=== PATIENT | male | born 1950 | race Caucasian/White ===

== ENCOUNTER → 2020-08-22 09:32 | Outpatient (REF) | payer MEDICARE, OTHER, SELFPAY ==
--- NOTE | 2020-08-22 09:30 | CA_ITS ---
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 The visually estimated ejection fraction is between 55-60%. - No obvious valvular pathology seen on this study. - There is mild dilatation of the ascending aorta measuring 4.40 cm and mild dilatation of the aortic arch measuring 3.60 cm. Findings Left Ventricle Normal left ventricular cavity size. There is mildly increased left ventricular wall thickness. The left ventricular systolic function is normal. The visually estimated ejection fraction is between 55-60%. There is no evidence of regional wall motion abnormalities. E/E prime ratio is <8, consistent with normal filling pressures. Evidence suggests grade I (mild) diastolic dysfunction. Right Ventricle Normal right ventricular cavity size and systolic function. Atria The left atrium is mildly dilated. The right atrium is normal in size. Aortic Valve There is a normal trileaflet aortic valve. There is no aortic valve stenosis. There is trace (trivial) aortic valve regurgitation. Mitral Valve The mitral valve appears normal. There is trace mitral valve regurgitation. There is no mitral valve stenosis. Pulmonic Valve The pulmonic valve was not well visualized. Tricuspid Valve Normal tricuspid valve structure. There is mild tricuspid valve regurgitation. The pulmonary artery systolic pressure is normal. Great Vessels There is mild dilatation of the ascending aorta measuring 4.40 cm and mild dilatation of the aortic arch measuring 3.60 cm. Venous The inferior vena cava is normal in size and collapses greater than 50% with inspiration. Pericardium/Pleural There is no evidence of pericardial effusion. Prior Study Comparison No significant change compared to prior study dated: 02/26/2020. Recommendations, Care & Conclusions No obvious valvular pathology seen on this study. Measurements 2D Linear Measurements IVSd: 1.12 0.6-0.9/0.6-1.0 cm LVIDd: 4.69 3.9-5.3/4.2-5.9 cm LVIDd Index: 2.02 2.4-3.2/2.2-3.1 cm/m2 LVIDs: 3.11 2.0-3.6 cm LVPWd: 1.11 0.7-1.1 cm Ao Root: 3.90 2.1-3.5 cm LA Diam: 4.10 2.7-3.8/3.0-4.0 cm LAIDs Index: 1.77 1.5-2.3 cm/m2 LV Mass: 237.34 67-162/88-224 g LV Mass Index: 102.30 43-95/49-115 g/m2 LVOT Diam: 2.40 3.0+(-)1.3 cm 2D Systolic Function EF 4C: 59.90 >55% EF 2C: 64.80 >55% EF BiP: 62.40 >55% Mitral Valve MV Pk E: 0.48 MV PK A: 0.62 MV Decel Time: 257.00 E/A: 0.80 E'Lateral: 7.35 E'Medial: 4.54 E/E' Med: 10.60 E/E' Lat: 6.50 PHT: 75.00 MVA PHT: 2.93 Decel [place]: 1.87 Aortic Valve AoV Pk Walter: 1.15 AoV Mn Walter: 0.78 AoV VTI: 0.24 AoV Pk Grad: 5.00 Aov Mn Grad: 3.00 BESSIE Cont.VTI: 3.75 LVOT LVOT Pk Walter: 0.91 LVOT Mn Walter: 0.58 LVOT VTI: 0.20 LVOT Pk Grad: 3.00 LVOT Mn Grad: 2.00 LVOT Diam: 2.40 LVOT Area: 4.52 Diastolic Function MV Pk E: 0.48 MV Pk A: 0.62 E/A: 0.80 E'Medial: 4.54 E/E' Med: 10.60 E' Laterial: 7.35 E/E' Lat: 6.50 Tricuspid Valve TR Pk Walter: 2.08 TR Pk Grad: 17.00 RA Press: 3.00 RVSP: 20.00 Great Vessels Aorta Ao Root-2D: 3.90 2.0-3.7 cm Ao Asc: 4.40 2.1-3.4 cm Ao Arch: 3.60 Updated in Other Vendor System with Status of Final Guy Louie MD electronically signed on 08/23/2020 2:07:40 PM with status of Final
== END ==
LOC: HO.CARD 09:32
PROVIDERS: PCP Internal Medicine; Visit Provider Internal Medicine Cardiovascular Disease
DX: I25.10 Atherosclerotic heart disease of native coronary artery without angina pectoris (principal); I71.2 Thoracic aortic aneurysm, without rupture; Z86.79 Personal history of other diseases of the circulatory system
CPT/HCPCS: 93306

== ENCOUNTER → 2020-08-28 08:51 | Outpatient (BNVA) | payer MEDICARE, OTHER, SELFPAY | PROVIDERS: PCP Internal Medicine; Visit Provider Internal Medicine Cardiovascular Disease | DX: I71.2 Thoracic aortic aneurysm, without rupture (principal); I25.10 Atherosclerotic heart disease of native coronary artery without angina pectoris; Z86.79 Personal history of other diseases of the circulatory system; Z79.899 Other long term (current) drug therapy | CPT/HCPCS: 93005; 99212 ==

== ENCOUNTER 2020-12-16 07:57 | Outpatient (REF) | payer MEDICARE, OTHER, SELFPAY ==
[2020-12-16 11:53] LABS: Alanine Aminotransferase 21 U/L (0-40); Anion Gap 12 (12-20); Aspartate Amino Transferase 20 U/L (5-37); Blood Urea Nitrogen 14 mg/dL (9-16); Calcium 8.6 mg/dL (8.4-10.2); Carbon Dioxide 26 mmol/L (22-29); Chloride 107 mmol/L (96-108); Cholesterol 128 mg/dL; Estimated Glomerular Filt Rate > 60; Glucose Fasting 179 mg/dL (60-99); HDL Cholesterol 47 mg/dL; LDL Cholesterol Calculated 68 mg/dl; Potassium 4.5 mmol/L (3.3-5.1); Sodium 140 mmol/L (135-145); Triglycerides 69 mg/dL
[2020-12-16 12:17] LABS: Estimated Average Glucose 163 mg/dL; Hemoglobin A1c % 7.3 %
== END 2020-12-16 07:58 | disposition home or self-care (01) ==
LOC: HO.HMGCLDS 07:57
PROVIDERS: PCP Internal Medicine; Visit Provider Internal Medicine
DX: E11.9 Type 2 diabetes mellitus without complications (principal); E78.5 Hyperlipidemia, unspecified; I10 Essential (primary) hypertension
CPT/HCPCS: 36415; 80048; 80061; 83036; 84450; 84460

== ENCOUNTER 2021-03-14 07:42 | Outpatient (REF) | payer MEDICARE, OTHER, SELFPAY ==
[2021-03-14 11:28] LABS: Estimated Average Glucose 154 mg/dL
[2021-03-14 11:41] LABS: Alanine Aminotransferase 21 U/L (0-40); Anion Gap 11 (12-20); Aspartate Amino Transferase 17 U/L (5-37); Blood Urea Nitrogen 16 mg/dL (9-16); Calcium 9.1 mg/dL (8.4-10.2); Carbon Dioxide 27 mmol/L (22-29); Chloride 102 mmol/L (96-108); Cholesterol 132 mg/dL; Estimated Glomerular Filt Rate > 60; Glucose Fasting 172 mg/dL (60-99); HDL Cholesterol 42 mg/dL; LDL Cholesterol Calculated 69 mg/dl; Potassium 4.5 mmol/L (3.3-5.1); Sodium 135 mmol/L (135-145); Triglycerides 105 mg/dL
== END 2021-03-14 07:43 | disposition home or self-care (01) ==
LOC: HO.HMGCLDS 07:42
PROVIDERS: PCP Internal Medicine; Visit Provider Internal Medicine
DX: E11.65 Type 2 diabetes mellitus with hyperglycemia (principal); E66.09 Other obesity due to excess calories; I10 Essential (primary) hypertension; I25.10 Atherosclerotic heart disease of native coronary artery without angina pectoris
CPT/HCPCS: 36415; 80048; 80061; 83036; 84450; 84460

== ENCOUNTER 2021-06-12 09:01 | Outpatient (REF) | payer MEDICARE, OTHER, SELFPAY ==
[2021-06-12 12:44] LABS: Estimated Average Glucose 166 mg/dL; Hemoglobin A1c % 7.4 %
[2021-06-12 13:06] LABS: Alanine Aminotransferase 27 U/L (0-40); Anion Gap 13 (12-20); Aspartate Amino Transferase 25 U/L (5-37); Blood Urea Nitrogen 18 mg/dL (9-16); Calcium 9.6 mg/dL (8.4-10.2); Carbon Dioxide 27 mmol/L (22-29); Chloride 106 mmol/L (96-108); Cholesterol 124 mg/dL; Estimated Glomerular Filt Rate > 60; Glucose Fasting 204 mg/dL (60-99); HDL Cholesterol 46 mg/dL; LDL Cholesterol Calculated 65 mg/dl; Sodium 141 mmol/L (135-145); Triglycerides 66 mg/dL
== END 2021-06-12 09:02 | disposition home or self-care (01) ==
LOC: HO.HMGCLDS 09:01
PROVIDERS: PCP Internal Medicine; Visit Provider Internal Medicine
DX: E66.09 Other obesity due to excess calories (principal); I10 Essential (primary) hypertension; I25.10 Atherosclerotic heart disease of native coronary artery without angina pectoris; E11.9 Type 2 diabetes mellitus without complications
CPT/HCPCS: 36415; 80048; 80061; 83036; 84450; 84460

== ENCOUNTER → 2021-08-20 14:39 | Outpatient (REF) | payer MEDICARE, OTHER, SELFPAY ==
--- NOTE | 2021-08-20 14:42 | CA_ITS ---
Transthoracic Echocardiogram Patient (Last, First, Middle): Harley Canseco, Gender: Male Date of : 1950 Age: 70 Procedure Date: 08/20/2021 Procedure Type: Transthoracic Echocardiogram Location: OP Height: 182.88 cm Weight: 106.6 kg BSA: 2.28 m2 Heart Rate: bpm BP: 122 / 80 mmHg Crime Data Specialist: ROGER Hernandez MD: Kb Ariza MD Circuit Rider: Kb Ariza MD Symptoms: I71.2 - Thoracic aortic aneurysm, without rupture Study Quality: Fair ECG Rhythm: Sinus Conclusions: - 1. Normal LV systolic function with grade 1 diastolic dysfunction 2. Mildly dilated ascending aorta at 4.4 cm 3. Normal cardiac valvular Doppler 4. Normal RV systolic pressure 5. No gross pericardial effusion Findings Left Ventricle Normal left ventricular size, thickness, and systolic function. The visually estimated ejection fraction is between 55-60%. Spectral Doppler is indicative of an impaired relaxation filling pattern. E/E prime ratio is <8, consistent with normal filling pressures. Evidence suggests grade I (mild) diastolic dysfunction.Measured global endocardial longitudinal strain is 16.4%, slightly reduced Right Ventricle Normal right ventricular cavity size and systolic function. Atria The left atrium is likely dilated. There is no evidence of interatrial shunt. The right atrium is normal in size. Aortic Valve Normal aortic valve structure and function. There is no aortic valve stenosis. There is no aortic valve regurgitation. Mitral Valve There is mild anterior and posterior mitral leaflet thickening. There is trace mitral valve regurgitation. There is no mitral valve stenosis. Pulmonic Valve The pulmonic valve was not well visualized. Tricuspid Valve Likely normal tricuspid valve structure and function. There is trace tricuspid valve regurgitation. The right ventricular systolic pressure is normal. The right ventricular systolic pressure is 24 mmHg. Normal right atrial pressure. There is no evidence of pulmonary hypertension. Great Vessels The pulmonary artery was not well visualized. There is mild dilatation of the ascending aorta measuring 4.40 cm. Venous The inferior vena cava is normal in size and collapses greater than 50% with inspiration. Pericardium/Pleural There is no evidence of pericardial effusion. Prior Study Comparison No significant change compared to prior study dated: 08/22/2020. Measurements 2D Linear Measurements IVSd: 1.15 0.6-0.9/0.6-1.0 cm LVIDd: 4.80 3.9-5.3/4.2-5.9 cm LVIDd Index: 2.11 2.4-3.2/2.2-3.1 cm/m2 LVIDs: 2.98 2.0-3.6 cm LVPWd: 1.19 0.7-1.1 cm LA Diam: 4.70 2.7-3.8/3.0-4.0 cm LAIDs Index: 2.06 1.5-2.3 cm/m2 LV Mass: 263.54 67-162/88-224 g LV Mass Index: 115.59 43-95/49-115 g/m2 LVOT Diam: 2.50 3.0+(-)1.3 cm 2D Systolic Function EF 4C: 57.10 >55% EF 2C: 55.60 >55% EF BiP: 55.50 >55% Mitral Valve MV Pk E: 0.45 MV PK A: 0.71 MV Decel Time: 437.00 E/A: 0.60 E'Lateral: 5.77 E'Medial: 4.90 E/E' Med: 9.30 E/E' Lat: 7.90 PHT: 128.00 MVA PHT: 1.72 Decel Bee: 1.04 Aortic Valve AoV Pk Walter: 1.00 AoV Mn Walter: 0.68 AoV VTI: 0.21 AoV Pk Grad: 4.00 Aov Mn Grad: 2.00 BESSIE Cont.VTI: 3.99 LVOT LVOT Pk Walter: 0.80 LVOT Mn Walter: 0.52 LVOT VTI: 0.17 LVOT Pk Grad: 3.00 LVOT Mn Grad: 1.00 LVOT Diam: 2.50 LVOT Area: 4.91 Diastolic Function MV Pk E: 0.45 MV Pk A: 0.71 E/A: 0.60 E'Medial: 4.90 E/E' Med: 9.30 E' Laterial: 5.77 E/E' Lat: 7.90 Right Ventricle TAPSE (mm): 16.00 TVS' Walter: 8.70 Tricuspid Valve TR Pk Walter: 2.27 TR Pk Grad: 21.00 RA Press: 3.00 RVSP: 24.00 Great Vessels Aorta Sinus of Valsalva: 3.90 2.0-3.5 cm Ao Asc: 4.40 2.1-3.4 cm Ao Arch: 3.60 Updated in Other Vendor System with Status of Final Kb Ariza MD electronically signed on 08/21/2021 2:59:11 PM with status of Final
== END ==
LOC: HO.CARD 14:39
PROVIDERS: PCP Internal Medicine; Visit Provider Internal Medicine Cardiovascular Disease
DX: I71.2 Thoracic aortic aneurysm, without rupture (principal)
CPT/HCPCS: 93306; 93356

== ENCOUNTER 2021-10-13 08:00 | Outpatient (REF) | payer MEDICARE, OTHER, SELFPAY ==
[2021-10-13 12:10] LABS: Estimated Average Glucose 157 mg/dL; Hemoglobin A1c % 7.1 %
[2021-10-13 12:11] LABS: Alanine Aminotransferase 20 U/L (0-40); Anion Gap 11 (12-20); Aspartate Amino Transferase 19 U/L (5-37); Blood Urea Nitrogen 11 mg/dL (9-16); Calcium 9.4 mg/dL (8.4-10.2); Carbon Dioxide 27 mmol/L (22-29); Chloride 106 mmol/L (96-108); Cholesterol 118 mg/dL; Estimated Glomerular Filt Rate > 60; Glucose Fasting 177 mg/dL (60-99); HDL Cholesterol 45 mg/dL; LDL Cholesterol Calculated 55 mg/dl; Potassium 4.6 mmol/L (3.3-5.1); Sodium 139 mmol/L (135-145); Triglycerides 92 mg/dL
[2021-10-13 12:25] LABS: Creatinine Urine 136.19 mg/dL
== END 2021-10-13 08:01 | disposition home or self-care (01) ==
LOC: HO.HMGCLDS 08:00
PROVIDERS: Visit Provider Internal Medicine
DX: E66.09 Other obesity due to excess calories (principal); I10 Essential (primary) hypertension; I25.10 Atherosclerotic heart disease of native coronary artery without angina pectoris; E11.9 Type 2 diabetes mellitus without complications
CPT/HCPCS: 36415; 80048; 80061; 82043; 83036; 84450; 84460

== ENCOUNTER 2022-04-15 07:30 | Outpatient (REF) | payer MEDICARE, OTHER, SELFPAY ==
[2022-04-15 11:32] LABS: Estimated Average Glucose 143 mg/dL; Hemoglobin A1c % 6.6 %
[2022-04-15 11:52] LABS: Alanine Aminotransferase 19 U/L (0-40); Anion Gap 13 (12-20); Aspartate Amino Transferase 18 U/L (5-37); Blood Urea Nitrogen 18 mg/dL (9-16); Calcium 9.2 mg/dL (8.4-10.2); Carbon Dioxide 26 mmol/L (22-29); Chloride 105 mmol/L (96-108); Cholesterol 126 mg/dL; Estimated Glomerular Filt Rate > 60; Glucose Fasting 170 mg/dL (60-99); HDL Cholesterol 49 mg/dL; LDL Cholesterol Calculated 55 mg/dl; Potassium 4.7 mmol/L (3.3-5.1); Sodium 139 mmol/L (135-145); Triglycerides 112 mg/dL
[2022-04-15 11:55] LABS: PSA,Total (Free>4and<10) 0.41 ng/mL (0.00-4.00)
== END 2022-04-15 07:31 | disposition home or self-care (01) ==
LOC: HO.HMGCLDS 07:30
PROVIDERS: PCP Internal Medicine; Visit Provider Internal Medicine
DX: Z12.5 Encounter for screening for malignant neoplasm of prostate (principal); E66.09 Other obesity due to excess calories; I10 Essential (primary) hypertension; I25.10 Atherosclerotic heart disease of native coronary artery without angina pectoris; E11.9 Type 2 diabetes mellitus without complications
CPT/HCPCS: 36415; 80048; 80061; 82306; 83036; 84153; 84450; 84460

== ENCOUNTER 2022-06-15 11:24 | Outpatient (REF) | payer MEDICARE, OTHER, SELFPAY ==
[2022-06-15 12:14] LABS: Influenza A PCR NEGATIVE (Negative); Influenza B PCR NEGATIVE (Negative); Resp Syncy Virus RNA Qual PCR NEGATIVE (Negative); SARS COV2 PCR INHOUSE NEGATIVE (Negative)
== END 2022-06-15 11:25 | disposition home or self-care (01) ==
LOC: HO.LNP 11:24
PROVIDERS: Visit Provider Physician Assistant
DX: Z20.822 Contact with and (suspected) exposure to COVID-19 (principal); B34.9 Viral infection, unspecified
CPT/HCPCS: 0241U

== ENCOUNTER → 2022-09-01 09:47 | Outpatient (REF) | payer MEDICARE, SELFPAY ==
--- NOTE | 2022-09-01 09:52 | CA_ITS ---
Transthoracic Echocardiogram Patient (Last, First, Middle): Harley Canseco, Gender: Male Date of : 1950 Age: 71 Procedure Date: 09/01/2022 Procedure Type: Transthoracic Echocardiogram Location: OP Height: 180.34 cm Weight: 104.33 kg BSA: 2.24 m2 Heart Rate: 57 bpm BP: 130 / 68 mmHg Beverage Specialist: DINORA Referring MD: Kb Ariza MD Symptoms: I71.2 - Thoracic aortic aneurysm, without rupture Study Quality: Adequate ECG Rhythm: Bradycardia Conclusions: - The left ventricular systolic function is normal. The calculated ejection fraction is 55% by biplane method. - No obvious valvular pathology seen on this study. - There is moderate dilatation of the ascending aorta measuring 4.60 cm. Findings Left Ventricle Normal left ventricular cavity size. There is normal left ventricular wall thickness. The left ventricular systolic function is normal. The calculated ejection fraction is 55% by biplane method. There is no evidence of regional wall motion abnormalities. Diastolic function is normal for age. LV peak GLS -15.8%. Right Ventricle Normal right ventricular cavity size and systolic function. Atria Both atria are normal in size. Aortic Valve There is a normal trileaflet aortic valve. There is no aortic valve stenosis. There is no aortic valve regurgitation. Mitral Valve The mitral valve appears normal. There is no mitral valve regurgitation. There is no mitral valve stenosis. Pulmonic Valve The pulmonic valve is likely normal. Tricuspid Valve Normal tricuspid valve structure. There is mild tricuspid valve regurgitation. There is no evidence of pulmonary hypertension. Great Vessels The sinuses of valsalva and aortic arch are normal in size. There is moderate dilatation of the ascending aorta measuring 4.60 cm. Venous The inferior vena cava was not well visualized. Pericardium/Pleural There is no evidence of pericardial effusion. Prior Study Comparison No significant change compared to prior study dated: 08/20/2021. slight increase in ascending aortic size. Recommendations, Care & Conclusions No obvious valvular pathology seen on this study. Measurements 2D Linear Measurements IVSd: 1.05 0.6-0.9/0.6-1.0 cm LVIDd: 5.99 3.9-5.3/4.2-5.9 cm LVIDd Index: 2.67 2.4-3.2/2.2-3.1 cm/m2 LVIDs: 3.86 2.0-3.6 cm LVPWd: 0.69 0.7-1.1 cm LA Diam: 4.10 2.7-3.8/3.0-4.0 cm LAIDs Index: 1.83 1.5-2.3 cm/m2 LV Mass: 256.66 67-162/88-224 g LV Mass Index: 114.58 43-95/49-115 g/m2 LVOT Diam: 2.50 3.0+(-)1.3 cm 2D Systolic Function EF 4C: 55.30 >55% EF 2C: 52.40 >55% EF BiP: 54.90 >55% Mitral Valve MV Pk E: 0.48 MV PK A: 0.45 MV Decel Time: 310.00 E/A: 1.10 E'Lateral: 9.25 E'Medial: 5.00 E/E' Med: 9.60 E/E' Lat: 5.20 PHT: 91.00 MVA PHT: 2.42 Decel [place]: 1.55 Aortic Valve AoV Pk Walter: 1.02 AoV Pk Grad: 4.00 BESSIE: 4.37 LVOT LVOT Pk Walter: 0.91 LVOT Mn Walter: 0.67 LVOT VTI: 0.22 LVOT Pk Grad: 3.00 LVOT Mn Grad: 2.00 LVOT Diam: 2.50 LVOT Area: 4.91 Diastolic Function MV Pk E: 0.48 MV Pk A: 0.45 E/A: 1.10 E'Medial: 5.00 E/E' Med: 9.60 E' Laterial: 9.25 E/E' Lat: 5.20 Right Ventricle TAPSE (mm): 22.60 TVS' Walter: 11.60 Tricuspid Valve TR Pk Walter: 2.16 TR Pk Grad: 19.00 RA Press: 3.00 RVSP: 22.00 Great Vessels Aorta Sinus of Valsalva: 3.90 2.0-3.[address] [place]: 3.50 1.7-3.4 cm Ao Asc: 4.60 2.1-3.4 cm Ao Arch: 3.50 Ao Desc: 2.50 Pulmonary Veins Pulm Vein S/D 1.50 Pulmonary Valve PV Pk Walter: 1.09 Peak PV Grad: 5.00 Updated in Other Vendor System with Status of Final Guy Louie MD electronically signed on 09/01/2022 11:40:40 AM with status of Final
== END ==
LOC: HO.CARD 09:47
PROVIDERS: PCP Internal Medicine; Visit Provider Internal Medicine Cardiovascular Disease
DX: I71.20 Thoracic aortic aneurysm, without rupture, unspecified (principal)
CPT/HCPCS: 93306; 93356

== ENCOUNTER 2022-09-15 07:19 | Outpatient (REF) | payer MEDICARE, SELFPAY ==
[2022-09-15 12:00] LABS: Estimated Average Glucose 151 mg/dL; Hemoglobin A1c % 6.9 %
[2022-09-15 12:16] LABS: Alanine Aminotransferase 27 U/L (0-40); Anion Gap 12 (12-20); Aspartate Amino Transferase 23 U/L (5-37); Blood Urea Nitrogen 10 mg/dL (9-16); Calcium 9.2 mg/dL (8.4-10.2); Carbon Dioxide 29 mmol/L (22-29); Chloride 105 mmol/L (96-108); Cholesterol 123 mg/dL; Estimated Glomerular Filt Rate > 60; Glucose Fasting 164 mg/dL (60-99); HDL Cholesterol 49 mg/dL; LDL Cholesterol Calculated 59 mg/dl; Potassium 4.8 mmol/L (3.3-5.1); Sodium 141 mmol/L (135-145); Triglycerides 77 mg/dL
[2022-09-15 12:24] LABS: Creatinine Urine 103.15 mg/dL; Microalbum/Creatinine Ratio Ur 4.8 ug/mg cr
== END 2022-09-15 07:20 | disposition home or self-care (01) ==
LOC: HO.HMGCLDS 07:19
PROVIDERS: PCP Internal Medicine; Visit Provider Internal Medicine
DX: E66.09 Other obesity due to excess calories (principal); I10 Essential (primary) hypertension; I25.10 Atherosclerotic heart disease of native coronary artery without angina pectoris; E11.9 Type 2 diabetes mellitus without complications
CPT/HCPCS: 36415; 80048; 80061; 82043; 83036; 84450; 84460

== ENCOUNTER → 2022-09-21 10:23 | Outpatient (BNVA) | payer MEDICARE, SELFPAY | PROVIDERS: PCP Internal Medicine; Referring Provider Internal Medicine; Visit Provider Internal Medicine Cardiovascular Disease | DX: I71.20 Thoracic aortic aneurysm, without rupture, unspecified (principal); I25.10 Atherosclerotic heart disease of native coronary artery without angina pectoris; I10 Essential (primary) hypertension; Z98.890 Other specified postprocedural states | CPT/HCPCS: 93005; 99212 ==

== ENCOUNTER 2023-03-21 12:13 | Outpatient (AMB) | payer MEDICARE, SELFPAY ==
--- NOTE | 2023-03-21 11:52 | A.OFFPC_ITS ---
Vital Signs 03/21/23 12:30 Height 6 ft Weight 227 lb BMI 30.8 BP 134/86 Blood Pressure Location Rt brachial Position Sitting Pulse 63 Pulse Source Pulse Oximeter Pulse Oximetry (%) 96 Oxygen Delivery Method Room Air Intake Visit Reasons: Annual PE Intake Note: Patient is here today or his Annual PE. Allergies No Known Allergies Allergy (Verified 03/21/23 13:01) Medication List - Last Reconciled 03/21/23 by Mary Walker MD aspirin (Adult Low Dose Aspirin) 81 mg PO DAILY lisinopril 10 mg PO DAILY metformin 500 mg PO BID 90 days metoprolol succinate ER 100 mg PO DAILY rosuvastatin 20 mg PO BEDTIME Tobacco use date assessed: 03/21/23 Fall risk assessment: No Falls in past year Last assessed Fall Risk: 03/21/23 Dental Screening Dental Screen Date: 03/21/23 Did you have a dental visit in the last 12 months?: Yes Did you have a dental problem in the last 6 months where you did not have access to dental care?: No Was dental information given to patient?: Patient has dentist HPI Annual PE HPI Details 72-year-old male here today for his phys ical exam. He had his last colonoscopy done by Dr. Ozuna in 2011, showed normal findings, overdue for his repeat screening. Patient states that he will just contact Dr. Ozuna's office and will schedule appointment. Is also here for follow-up on his diabetes mellitus, hypertension and hyperlipidemia. He has been taking his medications as directed, but admits to being sedentary not getting much exercise, but has been following recommended diet. His latest hemoglobin A1c is at 6.8%. He has been feeling well, but would like to get rash on his left temporal area checked. Has been present now for the last several weeks, feels scaly/ he also has been experiencing occasional nocturnal leg cramps. Takes magnesium supplements as needed which has been helping. [facility] Medical History (Updated 03/21/23 @ 13:17 by Mary Walker MD) Nocturnal leg cramps Type 2 diabetes mellitus without complication, with no history of insulin use Obesity due to excess calories Diabetes mellitus with hyperglycemia, without long-term current use of insulin HTN (hypertension) History of cardiomyopathy CAD (coronary artery disease) Thoracic aortic aneurysm Surgical History H/O cardiac catheterization Family History Father Diabetes mellitus Mother CVD (cardiovascular disease) Myocardial infarction Sister HTN (hypertension) Breast cancer Sister Breast cancer HTN (hypertension) Brother Cancer of pancreas Lung cancer HTN (hypertension) Sister No problems noted. Sister No problems noted. Sister No problems noted. Sister No problems noted. Daughter No problems noted. Daughter No problems noted. Social History Housing: House Patient Tobacco Use Status: Former Tobacco user Tobacco use type: Cigarette Years Smoked: 42 e-Cigarette/Vaping Use: Never Used Second Hand Smoke Exposure: No service: No Current occupational status: retired Cognitive needs: No Hearing needs: No Vision needs: Yes Questionnaire PHQ-9 Over the last 2 weeks, how often have you been bothered by any of the following problems? 1. Little interest or pleasure in doing things: not at all 2. Feeling down, depressed, or hopeless: not at all 3. Trouble falling or staying asleep, or sleeping too much: not at all 4. Feeling tired or having little energy: not at all 5. Poor appetite or overeating: not at all 6. Feeling bad about yourself - or that you are a failure or have let yourself or your family down: not at all 7. Trouble concentrating on things, such as reading the newspaper or watching television: not at all 8. Moving or speaking so slowly that other people could have noticed. Or the opposite - being so fidgety or restless that you have been moving around a lot more than usual: not at all 9. Thoughts that you would be better off or of hurting yourself in some way: not at all Total score: 0 Depression Screening Interpretation: Negative 70141 - PHQ-9 Billing: Yes Source: Developed by Drs. Barrington Morocho, Pat Eli, Moi Morin and colleagues, with an educational natanael from [employer]. Thrive Questionnaire Date Thrive assessed: 03/21/23 I am a: Patient What is your living situation today?: I have a steady place to live Within the past 12 months, did the food you bought not last and you didn't have the money to get more?: Never true Within the past 12 months, did you worry whether your food would run out before you got money to buy more?: Never true Do you have trouble paying for medicines?: No Do you have trouble getting transportation to medical appointments?: No Do you have trouble paying your heating and electricity bill?: No Do you have trouble taking care of your child, family member or friend?: No Do you have trouble with day-to-day activities such as bathing, preparing meals, shopping, managing finances, etc.?: No Are you currently unemployed and looking for a job?: No Are you interested in more education?: No AUDIT C Alcohol Use Questionnaire (AUDIT-C) 1. How often do you have a drink containing alcohol?: Monthly or less 2. How many drinks containing alcohol do you have on a typical day when you are drinking?: 1 or 2 3. How often do you have six or more drinks on one occasion?: Never Total Score: 1 Score Reviewed/Action Taken: Yes OLIVIER-7 AMB Questionnaire OLIVIER-7 Date OLIVIER - 7 assessed: 03/21/23 Feeling nervous, anxious, or on edge: 0 = Not at all Not being able to stop or control worryin = Not at all Worrying too much about different things: 0 = Not at all Trouble relaxin = Not at all Being so restless that it is hard to sit still: 0 = Not at all Becoming easily annoyed or irritable: 0 = Not at all Feeling afraid as if something awful might happen: 0 = Not at all Total OLIVIER-7 score (0-4 normal; 5-9 mild; 10-14 moderate; 15-21 severe): 0 Source: Developed by Drs. Barrington Morocho, Pat Eli, Moi Morin and colleagues, with an educational natanael from [employer]. OLIVIER-7 Assessment Billing OLIVIER-7 Assessment Tool: OLIVIER-7 Assessment 68638 Review of Systems Const Denies fatigue, Denies fever(s) and Denies weakness Eyes Details: sees Brook Johnson O.Jose yearly Denies change in vision ENT Reports Normal hearing present Card Denies chest pain, Denies leg edema, Denies lightheadedness, Denies palpitations and Denies dyspnea Resp Denies cough and Denies dyspnea GI Denies abdominal pain, Denies melena, Denies hematochezia, Denies change in stool character and Denies heartburn Denies dysuria, Denies testicular mass, Denies testicular pain, Denies urinary frequency and Denies urinary incontinence Musc Denies abnormal gait, Denies back pain, Denies muscle weakness, Denies numbness, Denies radiating pain into limb and Denies tingling Skin/Breast Reports as per HPI Neuro Reports Normal hearing present, Denies abnormal gait, Denies numbness, Denies Sensory deficit (Neuro), Denies tingling and Denies weakness Psych Reports no additional complaints Endo Denies fatigue and Denies palpitations Germain/Lymph Reports no additional complaints Aller/Immun Reports no additional complaints Physical exam (Primary Care) Vital Signs: Last Vital Signs Pulse 63 03/21/23 12:30 BP 134/86 03/21/23 12:30 Pulse Ox 96 03/21/23 12:30 Oxygen Delivery Method Room Air 03/21/23 12:30 BMI result Body Mass Index 30.8 Tobacco/Smoking Status: Tobacco use Status Tobacco use date assessed 03/21/23 03/21/23 12:35 Patient Tobacco Use Status Former Tobacco user 03/21/23 11:52 Tobacco use type Cigarette 03/21/23 11:52 e-Cigarette/Vaping Use Never Used 03/21/23 11:52 PHQ-9: PHQ-9 Score PHQ-9: Total score 0 03/21/23 13:18 Depression Screening Interpretation: Negative Thrive Assessment: Date of Thrive Assessment Date Thrive assessed 03/21/23 03/21/23 12:38 Const General: comfortable, no acute distress and alert Nutritional Appearance: obese Orientation/consciousness: patient oriented x3 Limitations: no limitations HENMT Ears: external ears normal, TM's normal bilaterally and EAC's normal General nose exam: Normal external nose present and No nasal discharge present Mouth: oropharynx normal and moist mucous membranes Eyes General: appearance normal, both eyes and all related structures Conjunctivae: conjunctivae normal Sclerae: sclerae normal Pupils: Equal, round and reactive pupils present EOM: EOMs intact bilaterally Neck Neck: Yes full ROM, Yes no lymphadenopathy and Yes supple Resp Effort & Inspection: normal respiratory effort and able to speak in complete sentences Auscultation: clear to auscultation bilaterally Cardio Rate: regular rate Rhythm: regular rhythm Heart sounds: S1 normal heart sound present and S2 normal heart sound present GI Palpation (GI): Soft to palpation, nontender and no masses Auscultation: normal bowel sounds Back/Spine/Pelvis Back: No back tenderness Skin Other: Scaly erythematous patch on left temporal area, nontender to palpation Neuro General: patient oriented x3, gait normal, tone normal, moves all extremities, Normal light touch and pain sensation and no focal motor deficits Cranial nerves: Yes Equal, round and reactive pupils present and Yes Normal hearing present Cognition (Neuro): normal cognition Sensory Exam: No Sensory deficit (Neuro) Extrem General: Yes full ROM, Yes no joint enlargement, Yes no clubbing, cyanosis or edema and Yes no calf tenderness Psych Appearance: grossly normal and well kempt Mental Status: mental status grossly normal Speech and movement: Normal speech and movement present Affect: normal affect Attitude: cooperative Thought content: Normal thought content present and no homicidality Results AMB Hemoglobin A1c AMB Hemoglobin A1c 6.8 % Last Edit by Radha Campos CMA on 03/21/23 12:43 Results Reviewed Results Reviewed: Laboratory Last Values Hgb A1c (Clinic) 6.8 % (4.0-6.0) H 03/21/23 12:38 Assessment and Plan Assessment & Plan (1) Annual visit for general adult medical examination with abnormal findings: Code(s): Z00.01 - Encounter for general adult medical examination with abnormal findings Plan: Continued regular dental visit every 6 months and regular eye exams, yearly, currently up-to-date.. Take adequate calcium in diet and vitamin-D 3 at 2000 IU per cap once a day, in addition to weight-bearing exercises to help maintain good muscle tone and weight control. Instructed to do self testicular exam to check for any mass. Overdue for his screening colonoscopy done by Dr. Ozuna in 2021. States that he will contact his office and schedule own appointment. Reminded to get his COVID booster, flu shot, and Shingrix vaccination. Up-to-date with his pneumonia vaccine and Tdap (2) Facial skin lesion: Code(s): L98.9 - Disorder of the skin and subcutaneous tissue, unspecified Plan: Has a erythematous scaly lesion on left temporal area, referred to [facility] dermatology for further evaluation and management (3) Type 2 diabetes mellitus without complication, with no history of insulin use: Code(s): E11.9 - Type 2 diabetes mellitus without complications Plan: Recent hemoglobin A1c is 6.8%. Continue with metformin 500 mg per tablet taken 1 tablet twice a day. continue to check fasting blood sugar at home, maintain log and bring to next appointment for review. Reinforced diabetic diet and regular exercise with patient. Counseled regarding importance of yearly diabe nena retinopathy screening, sees Brook Johnson OD. Patient advised to inspect feet daily, for any signs of injury, callus or infection. Compliance with diet and regular exercise again stressed. Blood pressure goal is less than 130/80, goal LDL is less than 100 and goal hemoglobin A1c is less than 7% follow-up appointment made in--August 2023, after fasting labs done. (4) Obesity due to excess calories: Code(s): E66.09 - Other obesity due to excess calories Plan: Continue with adhering to healthy eating habits and getting regular exercise. (5) HTN (hypertension): Code(s): I10 - Essential (primary) hypertension Qualifiers: Hypertension type: primary hypertension Qualified Code(s): I10 - Essential (primary) hypertension Plan: Blood pressure at goal of less than 130/80. Continue with current medication. Reinforced importance of following a low sodium diet, getting regular exercise, and lowering stress levels. Orders: Orders AMB Hemoglobin A1c 03/21/23 E11.9 - Type 2 diabetes mellitus without complications Alanine Aminotransferase 08/19/23 E11.9 - Type 2 diabetes mellitus without complications, E66.09 - Other obesity due to excess calories, G47.62 - Sleep related leg cramps, I10 - Essential (primary) hypertension, I25.10 - Atherosclerotic heart disease of [place] coronary artery without angina pectoris, Z00.01 - Encounter for general adult medical examination with abnormal findings Aspartate Amino Transferase 08/19/23 E11.9 - Type 2 diabetes mellitus without complications, E66.09 - Other obesity due to excess calories, G47.62 - Sleep related leg cramps, I10 - Essential (primary) hypertension, I25.10 - Atherosclerotic heart disease of [place] coronary artery without angina pectoris, Z00.01 - Encounter for general adult medical examination with abnormal findings Hemoglobin A1c 08/19/23 E11.9 - Type 2 diabetes mellitus without complications, E66.09 - Other obesity due to excess calories, G47.62 - Sleep related leg cramps, I10 - Essential (primary) hypertension, I25.10 - Atherosclerotic heart disease of [place] coronary artery without angina pectoris, Z00.01 - Encounter for general adult medical examination with abnormal findings Lipid Panel 08/19/23 E11.9 - Type 2 diabetes mellitus without complications, E66.09 - Other obesity due to excess calories, G47.62 - Sleep related leg cramps, I10 - Essential (primary) hypertension, I25.10 - Atherosclerotic heart disease of [place] coronary artery without angina pectoris, Z00.01 - Encounter for general adult medical examination with abnormal findings Basic Metabolic Panel Fasting 08/19/23 E11.9 - Type 2 diabetes mellitus without complications, E66.09 - Other obesity due to excess calories, G47.62 - Sleep related leg cramps, I10 - Essential (primary) hypertension, I25.10 - Atherosclerotic heart disease of [place] coronary artery without angina pectoris, Z00.01 - Encounter for general adult medical examination with abnormal findings Microalbumin, Random (w Creat) 08/19/23 E11.9 - Type 2 diabetes mellitus without complications, E66.09 - Other obesity due to excess calories, G47.62 - Sleep related leg cramps, I10 - Essential (primary) hypertension, I25.10 - Atherosclerotic heart disease of [place] coronary artery without angina pectoris, Z00.01 - Encounter for general adult medical examination with abnormal findings Vitamin D 25-OH Total 08/19/23 E11.9 - Type 2 diabetes mellitus without complications, E66.09 - Other obesity due to excess calories, G47.62 - Sleep related leg cramps, I10 - Essential (primary) hypertension, I25.10 - Atherosclerotic heart disease of [place] coronary artery without angina pectoris, Z00.01 - Encounter for general adult medical examination with abnormal findings Magnesium 08/19/23 E11.9 - Type 2 diabetes mellitus without complications, E66.09 - Other obesity due to excess calories, G47.62 - Sleep related leg cramps, I10 - Essential (primary) hypertension, I25.10 - Atherosclerotic heart disease of [place] coronary artery without angina pectoris, Z00.01 - Encounter for general adult medical examination with abnormal findings Referrals Dermatology Referral L98.9 - Disorder of the skin and subcutaneous tissue, unspecified Coding Level of Care Code Est Pt Prev Care >65y(86503) Diagnoses Annual visit for general adult medical examination with abnormal findings Z00.01 Facial skin lesion L98.9 Type 2 diabetes mellitus without complication, with no history of insulin use E11.9 Obesity due to excess calories E66.09 Primary hypertension I10 Hypertension type: primary hypertension Additional Codes OLIVIER-7 Assessment Billing - OLIVIER-7 Assessment Tool: OLIVIER-7 Assessment [id number] ([id number])
[2023-03-21 12:30] VITALS: BP 134/86; PULSE 63; O2SAT 96; BMI 30.8
== END 2023-03-21 13:16 | disposition home or self-care (01) ==
PROVIDERS: PCP Internal Medicine; Visit Provider Internal Medicine
DX: E11.9 Type 2 diabetes mellitus without complications (principal)
CPT/HCPCS: 83036; 99397

== ENCOUNTER 2023-07-25 09:10 | Outpatient (AMB) | payer MEDICARE, SELFPAY ==
--- NOTE | 2023-07-25 10:45 | AM.OFFWIN_ITS ---
Intake Vital Signs 07/25/23 10:49 Height 6 ft Weight 228 lb BMI 30.9 BP 122/80 Blood Pressure Location Lt brachial Position Sitting Pulse 76 Pulse Source Pulse Oximeter Temp 98.9 F Temp Source Oral Pulse Oximetry (%) 99 Intake Visit Reasons: EST/ cough/ congestion ([phone]) Intake Note: pt is here today for cough congestion started tuesday Patient Tobacco Use Status: Former Tobacco user Allergies No Known Allergies Allergy (Verified 07/25/23 10:53) Do you need a note to return to daycare/school/sports/work: No HPI HPI Comments History of Present Illness Details Patient presents to the walk in for 3 days cough, congestion, fatigue, bodyaches, fever Reports most bothersome symptom is the dry cough. was sick with same but she is feeling better now Denies chest pain, shortness of breath, palpitations, syncope, weakness Denies headache, ear pain, sore throat. [facility] Medical History (Updated 07/25/23 @ 11:18 by Verenice Hairston APRN, PERSONAL DEVELOPMENT EDUCATOR) Nocturnal leg cramps Type 2 diabetes mellitus without complication, with no history of insulin use Obesity due to excess calories Diabetes mellitus with hyperglycemia, without long-term current use of insulin HTN (hypertension) History of cardiomyopathy CAD (coronary artery disease) Thoracic aortic aneurysm Surgical History H/O cardiac catheterization Family History Father Diabetes mellitus Mother CVD (cardiovascular disease) Myocardial infarction Sister HTN (hypertension) Breast cancer Sister Breast cancer HTN (hypertension) Brother Cancer of pancreas Lung cancer HTN (hypertension) Sister No problems noted. Sister No problems noted. Sister No problems noted. Sister No problems noted. Daughter No problems noted. Daughter No problems noted. Social History Housing: House Patient Tobacco Use Status: Former Tobacco user Tobacco use type: Cigarette Years Smoked: 42 e-Cigarette/Vaping Use: Never Used Second Hand Smoke Exposure: No service: No Current occupational status: retired Cognitive needs: No Hearing needs: No Vision needs: Yes Review of Systems Const All systems reviewed & are unremarkable except as noted in HPI and below Physical Exam Vital Signs: Last Vital Signs Temp 98.9 F 07/25/23 10:49 Pulse 76 07/25/23 10:49 BP 122/80 07/25/23 10:49 Pulse Ox 99 07/25/23 10:49 BMI result Body Mass Index 30.9 General: awake, alert, oriented. Answers questions appropriately. Fully engaged in examination. Skin: warm, dry, intact HEENT: TMs intact bilaterally, no redness. Posterior pharynx without erythema or exudate. Sclera without icterus or injection. no lymphadenopathy. Cardiac: External chest normal in appearance. Respiratory: + dry cough. LSCTAB. Abdomen: without gross distension. Neurological: Oriented to person, place, time and situation. Thought process intact. Psychiatric: Appropriate mood and affect. Good judgment and insight. Assessment & Plan Assessment & Plan (1) Bronchitis: Code(s): J40 - Bronchitis, not specified as acute or chronic Plan Bronchitis: Benzonatate 100mg po bid as needed Prednisone 20 mg daily for 5 days Albuterol MDI 2 puffs every 6 hours as needed Z-Linden as prescribed Rest, drink plenty of fluids, tylenol or motrin as needed. Follow up with pcp or in clinic for any new or worsening symptoms. Go to ER for shortness of breath, chest pain, palpitations, weakness, dizziness. Medications: Refilled benzonatate 100 mg PO BID PRN 14 caps 0RF cough albuterol sulfate 90 mcg/actuation 2 puffs inhalation Q6H PRN 6.7 grams 0RF shortness of breath or wheezing azithromycin For 250 mg dose pack: take 500 mg today (day 1), then 250 mg for 4 days (days 2-5) PO 6 tabs 0RF prednisone 20 mg PO DAILY 5 tabs 0RF 5 days Coding Level of Care Code Est Pt Level 4 (18311) Diagnoses Bronchitis J40
[2023-07-25 10:49] VITALS: BP 122/80; PULSE 76; TEMP 37.2; O2SAT 99; BMI 30.9
== END 2023-07-25 11:31 | disposition home or self-care (01) ==
PROVIDERS: PCP Internal Medicine; Visit Provider Registered Nurse Emergency
DX: J40 Bronchitis, not specified as acute or chronic (principal)
CPT/HCPCS: 99213

== ENCOUNTER 2023-08-22 11:31 | Outpatient (AMB) | payer MEDICARE, SELFPAY ==
[2023-08-22 12:01] VITALS: BP 126/76; PULSE 63; O2SAT 95; BMI 31.2
--- NOTE | 2023-08-22 12:01 | MHC.PC.OV ---
Vital Signs 08/22/23 12:01 Height 6 ft Weight 230 lb BMI 31.2 BP 126/76 Blood Pressure Location Lt brachial Position Sitting Pulse 63 Pulse Source Pulse Oximeter Pulse Oximetry (%) 95 Oxygen Delivery Method Room Air Intake Visit Reasons: 5 month follow up Intake Note: Pt is here today for 5 months follow up visit. Allergies No Known Allergies Allergy (Verified 08/22/23 12:29) Medication List - Last Reconciled 08/22/23 by aMry Walker MD albuterol sulfate 90 mcg/actuation 2 puffs inhalation Q6H PRN aspirin (Adult Low Dose Aspirin) 81 mg PO DAILY lisinopril 10 mg PO DAILY magnesium 250 mg PO DAILY metformin 500 mg PO BID 90 days metoprolol succinate ER 100 mg PO DAILY rosuvastatin 20 mg PO BEDTIME Tobacco use date assessed: 08/22/23 Fall risk assessment: No Falls in past year Last assessed Fall Risk: 08/22/23 Dental Screening Dental Screen Date: 08/22/23 Did you have a dental visit in the last 12 months?: Yes Did you have a dental problem in the last 6 months where you did not have access to dental care?: No Was dental information given to patient?: Patient has dentist HPI 5 month follow up HPI Details 72-year-old male with hypertension, type 2 diabetes mellitus, obesity, coronary artery disease with history of cardiomyopathy and thoracic aortic aneurysm, currently being followed by cardiology, here today for his follow-up. He has been compliant with taking his medications, has been trying to follow recommended diet but admits to not getting much exercise this past few months, has gained some weight. He has been feeling well with no complaints at present time. [facility] Medical History (Updated 08/23/23 @ 01:04 by Mary Walker MD) Nocturnal leg cramps Type 2 diabetes mellitus without complication, with no history of insulin use Obesity due to excess calories Diabetes mellitus with hyperglycemia, without long-term current use of insulin HTN (hypertension) History of cardiomyopathy CAD (coronary artery disease) Thoracic aortic aneurysm Surgical History H/O cardiac catheterization Family History Father Diabetes mellitus Mother CVD (cardiovascular disease) Myocardial infarction Sister HTN (hypertension) Breast cancer Sister Breast cancer HTN (hypertension) Brother Cancer of pancreas Lung cancer HTN (hypertension) Sister No problems noted. Sister No problems noted. Sister No problems noted. Sister No problems noted. Daughter No problems noted. Daughter No problems noted. Social History Housing: House Patient Tobacco Use Status: Former Tobacco user Tobacco use type: Cigarette Years Smoked: 42 e-Cigarette/Vaping Use: Never Used Second Hand Smoke Exposure: No service: No Current occupational status: retired Cognitive needs: No Hearing needs: No Vision needs: Yes Questionnaire PHQ-9 Over the last 2 weeks, how often have you been bothered by any of the following problems? 1. Little interest or pleasure in doing things: not at all 2. Feeling down, depressed, or hopeless: not at all 3. Trouble falling or staying asleep, or sleeping too much: not at all 4. Feeling tired or having little energy: not at all 5. Poor appetite or overeating: not at all 6. Feeling bad about yourself - or that you are a failure or have let yourself or your family down: not at all 7. Trouble concentrating on things, such as reading the newspaper or watching television: not at all 8. Moving or speaking so slowly that other people could have noticed. Or the opposite - being so fidgety or restless that you have been moving around a lot more than usual: not at all 9. Thoughts that you would be better off or of hurting yourself in some way: not at all Total score: 0 Depression Screening Interpretation: Negative Depression Screening Done: Yes 90061 - PHQ-9 Billing: Yes Source: Developed by Drs. Barrington Morocho, Pat Eli, Moi Morin and colleagues, with an educational natanael from [employer]. Thrive Questionnaire Date Thrive assessed: 08/22/23 I am a: Patient What is your living situation today?: I have a steady place to live Within the past 12 months, did the food you bought not last and you didn't have the money to get more?: Never true Within the past 12 months, did you worry whether your food would run out before you got money to buy more?: Never true Do you have trouble paying for medicines?: No Do you have trouble getting transportation to medical appointments?: No Do you have trouble paying your heating and electricity bill?: No Do you have trouble taking care of your child, family member or friend?: No Do you have trouble with day-to-day activities such as bathing, preparing meals, shopping, managing finances, etc.?: No Are you currently unemployed and looking for a job?: No Are you interested in more education?: No Please select the resources that you would like help with: None THRIVE Score: 0 AUDIT C Alcohol Use Questionnaire (AUDIT-C) 1. How often do you have a drink containing alcohol?: Never 3. How often do you have six or more drinks on one occasion?: Never Total Score: 0 OLIVIER-7 AMB Questionnaire OLIVIER-7 Date OLIVIER - 7 assessed: 08/22/23 Feeling nervous, anxious, or on edge: 0 = Not at all Not being able to stop or control worryin = Not at all Worrying too much about different things: 0 = Not at all Trouble relaxin = Not at all Being so restless that it is hard to sit still: 0 = Not at all Becoming easily annoyed or irritable: 0 = Not at all Feeling afraid as if something awful might happen: 0 = Not at all Total OLIVIER-7 score (0-4 normal; 5-9 mild; 10-14 moderate; 15-21 severe): 0 Source: Developed by Drs. Barrington Morocho, Pat Eli, Moi Morin and colleagues, with an educational natanael from [employer]. OLIVIER-7 Assessment Billing OLIVIER-7 Assessment Tool: OLIVIER-7 Assessment 40524 Review of Systems Const Denies fatigue, Denies fever(s) and Denies weakness Eyes Details: sees Brook Johnson O.Jose yearly Denies change in vision ENT Reports Normal hearing present Card Denies chest pain, Denies leg edema, Denies lightheadedness, Denies palpitations and Denies dyspnea Resp Denies cough and Denies dyspnea GI Denies abdominal pain, Denies melena, Denies hematochezia, Denies change in stool character and Denies heartburn Denies dysuria, Denies testicular mass, Denies testicular pain, Denies urinary frequency and Denies urinary incontinence Musc Denies abnormal gait, Denies back pain, Denies muscle weakness, Denies numbness, Denies radiating pain into limb and Denies tingling Skin/Breast Denies lesions and Denies rash Neuro Reports Normal hearing present, Denies abnormal gait, Denies numbness, Denies Sensory deficit (Neuro), Denies tingling and Denies weakness Psych Reports no additional complaints Endo Denies fatigue and Denies palpitations Germain/Lymph Reports no additional complaints Aller/Immun Reports no additional complaints Physical exam (Primary Care) Vital Signs: Last Vital Signs Pulse 63 08/22/23 12:01 BP 126/76 08/22/23 12:01 Pulse Ox 95 08/22/23 12:01 Oxygen Delivery Method Room Air 08/22/23 12:01 BMI result Body Mass Index 31.2 Tobacco/Smoking Status: Tobacco use Status Tobacco use date assessed 08/22/23 08/22/23 12:05 Patient Tobacco Use Status Former Tobacco user 08/22/23 12:02 Tobacco use type Cigarette 08/22/23 12:02 e-Cigarette/Vaping Use Never Used 08/22/23 12:02 PHQ-9: PHQ-9 Score PHQ-9: Total score 0 08/23/23 01:09 Depression Screening Interpretation: Negative Thrive Assessment: Date of Thrive Assessment Date Thrive assessed 08/22/23 08/22/23 12:06 Const General: comfortable, no acute distress and alert Nutritional Appearance: obese Orientation/consciousness: patient oriented x3 HENMT Ears: external ears normal, TM's normal bilaterally and EAC's normal General nose exam: Normal external nose present and No nasal discharge present Mouth: oropharynx normal and moist mucous membranes Eyes General: appearance normal, both eyes and all related structures Conjunctivae: conjunctivae normal Sclerae: sclerae normal Pupils: Equal, round and reactive pupils present EOM: EOMs intact bilaterally Neck Neck: Yes full ROM, Yes no lymphadenopathy and Yes supple Resp Effort & Inspection: normal respiratory effort and able to speak in complete sentences Auscultation: clear to auscultation bilaterally Cardio Rate: regular rate Rhythm: regular rhythm Heart sounds: S1 normal heart sound present and S2 normal heart sound present GI Palpation (GI): Soft to palpation, nontender and no masses Auscultation: normal bowel sounds Back/Spine/Pelvis Back: No back tenderness Neuro General: patient oriented x3, gait normal, tone normal, moves all extremities, Normal light touch and pain sensation and no focal motor deficits Cranial nerves: Yes Equal, round and reactive pupils present and Yes Normal hearing present Cognition (Neuro): normal cognition Sensory Exam: No Sensory deficit (Neuro) Extrem General: Yes full ROM, Yes no joint enlargement and Yes no clubbing, cyanosis or edema Psych Appearance: grossly normal and well kempt Mental Status: mental status grossly normal Speech and movement: Normal speech and movement present Affect: normal affect Attitude: cooperative Thought content: Normal thought content present Assessment and Plan Assessment & Plan (1) Nocturnal leg cramps: Comment: Improved with taking magnesium supplements Code(s): G47.62 - Sleep related leg cramps Plan: Resolved with taking [id number] magnesium supplement (2) Type 2 diabetes mellitus without complication, with no history of insulin use: Code(s): E11.9 - Type 2 diabetes mellitus without complications Plan: Advised to get fasting labs done, in the meantime continue with metformin 500 mg per tablet taken 1 tablet twice a day with meals, up-to-date with his diabetes retinopathy screening, up-to-date with his vaccines. Reinforced importance of following recommended diet and getting regular exercise (3) Obesity due to excess calories: Code(s): E66.09 - Other obesity due to excess calories Plan: Y Discussed need to increase activity and weight reduction. Recommended focusing on improving health instead of dieting. Mediterranean diet is a healthy diet that helps, limit food high in fat, sugar, and calories. Eat slowly, pay attention to portion sizes, plan your meals ahead of time, start regular physical activity, at least 150 minutes of moderate intensity exercise, or 90 minutes per week of vigorous exercise. (4) HTN (hypertension): Code(s): I10 - Essential (primary) hypertension Qualifiers: Hypertension type: primary hypertension Qualified Code(s): I10 - Essential (primary) hypertension Plan: Blood pressure at goal of less than 130/80. Continue with current medication. Reinforced importance of following a low sodium diet, getting regular exercise, and lowering stress levels. Coding Level of Care Code Est Pt Level 3 (70891) Diagnoses Nocturnal leg cramps G47.62 Type 2 diabetes mellitus without complication, with no history of insulin use E11.9 Obesity due to excess calories E66.09 Primary hypertension I10 Hypertension type: primary hypertension Additional Codes OLIVIER-7 Assessment Billing - OLIVIER-7 Assessment Tool: OLIVIER-7 Assessment 85123 ([id number])
== END 2023-08-22 12:54 | disposition home or self-care (01) ==
PROVIDERS: PCP Internal Medicine; Visit Provider Internal Medicine
DX: E11.9 Type 2 diabetes mellitus without complications (principal); G47.62 Sleep related leg cramps; Z68.31 Body mass index [BMI] 31.0-31.9, adult; E66.09 Other obesity due to excess calories; I10 Essential (primary) hypertension
CPT/HCPCS: 99213

== ENCOUNTER 2023-08-26 06:35 | Outpatient (REF) | payer MEDICARE, SELFPAY ==
[2023-08-26 11:47] LABS: Estimated Average Glucose 166 mg/dL; Hemoglobin A1c % 7.4 % (<6.0)
[2023-08-26 12:07] LABS: Alanine Aminotransferase 23 U/L (0-40); Anion Gap 7 (12-20); Aspartate Amino Transferase 22 U/L (5-37); Blood Urea Nitrogen 11 mg/dL (9-16); Calcium 8.9 mg/dL (8.4-10.2); Carbon Dioxide 28 mmol/L (22-29); Chloride 109 mmol/L (96-108); Cholesterol 124 mg/dL (<200); Estimated Glomerular Filt Rate > 60; Glucose Fasting 147 mg/dL (60-99); HDL Cholesterol 43 mg/dL (>40); LDL Cholesterol Calculated 62 mg/dL (<100); Magnesium 2.1 mg/dL (1.6-2.6); Microalbum/Creatinine Ratio Ur 6.2 ug/mg cr (<30); Potassium 4.1 mmol/L (3.3-5.1); Sodium 140 mmol/L (135-145); Triglycerides 96 mg/dL (<150); Vitamin D 25-OH Total 39.8 ng/mL (>30)
== END 2023-08-26 06:36 | disposition home or self-care (01) ==
LOC: HO.HMGCLDS 06:35
PROVIDERS: PCP Internal Medicine; Visit Provider Internal Medicine
DX: Z00.01 Encounter for general adult medical examination with abnormal findings (principal); E11.9 Type 2 diabetes mellitus without complications; E66.09 Other obesity due to excess calories; I10 Essential (primary) hypertension; I25.10 Atherosclerotic heart disease of native coronary artery without angina pectoris; G47.62 Sleep related leg cramps
CPT/HCPCS: 36415; 80048; 80061; 82043; 82306; 82570; 83036; 83735; 84450; 84460

== ENCOUNTER 2023-09-26 10:28 | Outpatient (AMB) | payer MEDICARE, SELFPAY ==
--- NOTE | 2023-09-26 10:51 | A.OFFVIS_ITS ---
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 He has been doing very well. For some reason his echocardiogram was canceled unclear. His blood pressure occasionally runs into systolic 140. He has no cardiac symptoms. Denies any exertional chest pain. Denies any worsening shortness of breath, orthopnea, PND. No lightheadedness, syncope. No prolonged palpitations irregular heartbeat. [facility] Medical History (Updated 09/26/23 @ 11:17 by Kb Ariza MD) History of cardiomyopathy Nocturnal leg cramps Type 2 diabetes mellitus without complication, with no history of insulin use Obesity due to excess calories Diabetes mellitus with hyperglycemia, without long-term current use of insulin HTN (hypertension) CAD (coronary artery disease) Thoracic aortic aneurysm Surgical History H/O cardiac catheterization Family History Father Diabetes mellitus Mother CVD (cardiovascular disease) Myocardial infarction Sister HTN (hypertension) Breast cancer Sister Breast cancer HTN (hypertension) Brother Cancer of pancreas Lung cancer HTN (hypertension) Sister No problems noted. Sister No problems noted. Sister No problems noted. Sister No problems noted. Daughter No problems noted. Daughter No problems noted. Social History Housing: House Patient Tobacco Use Status: Former Tobacco user Tobacco use type: Cigarette Years Smoked: 42 e-Cigarette/Vaping Use: Never Used Second Hand Smoke Exposure: No service: No Current occupational status: retired Cognitive needs: No Hearing needs: No Vision needs: Yes Review of Systems Const Denies chills, Denies fatigue, Denies fever(s), Denies frequent falls, Denies weakness, Denies weight gain and Denies weight loss ENT Denies dizziness Card Denies chest pain, Denies leg edema, Denies lightheadedness, Denies palpitations, Denies dyspnea, Denies dyspnea on exertion, Denies orthopnea and Denies other (loss of consciousness) Resp Denies cough, Denies dyspnea and Denies dyspnea on exertion GI Denies hematochezia and Denies change in stool character Musc Denies abnormal gait, Denies muscle weakness, Denies numbness, Denies radiating pain into limb and Denies tingling Neuro Denies abnormal gait, Denies dizziness, Denies frequent falls, Denies numbness, Denies tingling and Denies weakness Endo Denies fatigue and Denies palpitations Physical Exam Vital Signs: Last Vital Signs Pulse 58 09/26/23 10:52 BP 134/80 09/26/23 10:52 BMI result Body Mass Index 32.3 Const General: cooperative, comfortable, alert and awake Nutritional Appearance: obese Orientation/consciousness: patient oriented x3 Limitations: no limitations Neck Neck: Yes trachea midline, Yes supple and Yes no JVD Chest Chest palpation & inspection: normal inspection of the chest Resp Effort & Inspection: normal respiratory effort Auscultation: clear to auscultation bilaterally Cardio Jugular venous distension: no JVD Palpation: normal PMI Rate: regular rate Rhythm: regular rhythm Heart sounds: S1 normal heart sound present and S2 normal heart sound present Skin General skin exam: no rashes or lesions noted Neuro General: patient oriented x3 and no focal motor deficits Extrem General: Yes no clubbing, cyanosis or edema Psych Appearance: grossly normal Office Procedures EKG Details: EKG shows sinus bradycardia at 58 beats per minute otherwise normal EKG [id number], Complete Assessment & Plan Assessment & Plan (1) Thoracic aortic aneurysm: Code(s): I71.2 - Thoracic aortic aneurysm, without rupture Plan: Thoracic aortic aneurysm which is moderately enlarged. No interventions required for the same at this point time. Follow-up echocardiogram needed. Advised to avoid sudden strenuous isometric exercise. Continue aggressive control blood pressure. Will increase lisinopril to 20 mg daily to target goal blood pressure less than systolic 130 at all times. Continue metoprolol therapy. Continue maintain activity level as tolerated. (2) CAD (coronary artery disease): Code(s): I25.10 - Atherosclerotic heart disease of [place] coronary artery without angina pectoris Plan: CAD without any new symptoms. Continue aggressive medical therapy. Continue low-dose aspirin therapy for life. Continue aggressive blood pressure control, see above. Continue low-dose aspirin therapy for life. Continue high-intensity statin therapy with target goal LDL less than 70 mg/dL. Aggressive control of diabetes goal hemoglobin A1c less than 7%. Encouraged to continue participate in physical activity as tolerated along with weight loss program. (3) History of cardiomyopathy: Code(s): Z86.79 - Personal history of other diseases of the circulatory system Plan: Prior history of cardiomyopathy with normalized LV ejection fraction on current neurohormonal modulation with metoprolol and lisinopril. Continue the same. Will uptitrate lisinopril as above. Follow-up echocardiogram near future. Avoidance of cardiotoxic agent such as alcohol was discussed. Will follow up in the clinic in 1 year's time, sooner p.r.n.. Thank you for allowing me to partake in his care Orders: Orders CA echo transthoracic complete Today I71.2 - Thoracic aortic aneurysm, without rupture Medications: New lisinopril 20 mg PO DAILY 90 tabs 3RF I71.2 - Thoracic aortic aneurysm, without rupture Discontinued lisinopril Discontinued Reason: Doctor's Order 10 mg PO DAILY 90 tabs 1RF Coding Level of Care Code Est Pt Level 4 (11049) Diagnoses Thoracic aortic aneurysm I71.2 CAD (coronary artery disease) I25.10 History of cardiomyopathy Z86.79 CPT Codes EKG - CPT: 31996-[id number], Complete ([id number])
[2023-09-26 10:52] VITALS: BP 134/80; PULSE 58; BMI 32.3
== END 2023-09-26 11:18 | disposition home or self-care (01) ==
PROVIDERS: Visit Provider Internal Medicine Cardiovascular Disease
DX: I71.20 Thoracic aortic aneurysm, without rupture, unspecified (principal); I25.10 Atherosclerotic heart disease of native coronary artery without angina pectoris; Z86.79 Personal history of other diseases of the circulatory system
CPT/HCPCS: 93010; 99214

== ENCOUNTER → 2023-09-26 10:28 | Outpatient (BNVA) | payer MEDICARE, SELFPAY | PROVIDERS: Visit Provider Internal Medicine Cardiovascular Disease | DX: I25.10 Atherosclerotic heart disease of native coronary artery without angina pectoris (principal); I71.20 Thoracic aortic aneurysm, without rupture, unspecified; Z86.79 Personal history of other diseases of the circulatory system | CPT/HCPCS: 93005; 99212 ==

== ENCOUNTER → 2023-10-24 09:39 | Outpatient (REF) | payer MEDICARE, SELFPAY ==
--- NOTE | 2023-10-24 09:41 | CA_ITS ---
Transthoracic Echocardiogram Patient (Last, First, Middle): Harley Canseco, Gender: Male Date of : 1950 Age: 72 Procedure Date: 10/24/2023 Procedure Type: Transthoracic Echocardiogram Location: OP Height: 182.88 cm Weight: 107.96 kg BSA: 2.29 m2 Heart Rate: 57 bpm BP: 145 / 80 mmHg Packaging Engineer: AGATA Referring MD: Kb Ariza MD Symptoms: I71.2 - Thoracic aortic aneurysm, without rupture Study Quality: Fair ECG Rhythm: Sinus w/occasional PVCs Conclusions: - The left ventricular systolic function is normal. The calculated ejection fraction is 55% by biplane method. - No obvious valvular pathology seen on this study. - There is mild dilatation of the sinuses of Valsalva measuring 4.20 cm and moderate dilatation of the ascending aorta measuring 4.70 cm. Findings Left Ventricle Normal left ventricular cavity size. There is mildly increased left ventricular wall thickness. The left ventricular systolic function is normal. The calculated ejection fraction is 55% by biplane method. There is no evidence of regional wall motion abnormalities. Diastolic function is normal for age. Right Ventricle Moderately increased right ventricular cavity size. There is normal right ventricular systolic function. Atria Mild biatrial enlargement. Aortic Valve There is a normal trileaflet aortic valve. There is no aortic valve stenosis. There is no aortic valve regurgitation. Mitral Valve The mitral valve appears normal. There is no mitral valve regurgitation. There is no mitral valve stenosis. Pulmonic Valve The pulmonic valve is likely normal. Tricuspid Valve Normal tricuspid valve structure. There is mild tricuspid valve regurgitation. There is no evidence of pulmonary hypertension. Great Vessels There is mild dilatation of the sinuses of Valsalva measuring 4.20 cm and moderate dilatation of the ascending aorta measuring 4.70 cm. Venous The inferior vena cava is normal in size and collapses greater than 50% with inspiration. Pericardium/Pleural There is no evidence of pericardial effusion. Prior Study Comparison Changes noted compared to prior study dated: 09/01/2022. slight increase in ascending aortic size (vs) technical. Recommendations, Care & Conclusions No obvious valvular pathology seen on this study. Measurements 2D Linear Measurements IVSd: 1.19 0.6-0.9/0.6-1.0 cm LVIDd: 4.74 3.9-5.3/4.2-5.9 cm LVIDd Index: 2.07 2.4-3.2/2.2-3.1 cm/m2 LVIDs: 2.67 2.0-3.6 cm LVPWd: 1.26 0.7-1.1 cm LA Diam: 4.20 2.7-3.8/3.0-4.0 cm LAIDs Index: 1.83 1.5-2.3 cm/m2 LV Mass: 275.81 67-162/88-224 g LV Mass Index: 120.44 43-95/49-115 g/m2 LVOT Diam: 2.30 3.0+(-)1.3 cm 2D Systolic Function EF 4C: 59.30 >55% EF 2C: 50.10 >55% EF BiP: 55.20 >55% Mitral Valve MV Pk E: 0.31 MV PK A: 0.62 MV Decel Time: 384.00 E/A: 0.50 E'Lateral: 8.59 E'Medial: 4.68 E/E' Med: 6.60 E/E' Lat: 3.60 PHT: 112.00 MVA PHT: 1.96 Decel [place]: 1.26 Aortic Valve AoV Pk Walter: 1.33 AoV Mn Walter: 0.92 AoV VTI: 0.33 AoV Pk Grad: 7.00 Aov Mn Grad: 4.00 BESSIE Cont.VTI: 3.07 LVOT LVOT Pk Walter: 0.95 LVOT Mn Walter: 0.67 LVOT VTI: 0.24 LVOT Pk Grad: 4.00 LVOT Mn Grad: 2.00 LVOT Diam: 2.30 LVOT Area: 4.15 Diastolic Function MV Pk E: 0.31 MV Pk A: 0.62 E/A: 0.50 E'Medial: 4.68 E/E' Med: 6.60 E' Laterial: 8.59 E/E' Lat: 3.60 Right Ventricle TAPSE (mm): 24.30 TVS' Walter: 12.90 Tricuspid Valve TR Pk Walter: 1.92 TR Pk Grad: 15.00 RA Press: 3.00 RVSP: 18.00 Great Vessels Aorta Sinus of Valsalva: 4.20 2.0-3.5 cm Ao Asc: 4.70 2.1-3.4 cm Ao Arch: 3.80 Pulmonary Valve PV Pk Walter: 1.07 Peak PV Grad: 5.00 Updated in Other Vendor System with Status of Final Guy Louie MD electronically signed on 10/24/2023 12:25:04 PM with status of Final
== END ==
LOC: HO.CARD 09:39
PROVIDERS: PCP Internal Medicine; Visit Provider Internal Medicine Cardiovascular Disease
DX: I71.20 Thoracic aortic aneurysm, without rupture, unspecified (principal)
CPT/HCPCS: 93306

== ENCOUNTER → 2023-10-24 09:41 | Outpatient (BNV) | payer MEDICARE, SELFPAY | PROVIDERS: PCP Internal Medicine; Visit Provider Internal Medicine | DX: I71.21 Aneurysm of the ascending aorta, without rupture (principal); I36.1 Nonrheumatic tricuspid (valve) insufficiency | CPT/HCPCS: 93306 ==

== ENCOUNTER 2023-12-26 11:13 | Outpatient (AMB) | payer MEDICARE, SELFPAY ==
--- NOTE | 2023-12-26 12:04 | AM.OFFWIN_ITS ---
Intake Vital Signs 12/26/23 12:13 Height 6 ft BP 126/80 Blood Pressure Location Rt brachial Position Sitting Pulse 64 Pulse Source Pulse Oximeter Temp 97.9 F Temp Source Oral Pulse Oximetry (%) 96 Oxygen Delivery Method Room Air Intake Visit Reasons: EP cough light headed shortness breath Intake Note: pt is here for cough and light headed with sob ongoing for 3-4 days Patient Tobacco Use Status: Former Tobacco user Allergies No Known Allergies Allergy (Verified 12/26/23 12:14) Do you need a note to return to daycare/school/sports/work: No HPI HPI Comments History of Present Illness Details Patient is a 73-year-old male complaining of 4 days of lightheadedness, a cough, head congestion and shortness of breath. He states he has coughing fits which is only relieved by an inhaler that he was given the last time he was here at this clinic. He denies any headaches or fevers or head congestion or sinus pain or ear pain or wheezing. He states gets lightheaded sometimes, previous to the illness, it feels like the room is spinning and it is worse when he moves his head quickly to look up at something or when he lays down at night and moves from the left side to the right side. He denies any history of allergies and does not take an allergy pill daily. [facility] Medical History (Updated 12/26/23 @ 12:46 by Johanna Alegria PA-C) History of cardiomyopathy Nocturnal leg cramps Type 2 diabetes mellitus without complication, with no history of insulin use Obesity due to excess calories Diabetes mellitus with hyperglycemia, without long-term current use of insulin HTN (hypertension) CAD (coronary artery disease) Thoracic aortic aneurysm Surgical History H/O cardiac catheterization Family History Father Diabetes mellitus Mother CVD (cardiovascular disease) Myocardial infarction Sister HTN (hypertension) Breast cancer Sister Breast cancer HTN (hypertension) Brother Cancer of pancreas Lung cancer HTN (hypertension) Sister No problems noted. Sister No problems noted. Sister No problems noted. Sister No problems noted. Daughter No problems noted. Daughter No problems noted. Social History Housing: House Patient Tobacco Use Status: Former Tobacco user Tobacco use type: Cigarette Years Smoked: 42 e-Cigarette/Vaping Use: Never Used Second Hand Smoke Exposure: No service: No Current occupational status: retired Cognitive needs: No Hearing needs: No Vision needs: Yes Review of Systems Const All systems reviewed & are unremarkable except as noted in HPI and below Physical Exam Vital Signs: Last Vital Signs Temp 97.9 F 12/26/23 12:13 Pulse 64 12/26/23 12:13 BP 126/80 12/26/23 12:13 Pulse Ox 96 12/26/23 12:13 Oxygen Delivery Method Room Air 12/26/23 12:13 Const General: cooperative, healthy appearing, comfortable and no acute distress Orientation/consciousness: patient oriented x3 Limitations: no limitations HEENT Head: Yes normal to inspection Ears: hearing grossly normal bilaterally, external ears normal and TM's normal bilaterally (Small amount of fluid behind the tympanic membrane - bilaterally) General nose exam: Normal external nose present, Normal nares present and No nasal discharge present Face and sinus: Yes normal facial exam and Yes sinuses nontender Mouth: Normal oral and palatal mucosa present and moist mucous membranes Throat: Yes tonsils normal, Yes uvula midline and Yes posterior oropharynx abnormal (Erythema) Eyes General: appearance normal, both eyes and all related structures Neck Neck: Yes normal visual inspection Resp Effort & Inspection: normal respiratory effort, able to speak in complete sentences, Actively coughing, no respiratory distress, not tachypneic, no tripod positioning and no use of accessory muscles Auscultation: clear to auscultation bilaterally Cardio Rate: regular rate Rhythm: regular rhythm Heart sounds: normal S1 and S2 Skin General skin exam: no rashes or lesions noted Neuro General: patient oriented x3 Extrem General: Yes normal to inspection and Yes no clubbing, cyanosis or edema Assessment & Plan Assessment & Plan (1) URI (upper respiratory infection): Code(s): J06.9 - Acute upper respiratory infection, unspecified Qualifiers: URI type: unspecified viral URI Qualified Code(s): J06.9 - Acute upper respiratory infection, unspecified Plan: We will get chest x-ray, I recommended continuing to use inhaler as needed for cough, advised will prescribe further meds upon reading of chest x-ray Plan See above Orders: Orders XR chest 2V Today R05.9 - Cough, unspecified Coding Level of Care Code Est Pt Level 4 (70821) Diagnoses Viral upper respiratory tract infection J06.9 URI type: unspecified viral URI
[2023-12-26 12:13] VITALS: BP 126/80; PULSE 64; TEMP 36.6; O2SAT 96
== END 2023-12-26 12:43 | disposition home or self-care (01) ==
PROVIDERS: PCP Internal Medicine; Visit Provider Physician Assistant
DX: J06.9 Acute upper respiratory infection, unspecified (principal)
CPT/HCPCS: 99214

== ENCOUNTER 2023-12-26 12:53 | Outpatient (REF) | payer MEDICARE, SELFPAY ==
--- NOTE | ~2023-12-26 | XR_ITS ---
EXAMINATION: XR CHEST CLINICAL INFORMATION: Cough COMPARISON: Chest x-ray on 06/30/2019 TECHNIQUE: 2 views of the chest were obtained. FINDINGS: vascularity. LUNGS: Lungs are clear. No pneumothorax is seen. BONES: Bony skeleton is intact. XR/XR chest 2V IMPRESSION: Unchanged Normal chest x-ray.
== END 2023-12-26 12:54 | disposition home or self-care (01) ==
LOC: HO.HMGCX 12:53
PROVIDERS: PCP Internal Medicine; Visit Provider Physician Assistant
DX: R05.9 Cough, unspecified (principal)
CPT/HCPCS: 71046

== ENCOUNTER 2024-04-03 12:20 | Outpatient (AMB) | payer MEDICARE, SELFPAY ==
[2024-04-03 12:49] VITALS: BP 135/80; PULSE 64; O2SAT 98; BMI 32.4
--- NOTE | 2024-04-03 12:49 | A.OFFPC_ITS ---
Vital Signs 04/03/24 12:49 Height 6 ft Weight 239 lb BMI 32.4 BP 135/80 Blood Pressure Location Rt brachial Position Sitting Pulse 64 Pulse Source Pulse Oximeter Pulse Oximetry (%) 98 Oxygen Delivery Method Room Air Intake Visit Reasons: Annual PE Intake Note: Pt is here today for his PE Allergies No Known Allergies Allergy (Verified 04/03/24 13:40) Medication List - Last Reconciled 04/03/24 by Mary Walker MD albuterol sulfate 90 mcg/actuation 2 puffs inhalation Q6H PRN aspirin (Adult Low Dose Aspirin) 81 mg PO DAILY cholecalciferol (vitamin D3) 25 mcg PO DAILY lisinopril 20 mg PO DAILY magnesium 250 mg PO DAILY metformin 500 mg PO BID 90 days metoprolol succinate ER 100 mg PO DAILY rosuvastatin 20 mg PO BEDTIME Tobacco use date assessed: 04/03/24 Fall risk assessment: No Falls in past year Last assessed Fall Risk: 04/03/24 Dental Screening Dental Screen Date: 04/03/24 Did you have a dental visit in the last 12 months?: Yes Did you have a dental problem in the last 6 months where you did not have access to dental care?: No Was dental information given to patient?: Patient has dentist HPI Annual PE HPI Details 73 year-old male with hypertension, type 2 diabetes mellitus, obesity, coronary artery disease with history of cardiomyopathy and thoracic aortic aneurysm, currently being followed by cardiology, here today for his physical exam [facility] Medical History (Updated 04/04/24 @ 01:01 by Mary Walker MD) History of cardiomyopathy Nocturnal leg cramps Obesity due to excess calories Diabetes mellitus with hyperglycemia, without long-term current use of insulin HTN (hypertension) CAD (coronary artery disease) Thoracic aortic aneurysm Surgical History H/O cardiac catheterization Family History Father Diabetes mellitus Mother CVD (cardiovascular disease) Myocardial infarction Sister HTN (hypertension) Breast cancer Sister Breast cancer HTN (hypertension) Brother Cancer of pancreas Lung cancer HTN (hypertension) Sister No problems noted. Sister No problems noted. Sister No problems noted. Sister No problems noted. Daughter No problems noted. Daughter No problems noted. Social History Housing: House Patient Tobacco Use Status: Former Tobacco user Tobacco use type: Cigarette Years Smoked: 42 e-Cigarette/Vaping Use: Never Used Second Hand Smoke Exposure: No service: No Current occupational status: retired Cognitive needs: No Hearing needs: No Vision needs: Yes Questionnaire PHQ-9 Over the last 2 weeks, how often have you been bothered by any of the following problems? 1. Little interest or pleasure in doing things: not at all 2. Feeling down, depressed, or hopeless: not at all 3. Trouble falling or staying asleep, or sleeping too much: not at all 4. Feeling tired or having little energy: not at all 5. Poor appetite or overeating: not at all 6. Feeling bad about yourself - or that you are a failure or have let yourself or your family down: not at all 7. Trouble concentrating on things, such as reading the newspaper or watching television: not at all 8. Moving or speaking so slowly that other people could have noticed. Or the opposite - being so fidgety or restless that you have been moving around a lot more than usual: not at all 9. Thoughts that you would be better off or of hurting yourself in some way: not at all Total score: 0 Depression Screening Interpretation: Negative Depression Screening Done: Yes 02718 - PHQ-9 Billing: Yes Source: Developed by Drs. Barringtno Morocho, Pat Eli, Moi Morin and colleagues, with an educational natanael from [employer] Thrive Questionnaire Date Thrive assessed: 04/03/24 I am a: Patient What is your living situation today?: I have a steady place to live Within the past 12 months, did the food you bought not last and you didn't have the money to get more?: Never true Within the past 12 months, did you worry whether your food would run out before you got money to buy more?: Never true Do you have trouble paying for medicines?: No Do you have trouble getting transportation to medical appointments?: No Do you have trouble paying your heating and electricity bill?: No Do you have trouble taking care of your child, family member or friend?: No Do you have trouble with day-to-day activities such as bathing, preparing meals, shopping, managing finances, etc.?: No Are you currently unemployed and looking for a job?: No Are you interested in more education?: No Please select the resources that you would like help with: None Currently or been in a relationship where the following occur: No concerns reported THRIVE Score: 0 AUDIT C Alcohol Use Questionnaire (AUDIT-C) 1. How often do you have a drink containing alcohol?: Monthly or less 2. How many drinks containing alcohol do you have on a typical day when you are drinking?: 1 or 2 3. How often do you have six or more drinks on one occasion?: Never Total Score: 1 OLIVIER-7 AMB Questionnaire OLIVIER-7 Date OLIVIER - 7 assessed: 04/03/24 Feeling nervous, anxious, or on edge: 0 = Not at all Not being able to stop or control worryin = Not at all Worrying too much about different things: 0 = Not at all Trouble relaxin = Not at all Being so restless that it is hard to sit still: 0 = Not at all Becoming easily annoyed or irritable: 0 = Not at all Feeling afraid as if something awful might happen: 0 = Not at all Total OLIVIER-7 score (0-4 normal; 5-9 mild; 10-14 moderate; 15-21 severe): 0 Source: Developed by Drs. Barrington Morocho, Pat Eli, Moi Morin and colleagues, with an educational natanael from [employer] OLIVIER-7 Assessment Billing OLIVIER-7 Assessment Tool: OLIVIER-7 Assessment 36835 Review of Systems Const Denies fatigue, Denies fever(s) and Denies weakness Eyes Details: sees Brook Johnson O.D yearly Denies change in vision ENT Reports Normal hearing present Card Denies chest pain, Denies leg edema, Denies lightheadedness, Denies palpitations and Denies dyspnea Resp Denies cough and Denies dyspnea GI Denies abdominal pain, Denies melena, Denies hematochezia, Denies change in stool character and Denies heartburn Denies dysuria, Denies testicular mass, Denies testicular pain, Denies urinary frequency and Denies urinary incontinence Musc Denies abnormal gait, Denies back pain, Denies muscle weakness, Denies numbness, Denies radiating pain into limb and Denies tingling Skin/Breast Denies lesions and Denies rash Neuro Reports Normal hearing present, Denies abnormal gait, Denies numbness, Denies Sensory deficit (Neuro), Denies tingling and Denies weakness Psych Reports no additional complaints Endo Denies fatigue and Denies palpitations Germain/Lymph Reports no additional complaints Aller/Immun Reports no additional complaints Physical exam (Primary Care) Vital Signs: Last Vital Signs Pulse 64 04/03/24 12:49 BP 135/80 04/03/24 12:49 Pulse Ox 98 04/03/24 12:49 Oxygen Delivery Method Room Air 04/03/24 12:49 BMI result Body Mass Index 32.4 Tobacco/Smoking Status: Tobacco use Status Tobacco use date assessed 04/03/24 04/03/24 13:00 Patient Tobacco Use Status Former Tobacco user 04/03/24 12:52 Tobacco use type Cigarette 04/03/24 12:52 e-Cigarette/Vaping Use Never Used 04/03/24 12:52 PHQ-9: PHQ-9 Score PHQ-9: Total score 0 04/03/24 13:47 Depression Screening Interpretation: Negative Thrive Assessment: Date of Thrive Assessment Date Thrive assessed 04/03/24 04/03/24 13:00 Currently or been in a relationship where the following occur: No concerns reported Advance Care Planning discussion: Completed/Scanned Date of discussion: 04/03/24 Who was present: patient Forms completed: Health Care Proxy and MOLST Time spent: 16-45 minutes Actual minutes spent: 16 Const General: comfortable, no acute distress and alert Nutritional Appearance: obese Orientation/consciousness: patient oriented x3 HENMT Ears: external ears normal, TM's normal bilaterally and EAC's normal General nose exam: Normal external nose present and No nasal discharge present Mouth: oropharynx normal and moist mucous membranes Eyes General: appearance normal, both eyes and all related structures Conjunctivae: conjunctivae normal Sclerae: sclerae normal Pupils: Equal, round and reactive pupils present EOM: EOMs intact bilaterally Neck Neck: Yes full ROM, Yes no lymphadenopathy and Yes supple Chest Chest palpation & inspection: normal inspection of the chest Resp Effort & Inspection: normal respiratory effort and able to speak in complete sentences Auscultation: clear to auscultation bilaterally Cardio Rate: regular rate Rhythm: regular rhythm Heart sounds: S1 normal heart sound present and S2 normal heart sound present GI Palpation (GI): Soft to palpation, nontender and no masses Auscultation: normal bowel sounds General: Yes no CVA tenderness Male General Exam: Yes normal external exam Back/Spine/Pelvis Back: no CVA tenderness and No back tenderness Neuro General: patient oriented x3, gait normal, tone normal, moves all extremities, Normal light touch and pain sensation and no focal motor deficits Cranial nerves: Yes Equal, round and reactive pupils present and Yes Normal hearing present Cognition (Neuro): normal cognition Sensory Exam: No Sensory deficit (Neuro) Extrem General: Yes full ROM, Yes no joint enlargement and Yes no clubbing, cyanosis or edema Psych Appearance: grossly normal and well kempt Mental Status: mental status grossly normal Speech and movement: Normal speech and movement present Affect: normal affect Attitude: cooperative Thought content: Normal thought content present Results AMB Hemoglobin A1c AMB Hemoglobin A1c 7.6 % Last Edit by Radha Campos CMA on 04/03/24 13:58 Results Reviewed Results Reviewed: Laboratory Last Values Hgb A1c (Clinic) 7.6 % (4.0-6.0) H 04/03/24 13:58 Coding Level of Care Code Est Pt Prev Care >65y(36301) Diagnoses Annual visit for general adult medical examination with abnormal findings Z00.01 Thoracic aortic aneurysm I71.2 CAD (coronary artery disease) I25.10 Primary hypertension I10 Hypertension type: primary hypertension Class 1 obesity due to excess calories with serious comorbidity and body mass index (BMI) of 32.0 to 32.9 in adult E66.811; E66.09; Z68.32 Body mass index: BMI 32.0-32.9 Obesity classification: adult class 1 (BMI 30 - 34.9) Serious obesity comorbidity presence: with serious comorbidity Type 2 diabetes mellitus without complication, with no history of insulin use E11.9 Nocturnal leg cramps G47.62 Encounter for screening for malignant neoplasm of colon Z12.11 Advanced directives, counseling/discussion Z71.89 Additional Codes OLIVIER-7 Assessment Billing - OLIVIER-7 Assessment Tool: OLIVIER-7 Assessment 84512 ([id number]) Vital Signs *Quality* - Advance Care Planning discussion: Completed/Scanned ([id number]) Vital Signs *Quality* - Time spent: 16-45 minutes ([id number]) Assessment & Plan Assessment & Plan (1) Annual visit for general adult medical examination with abnormal findings: Code(s): Z00.01 - Encounter for general adult medical examination with abnormal findings Plan: Will check appropriate labs. Continued regular dental visit every 6 months and regular yearly eye exams. He is up-to-date with all his vaccinations referred back to Dr. Ozuna for his repeat colonoscopy screening (2) Thoracic aortic aneurysm: Code(s): I71.2 - Thoracic aortic aneurysm, without rupture Category: Medical Plan: Currently followed by cardiology with yearly echocardiogram, last done 11/07/2023 which showed presence of moderately dilated Thoracic aortic aneurysm . No interventions required for the same at this point time. He has been advised to avoid sudden strenuous isometric exercise. Continue aggressive control blood pressure, currently on lisinopril to 20 mg daily and metoprolol. (3) CAD (coronary artery disease): Code(s): I25.10 - Atherosclerotic heart disease of [place] coronary artery without angina pectoris Category: Medical Plan: Continued on aspirin 81 mg daily, and rosuvastatin 20 mg at bedtime (4) HTN (hypertension): Code(s): I10 - Essential (primary) hypertension Category: Medical Qualifiers: Hypertension type: primary hypertension Qualified Code(s): I10 - Essential (primary) hypertension Plan: Goal blood pressure is less than 130/80. Continued on lisinopril metoprolol (5) Obesity due to excess calories: Code(s): E66.09 - Other obesity due to excess calories Category: Medical Qualifiers: Body mass index: BMI 32.0-32.9 Obesity classification: adult class 1 (BMI 30 - 34.9) Serious obesity comorbidity presence: with serious comorbidity Qualified Code(s): E66.811 - Obesity, class 1; E66.09 - Other obesity due to excess calories; Z68.32 - Body mass index [BMI] 32.0-32.9, adult Plan: Recommended focusing on improving health instead of dieting. Mediterranean diet is a healthy diet that helps, limit food high in fat, sugar, and calories. Eat slowly, pay attention to portion sizes, plan your meals ahead of time, start regular physical activity, Keeping a food diary, tracking what you eat and your physical activity can help assess what improvements you can make. There are many health problems associated with being overweight/obese, so it is important to improve your diet and exercise. There are medications and surgical options available, but Lifestyle changes are the 1st step. (6) Type 2 diabetes mellitus without complication, with no history of insulin use: Code(s): E11.9 - Type 2 diabetes mellitus without complications Category: Medical Plan: Hemoglobin A1c today is at 7.6%, higher than last check increase metformin dose in the morning to a 1000 mg with breakfast and then continue with 500 mg at night with supper time, reinforced importance of following a low carb diet and getting regular exercise. See him back for follow-up in 07/2024 (7) Nocturnal leg cramps: Comment: Improved with taking magnesium supplements Code(s): G47.62 - Sleep related leg cramps Category: Medical Plan: Controlled with magnesium tablets (8) Encounter for screening for malignant neoplasm of colon: Code(s): Z12.11 - Encounter for screening for malignant neoplasm of colon Plan: Referred to Dr. Ozuna for his repeat screening colonoscopy (9) Advanced directives, counseling/discussion: Code(s): Z71.89 - Other specified counseling Plan: Initiated the conversation about Advanced Directives. Advanced Directives help patients prepare for current and future decisions about their medical treatment and place of care. Discussed with patient that it is a process where a patients current condition and prognosis are reviewed, their wishes for information regarding their illness are elicited, and likely medical dilemmas are presented and options discussed. Healthcare proxy form and MOLST form completed today. These forms can be amended as needed, reviewed yearly and make changes as needed Orders: Orders Lipid Panel 04/03/24 E11.9 - Type 2 diabetes mellitus without complications, E66.09 - Other obesity due to excess calories, G47.62 - Sleep related leg cramps, I10 - Essential (primary) hypertension, I25.10 - Atherosclerotic heart disease of [place] coronary artery without angina pectoris, I71.2 - Thoracic aortic aneurysm, without rupture Alanine Aminotransferase 04/03/24 E11.9 - Type 2 diabetes mellitus without complications, E66.09 - Other obesity due to excess calories, G47.62 - Sleep related leg cramps, I10 - Essential (primary) hypertension, I25.10 - Atherosclerotic heart disease of [place] coronary artery without angina pectoris, I71.2 - Thoracic aortic aneurysm, without rupture Vitamin D 25-OH Total 04/03/24 E11.9 - Type 2 diabetes mellitus without complications, E66.09 - Other obesity due to excess calories, G47.62 - Sleep related leg cramps, I10 - Essential (primary) hypertension, I25.10 - Atherosclerotic heart disease of [place] coronary artery without angina pectoris, I71.2 - Thoracic aortic aneurysm, without rupture Aspartate Amino Transferase 04/03/24 E11.9 - Type 2 diabetes mellitus without complications, E66.09 - Other obesity due to excess calories, G47.62 - Sleep related leg cramps, I10 - Essential (primary) hypertension, I25.10 - Atherosclerotic heart disease of [place] coronary artery without angina pectoris, I71.2 - Thoracic aortic aneurysm, without rupture Basic Metabolic Panel Fasting 04/03/24 E11.9 - Type 2 diabetes mellitus without complications, E66.09 - Other obesity due to excess calories, G47.62 - Sleep related leg cramps, I10 - Essential (primary) hypertension, I25.10 - Atherosclerotic heart disease of [place] coronary artery without angina pectoris, I71.2 - Thoracic aortic aneurysm, without rupture AMB Hemoglobin A1c 04/03/24 E11.9 - Type 2 diabetes mellitus without complications, E66.09 - Other obesity due to excess calories, G47.62 - Sleep related leg cramps, I10 - Essential (primary) hypertension, I25.10 - Atherosclerotic heart disease of [place] coronary artery without angina pectoris, I71.2 - Thoracic aortic aneurysm, without rupture Referrals Gastroenterology Referral Z12.11 - Encounter for screening for malignant neoplasm of colon
== END 2024-04-03 14:06 | disposition home or self-care (01) ==
PROVIDERS: PCP Internal Medicine; Visit Provider Internal Medicine
DX: Z00.01 Encounter for general adult medical examination with abnormal findings (principal); I71.20 Thoracic aortic aneurysm, without rupture, unspecified; I25.10 Atherosclerotic heart disease of native coronary artery without angina pectoris; I10 Essential (primary) hypertension; E66.811 Obesity, class 1; E66.09 Other obesity due to excess calories; Z68.32 Body mass index [BMI] 32.0-32.9, adult; E11.9 Type 2 diabetes mellitus without complications; G47.62 Sleep related leg cramps; Z12.11 Encounter for screening for malignant neoplasm of colon; Z71.89 Other specified counseling; Z00.00 Encounter for general adult medical examination without abnormal findings

== ENCOUNTER → 2024-04-03 12:20 | Outpatient (BNVA) | payer MEDICARE, SELFPAY | PROVIDERS: PCP Internal Medicine; Visit Provider Internal Medicine | DX: Z00.01 Encounter for general adult medical examination with abnormal findings (principal); I71.20 Thoracic aortic aneurysm, without rupture, unspecified; I25.10 Atherosclerotic heart disease of native coronary artery without angina pectoris; I10 Essential (primary) hypertension; E66.811 Obesity, class 1; Z68.32 Body mass index [BMI] 32.0-32.9, adult; E11.9 Type 2 diabetes mellitus without complications; G47.62 Sleep related leg cramps; Z71.89 Other specified counseling; Z71.3 Dietary counseling and surveillance | CPT/HCPCS: 83036; 96127; 99397; 99497 ==

== ENCOUNTER → 2024-04-23 08:33 | Outpatient (REF) | payer MEDICARE, SELFPAY ==
--- NOTE | 2024-04-23 08:36 | CA_ITS ---
Transthoracic Echocardiogram Patient (Last, First, Middle): Harley Canseco, Gender: Male Date of : 1950 Age: 73 Procedure Date: 04/23/2024 Procedure Type: Transthoracic Echocardiogram Location: OP Height: 182.88 cm Weight: 108.41 kg BSA: 2.30 m2 Heart Rate: 60 bpm BP: 148 / 82 mmHg Cnc Cutting Operator: AGATA Referring MD: Kb Ariza MD Symptoms: I71.2 - Thoracic aortic aneurysm, without rupture Study Quality: Fair. Limited by order ECG Rhythm: Sinus Conclusions: - Moderately dilated ascending aorta at 4.7 cm Findings Great Vessels There is moderate dilatation of the ascending aorta measuring 4.70 cm. Prior Study Comparison No significant change compared to prior study dated: 10/24/2023. Measurements 2D Linear Measurements LVOT Diam: 2.40 3.0+(-)1.3 cm Mitral Valve MV Pk E: 0.49 MV PK A: 0.66 MV Decel Time: 387.00 E/A: 0.80 E'Lateral: 8.38 E'Medial: 4.57 E/E' Med: 10.80 E/E' Lat: 5.90 PHT: 113.00 MVA PHT: 1.95 Decel [place]: 1.27 LVOT LVOT Pk Walter: 0.83 LVOT Mn Walter: 0.58 LVOT VTI: 0.21 LVOT Pk Grad: 3.00 LVOT Mn Grad: 2.00 LVOT Diam: 2.40 LVOT Area: 4.52 Diastolic Function MV Pk E: 0.49 MV Pk A: 0.66 E/A: 0.80 E'Medial: 4.57 E/E' Med: 10.80 E' Laterial: 8.38 E/E' Lat: 5.90 Great Vessels Aorta Sinus of Valsalva: 4.50 2.0-3.5 cm Ao Asc: 4.70 2.1-3.4 cm Ao Arch: 3.70 Updated in Other Vendor System with Status of Final Kb Ariza MD electronically signed on 04/24/2024 8:37:28 AM with status of Final
== END ==
LOC: HO.CARD 08:33
PROVIDERS: PCP Internal Medicine; Visit Provider Internal Medicine Cardiovascular Disease
DX: I71.20 Thoracic aortic aneurysm, without rupture, unspecified (principal)
CPT/HCPCS: 93308

== ENCOUNTER → 2024-04-23 08:36 | Outpatient (BNV) | payer MEDICARE, SELFPAY | PROVIDERS: PCP Internal Medicine; Visit Provider Internal Medicine Cardiovascular Disease | DX: I71.21 Aneurysm of the ascending aorta, without rupture (principal) | CPT/HCPCS: 93308 ==

== ENCOUNTER 2024-04-23 10:24 | Outpatient (REF) | payer MEDICARE, SELFPAY ==
[2024-04-23 14:18] LABS: Alanine Aminotransferase 30 U/L (0-40); Anion Gap 10 (12-20); Aspartate Amino Transferase 27 U/L (5-37); Blood Urea Nitrogen 12 mg/dL (9-16); Calcium 9.4 mg/dL (8.4-10.2); Carbon Dioxide 29 mmol/L (22-29); Chloride 106 mmol/L (96-108); Cholesterol 123 mg/dL (<200); Estimated Glomerular Filt Rate > 60; Glucose Fasting 172 mg/dL (60-99); HDL Cholesterol 50 mg/dL (>40); LDL Cholesterol Calculated 58 mg/dL (<100); Potassium 4.8 mmol/L (3.3-5.1); Sodium 140 mmol/L (135-145); Triglycerides 77 mg/dL (<150)
[2024-04-23 14:23] LABS: Vitamin D 25-OH Total 48.7 ng/mL (>30)
== END 2024-04-23 10:25 | disposition home or self-care (01) ==
LOC: HO.HMGCLDS 10:24
PROVIDERS: PCP Internal Medicine; Visit Provider Internal Medicine
DX: I10 Essential (primary) hypertension (principal); E11.9 Type 2 diabetes mellitus without complications; I25.10 Atherosclerotic heart disease of native coronary artery without angina pectoris; G47.62 Sleep related leg cramps; E66.09 Other obesity due to excess calories; I71.20 Thoracic aortic aneurysm, without rupture, unspecified
CPT/HCPCS: 36415; 80048; 80061; 82306; 84450; 84460

== ENCOUNTER 2024-08-04 07:45 | Outpatient (REF) | payer MEDICARE, SELFPAY ==
--- OUTSIDE RECORDS SUMMARY | 2024-08-04 07:48 | XMS_ITS ---
Author Organization [facility] Address [address] [place] [phone] Care Team Providers Care Employment Assistant Name Role Phone Denise GRIMES, Mary Primary Care Provider Ander Mejía Jr Unavailable ALLERGIES No Known Allergies REASON FOR VISIT The patient is seen today for consultation MEDICATIONS Medication SIG (Take, Route, Frequency, Duration) Notes Start Date End Date Status MiraLax (colon prep) 8.3 ounce ((238) grams mixed with Gatorade or Crystal Light orally begin at 5:00 p.m. the day before the procedure for 1 day 07/26/2024 Active Rosuvastatin Calcium 20 MG TAKE ONE TABL ET BY MOUTH EVERY EVENING AT BEDTIME Oral for 90 Active Metoprolol Succinate ER 100 MG TAKE ONE TABLET BY MOUTH EVERY DAY Oral for 90 Active metFORMIN HCl 500 MG TAKE ONE TABLET BY MOUTH TWICE A DAY; TAKE WITH SUPPER Oral for 90 Active Lisinopril 20 MG TAKE ONE TABLET BY M OUTH EVERY DAY Oral for 90 Active Vitamin D-3 25 MCG (1000 UT) 1 capsule Orally Once a day for 30 day(s) Active Magnesium 300 MG 1 capsule with a gerson l Orally Once a day for 30 day(s) Active Aspir-81 81mg Active PROBLEMS Problem Type ICD Code Onset Dates Problem Status W/U Status Risk SNOMED Code Notes Problem Gastroesophageal reflux disease, unspecified whether esophagitis present (K21.9) Active confirmed 221205178 Problem Gastric intestinal metaplasia (K31.A0) Active confirmed 60072242 Problem Colon cancer screening (Z12.11) Active confirmed 062002022 VITAL SIGNS BMI 32.09 kg/m2 07/26/2024 Blood pressure systolic 000 mm Hg 07/26/19 25 Blood pressure diastolic 00 mm Hg 025 Height 71.75 in 07/26/2024 Temperature 97.7 degrees Fahrenheit 07/26/19 25 Weight 235 lbs 07/26/2024 Encounters Encounter Location Date Provider Diagnosis [facility] [address] [place] [address] 07/26/2024 Ander Ozuna Jr Gastroesophageal reflux disease, unspecified whether esophagitis present K21.9 ; Gastric intestinal metaplasia K31.A0 and Colon cancer screening Z12.11 ASSESSMENTS Encounter Date Diagnosis Assessment Notes Treatment Notes Treatment Clinical Notes 07/26/2024 Gastroesophageal ref lux disease, unspecified whether esophagitis present (ICD-10 - K21.9) Endoscopy material was printed 07/26/2024 Gastric intestinal metaplasia (ICD-10 - K31.A0) 07/26/2024 Colon cancer screeni ng (ICD-10 - Z12.11) PLAN OF TREATMENT Medication Medication Name Sig Start Date Stop Date Notes MiraLax (colon prep) 8.3 oun ce ((238) grams mixed with Gatorade or Crystal Light orally begin at 5:00 p.m. the day before the procedure for 1 day 07/26/2024 Treatment Notes Assessment Notes Gastroesophageal reflux dise ase, unspecified whether esophagitis present Endoscopy material was printed Future Test Test Name Order Date UPPER GI ENDOSCOPY 07/26/2024 COLONOSCOPY 07/26/2024 Next Appt Details Follow Up: 1 Year, Reason: Provider Name:Ander santiago Jr, 10/09/2024 08:30:00 AM, [address] [place] [address] , [place], [place], [phone], Progress Notes * Examination Category Sub-Category Detail Notes General Examination GENERAL APPEARANCE: in no ac hamzah distress HEAD: normocephalic EYES: sclera non-icteric NECK/THYROID: no lymphadenopathy HEART: S1, S2 normal, no mu rmurs CHEST: normal shape and exp ansion LUNGS: clear to auscultatio n bilaterally ABDOMEN: soft, nontender, non distended, bowel sounds present, no organomegaly SKIN: anicteric EXTREMITIES: no clubbing, cyanosi s, or edema PSYCH: cognitive function i ntact ORAL CAVITY: mucosa moist
--- OUTSIDE RECORDS SUMMARY | 2024-08-04 07:49 | XMS_ITS | Patient Health Record ---
Author Organization [facility] Address [address] [place] [phone] Care Team Providers Care Merchandise Shopper Name Role Phone Densie GRIMES, Mary Primary Care Provider Ander Mejía Jr Unavailable ALLERGIES No Known Allergies REASON FOR REFERRAL No Information MEDICATIONS Medication SIG (Take, Route, Frequency, Duration) Notes Start Date End Date Status Vitamin D-3 25 MCG (1000 UT) 1 capsule Orally Once a day for 30 day(s) Active Magnesium 300 MG 1 capsule with a gerson l Orally Once a day for 30 day(s) Active MiraLax (colon prep) 8.3 ounce ((238) grams mixed with Gatorade or Crystal Light orally begin at 5:00 p.m. the day before the procedure for 1 day 07/26/2024 Active Rosuvastatin Calcium 20 MG TAKE ONE TABL ET BY MOUTH EVERY EVENING AT BEDTIME Oral for 90 Active Aspir-81 81mg Active Metoprolol Succinate ER 100 MG TAKE ONE TABLET BY MOUTH EVERY DAY Oral for 90 Active metFORMIN HCl 500 MG TAKE ONE TABLET BY MOUTH TWICE A DAY; TAKE WITH SUPPER Oral for 90 Active Lisinopril 20 MG TAKE ONE TABLET BY M OUTH EVERY DAY Oral for 90 Active IMMUNIZATIONS Vaccine Route Administration Date Status Comme nts Influenza Unknown 04/10/2024 Administered SOCIAL HISTORY Sex Assigned At : Social History Observation Description Sex Assigned At Unknown PROBLEMS Problem Type ICD Code Onset Dates Problem Status W/U Status Risk SNOMED Code Notes Problem Esophageal reflux (530.81) Active confirmed Esophageal reflux (001523624) Problem Gastroesophageal reflux disease, unspecified whether esophagitis present (K21.9) Active confirmed 943240664 Problem Gastric intestinal metaplasia (K31.A0) Active confirmed 23866921 Problem Colon cancer screening (Z12.11) Active confirmed 727700925 VITAL SIGNS Temperature 97.7 degrees Fahrenheit 07/26/2024 Blood pressure diastolic 00 mm Hg 07/26/2024 Height 71.75 in 07/26/2024 Blood pressure systolic 000 mm Hg 07/26/2024 Weight 235 lbs 07/26/2024 BMI 32.09 kg/m2 07/26/2024 Encounters Encounter Location Date Provider Diagnosis [facility] [address] [place] [phone] 07/26/2024 Ander Ozuna Jr Gastroesophageal reflux disease, unspecified whether esophagitis present K21.9 ; Gastric intestinal metaplasia K31.A0 and Colon cancer screening Z12.11 [facility] [address] [place] [phone] 07/25/2024 Ander Ozuna Jr ASSESSMENTS Encounter Date Diagnosis Assessment Notes Treatment Notes Treatment Clinical Notes 07/26/2024 Gastroesophageal ref lux disease, unspecified whether esophagitis present (ICD-10 - K21.9) Endoscopy material was printed 07/26/2024 Gastric intestinal metaplasia (ICD-10 - K31.A0) 07/26/2024 Colon cancer screeni ng (ICD-10 - Z12.11) PLAN OF TREATMENT Future Test Test Name Order Date COLONOSCOPY 05/24/2012 UPPER GI ENDOSCOPY 09/26/2013 UPPER GI ENDOSCOPY 07/26/2024 COLONOSCOPY 07/26/2024 Next Appt Details Provider Name:Ander santiago Jr, 10/09/2024 08:30:00 AM, [address] [place] [address] , [place], [place], [phone], Insurance Providers Payer Name Payer Address Payer Phone Subscriber Number Group Number Insured Name Patient Relationship to Insured Coverage Start Date Coverage End Date [facility] [address] [place] [address] [id number] AYDE PAULINO Self - patient is the insured MEDICAL (GENERAL) HISTORY Medical History History ICD Code Diabetes mellitus type 2 Hypertension Hyperlipidemia Thoracic aortic aneurysm, 4.7 cm 05/13 Coronary artery disease Surgical History Surgery Date(Month/Year) Cardiac catheterization
[2024-08-04 11:33] LABS: Estimated Average Glucose 174 mg/dL; Hemoglobin A1C 214.8753 umol/L; Hemoglobin A1c % 7.7 % (<6.0); Total Hemoglobin (HGBA1C) 3550.0564 umol/L
[2024-08-04 11:42] LABS: Alanine Aminotransferase 26 U/L (0-40); Anion Gap 12 (12-20); Aspartate Amino Transferase 30 U/L (5-37); Blood Urea Nitrogen 13 mg/dL (9-16); Calcium 9.2 mg/dL (8.4-10.2); Carbon Dioxide 27 mmol/L (22-29); Chloride 106 mmol/L (96-108); Cholesterol 111 mg/dL (<200); Estimated Glomerular Filt Rate > 60; Glucose Fasting 195 mg/dL (60-99); HDL Cholesterol 45 mg/dL (>40); LDL Cholesterol Calculated 48 mg/dL (<100); Potassium 4.3 mmol/L (3.3-5.1); Sodium 141 mmol/L (135-145); Triglycerides 93 mg/dL (<150)
[2024-08-04 11:59] LABS: Vitamin D 25-OH Total 52.1 ng/mL (>30)
[2024-08-04 11:59] LABS: Creatinine Urine 109.52 mg/dL; Microalbum/Creatinine Ratio Ur 8.2 ug/mg cr (<30)
== END 2024-08-04 07:46 | disposition home or self-care (01) ==
LOC: HO.HMGCLDS 07:45
PROVIDERS: PCP Internal Medicine; Visit Provider Internal Medicine
DX: E11.9 Type 2 diabetes mellitus without complications (principal); E66.811 Obesity, class 1; E66.09 Other obesity due to excess calories; I10 Essential (primary) hypertension; Z68.32 Body mass index [BMI] 32.0-32.9, adult; I25.10 Atherosclerotic heart disease of native coronary artery without angina pectoris; I71.20 Thoracic aortic aneurysm, without rupture, unspecified
CPT/HCPCS: 36415; 80048; 80061; 82043; 82306; 82570; 83036; 84450; 84460

== ENCOUNTER 2024-08-06 11:23 | Outpatient (AMB) | payer MEDICARE, SELFPAY ==
--- OUTSIDE RECORDS SUMMARY | 2024-08-06 11:26 | XMS_ITS | Patient Health Record ---
Author Organization [facility] Address [address] [place] [phone] Care Team Providers Care Site Engineer Name Role Phone Denise GRIMES, Mary Primary [...] Esophageal reflux (530.81) Active confirmed Esophageal reflux (895299840) Problem Gastroesophageal reflux disease, unspecified whether esophagitis present (K21.9) Active confirmed 210649862 Problem Gastric intestinal metaplasia (K31.A0) Active confirmed 81941067 Problem Colon cancer screening (Z12.11) Active confirmed 912479503 VITAL SIGNS Temperature 97.7 degrees Fahrenheit 07/26/2024 Blood pressure diastolic 00 mm Hg 07/26/2024 Height 71.75 in 07/26/2024 Blood pressure systolic 000 mm Hg 07/26/2024 Weight 235 lbs 07/26/2024 BMI 32.09 kg/m2 07/26/2024 Encounters Encounter Location Date Provider Diagnosis [facility] [address] [place] [phone] 07/26/2024 Ander Ozuna Jr Gastroesophageal reflux disease, unspecified whether esophagitis present K21.9 ; Gastric intestinal metaplasia K31.A0 and Colon cancer screening Z12.11 [facility] [address] [place] [phone] 07/25/2024 Ander Ozuna Jr ASSESSMENTS Encounter Date [...] Provider Name:Ander santiago Jr, 10/09/2024 08:30:00 AM, [address] [place] [address] , [place], [place], [phone], Insurance Providers Payer Name Payer Address Payer Phone Subscriber Number Group Number Insured Name Patient Relationship to Insured Coverage Start Date Coverage End Date [facility] [address] [place] [address] [id number] AYDE PAULINO Self - patient is the insured MEDICAL (GENERAL) HISTORY Medical History History ICD Code Diabetes mellitus type 2 Hypertension Hyperlipidemia Thoracic aortic aneurysm, 4.7 cm 05/13 Coronary artery disease Surgical History Surgery Date(Month/Year) Cardiac catheterization
--- OUTSIDE RECORDS SUMMARY | 2024-08-06 11:26 | XMS_ITS ---
Author Organization [facility] Address [address] [place] [phone] Care Team Providers Care Security Clerk Name Role Phone Denise GRIMES, Mary Primary Care Provider Ander Mejía Jr Unavailable [phone] ALLERGIES No Known Allergies REASON FOR VISIT [...] unspecified whether esophagitis present (K21.9) Active confirmed 364132436 Problem Gastric intestinal metaplasia (K31.A0) Active confirmed 37791823 Problem Colon cancer screening (Z12.11) Active confirmed 533146261 VITAL SIGNS BMI 32.09 kg/m2 07/26/2024 Blood pressure systolic 000 mm Hg 07/26/19 25 Blood pressure diastolic 00 mm Hg 025 Height 71.75 in 07/26/2024 Temperature 97.7 degrees Fahrenheit 07/26/19 25 Weight 235 lbs 07/26/2024 Encounters Encounter Location Date Provider Diagnosis [facility] [address] [place] [address] 07/26/2024 Ander Ozuna Jr Gastroesophageal reflux disease, [...] Provider Name:Ander santiago Jr, 10/09/2024 08:30:00 AM, [address] [place] [address] , [place], [place], [phone], Progress Notes * Examination Category Sub-Category Detail [...]
--- OUTSIDE RECORDS SUMMARY | 2024-08-06 11:26 | XMS_ITS ---
Author Organization [facility] Address [address] [place] [phone] Care Team Providers Care Board Lining Machine Operator Name Role Phone Mary Walker MD Primary Care Provider Sara Ozuna Jr, Ander Glez REASON FOR VISIT NEW INSURANCE Encounters Encounter Location Date Provider Diagnosis [facility] [address] [place] [phone] 07/25/2024 Ander Ozuna Jr PLAN OF TREATMENT Next Appt Details Provider Name:Ander santiago Jr, 10/09/2024 08:30:00 AM, [address] [place] [address] , [place], [place], [phone],
[2024-08-06 11:35] VITALS: BP 112/70; PULSE 63; RESP 16; TEMP 36.9; O2SAT 98; BMI 31.2
--- NOTE | 2024-08-06 11:35 | MHC.PC.OV ---
Vital Signs 08/06/24 11:35 Height 6 ft Weight 230 lb BMI 31.2 BP 112/70 Blood Pressure Location Rt brachial Position Sitting Respiration 16 Pulse 63 Pulse Source Pulse Oximeter Temp 98.4 F Temp Source Oral Pulse Oximetry (%) 98 Oxygen Delivery Method Room Air Intake Visit Reasons: 4 months f/up Intake Note: Pt is here today for his 4mo. f/u Allergies No Known Allergies Allergy (Verified 08/06/24 11:48) Medication List - Last Reconciled 08/06/24 by Mary Walker MD albuterol sulfate 90 mcg/actuation 2 puffs inhalation Q6H PRN aspirin (Adult Low Dose Aspirin) 81 mg PO DAILY cholecalciferol (vitamin D3) 25 mcg PO DAILY lisinopril 20 mg PO DAILY magnesium 250 mg PO DAILY metformin 500 mg PO BID 90 days metoprolol succinate ER 100 mg PO DAILY rosuvastatin 20 mg PO BEDTIME Tobacco use date assessed: 08/06/24 Fall risk assessment: No Falls in past year Last assessed Fall Risk: 08/06/24 Dental Screening Dental Screen Date: 08/06/24 Did you have a dental visit in the last 12 months?: Yes Did you have a dental problem in the last 6 months where you did not have access to dental care?: No Was dental information given to patient?: Patient has dentist HPI 4 months f/up HPI Details 3-year-old male with history of type 2 diabetes mellitus, hypertension, dyslipidemia, here today for his follow-up. He has been feeling well, with no complaints at present time. Patient admits however that his diet has not been the best to this past few months and has not been exercising as much. Hemoglobin A1c is elevated up to 7.7% on last check, but fasting lipids, electrolytes renal function, liver enzymes are all within normal limits. [facility] Medical History (Updated 08/06/24 @ 23:38 by Mary Walker MD) Diabetes mellitus with hyperglycemia, without long-term current use of insulin History of cardiomyopathy Nocturnal leg cramps Obesity due to excess calories HTN (hypertension) CAD (coronary artery disease) Thoracic aortic aneurysm Surgical History H/O cardiac catheterization Family History Father Diabetes mellitus Mother CVD (cardiovascular disease) Myocardial infarction Sister HTN (hypertension) Breast cancer Sister Breast cancer HTN (hypertension) Brother Cancer of pancreas Lung cancer HTN (hypertension) Sister No problems noted. Sister No problems noted. Sister No problems noted. Sister No problems noted. Daughter No problems noted. Daughter No problems noted. Social History Housing: House Patient Tobacco Use Status: Former Tobacco user Tobacco use type: Cigarette Years Smoked: 42 e-Cigarette/Vaping Use: Never Used Second Hand Smoke Exposure: No service: No Current occupational status: retired Cognitive needs: No Hearing needs: No Vision needs: Yes Questionnaire PHQ-9 Over the last 2 weeks, how often have you been bothered by any of the following problems? 1. Little interest or pleasure in doing things: not at all 2. Feeling down, depressed, or hopeless: not at all 3. Trouble falling or staying asleep, or sleeping too much: not at all 4. Feeling tired or having little energy: not at all 5. Poor appetite or overeating: not at all 6. Feeling bad about yourself - or that you are a failure or have let yourself or your family down: not at all 7. Trouble concentrating on things, such as reading the newspaper or watching television: not at all 8. Moving or speaking so slowly that other people could have noticed. Or the opposite - being so fidgety or restless that you have been moving around a lot more than usual: not at all 9. Thoughts that you would be better off or of hurting yourself in some way: not at all Total score: 0 Depression Screening Interpretation: Negative Depression Screening Done: Yes 88784 - PHQ-9 Billing: Yes Source: Developed by Drs. Barrington Morocho, Pat Eli, Moi Morin and colleagues, with an educational natanael from [employer]. Thrive Questionnaire Date Thrive assessed: 08/04/24 I am a: Patient What is your living situation today?: I have a steady place to live Within the past 12 months, did the food you bought not last and you didn't have the money to get more?: Never true Within the past 12 months, did you worry whether your food would run out before you got money to buy more?: Never true Do you have trouble paying for medicines?: No Do you have trouble getting transportation to medical appointments?: No Do you have trouble paying your heating and electricity bill?: No Do you have trouble taking care of your child, family member or friend?: No Do you have trouble with day-to-day activities such as bathing, preparing meals, shopping, managing finances, etc.?: No Are you currently unemployed and looking for a job?: No Are you interested in more education?: No Please select the resources that you would like help with: None Currently or been in a relationship where the following occur: No concerns reported THRIVE Score: 0 AUDIT C Alcohol Use Questionnaire (AUDIT-C) 1. How often do you have a drink containing alcohol?: Monthly or less 2. How many drinks containing alcohol do you have on a typical day when you are drinking?: 1 or 2 3. How often do you have six or more drinks on one occasion?: Never Total Score: 1 OLIVIER-7 AMB Questionnaire OLIVIER-7 Date OLIVIER - 7 assessed: 08/06/24 Feeling nervous, anxious, or on edge: 0 = Not at all Not being able to stop or control worryin = Not at all Worrying too much about different things: 0 = Not at all Trouble relaxin = Not at all Being so restless that it is hard to sit still: 0 = Not at all Becoming easily annoyed or irritable: 0 = Not at all Feeling afraid as if something awful might happen: 0 = Not at all Total OLIVIER-7 score (0-4 normal; 5-9 mild; 10-14 moderate; 15-21 severe): 0 Source: Developed by Drs. Barrington Morocho, Pat Eli, Moi Morin and colleagues, with an educational natanael from [employer]. OLIVIER-7 Assessment Billing OLIVIER-7 Assessment Tool: OLIVIER-7 Assessment 37595 Review of Systems Const Denies fatigue, Denies fever(s) and Denies weakness Eyes Details: sees Brook Johnson O.Jose yearly Denies change in vision ENT Reports Normal hearing present Card Denies chest pain, Denies leg edema, Denies lightheadedness, Denies palpitations and Denies dyspnea Resp Denies cough and Denies dyspnea GI Denies abdominal pain, Denies melena, Denies hematochezia, Denies change in stool character and Denies heartburn Denies dysuria, Denies testicular mass, Denies testicular pain, Denies urinary frequency and Denies urinary incontinence Musc Denies abnormal gait, Denies back pain, Denies muscle weakness, Denies numbness, Denies radiating pain into limb and Denies tingling Skin/Breast Denies lesions and Denies rash Neuro Reports Normal hearing present, Denies abnormal gait, Denies numbness, Denies Sensory deficit (Neuro), Denies tingling and Denies weakness Psych Reports no additional complaints Endo Denies fatigue and Denies palpitations Germain/Lymph Reports no additional complaints Aller/Immun Reports no additional complaints Physical exam (Primary Care) Vital Signs: Last Vital Signs Temp 98.4 F 08/06/24 11:35 Pulse 63 08/06/24 11:35 Resp 16 08/06/24 11:35 BP 112/70 08/06/24 11:35 Pulse Ox 98 08/06/24 11:35 Oxygen Delivery Method Room Air 08/06/24 11:35 BMI result Body Mass Index 31.2 Tobacco/Smoking Status: Tobacco use Status Tobacco use date assessed 08/06/24 08/06/24 11:42 Patient Tobacco Use Status Former Tobacco user 08/06/24 11:42 Tobacco use type Cigarette 08/06/24 11:42 e-Cigarette/Vaping Use Never Used 08/06/24 11:42 PHQ-9: PHQ-9 Score PHQ-9: Total score 0 08/06/24 12:11 Depression Screening Interpretation: Negative Thrive Assessment: Date of Thrive Assessment Date Thrive assessed 08/04/24 08/06/24 11:42 Currently or been in a relationship where the following occur: No concerns reported Const General: comfortable, no acute distress and alert Nutritional Appearance: obese Orientation/consciousness: patient oriented x3 HENMT Ears: external ears normal General nose exam: Normal external nose present and No nasal discharge present Mouth: oropharynx normal and moist mucous membranes Eyes General: appearance normal, both eyes and all related structures Conjunctivae: conjunctivae normal Sclerae: sclerae normal Pupils: Equal, round and reactive pupils present EOM: EOMs intact bilaterally Neck Neck: Yes full ROM, Yes no lymphadenopathy and Yes supple Chest Chest palpation & inspection: normal inspection of the chest Resp Effort & Inspection: normal respiratory effort and able to speak in complete sentences Auscultation: clear to auscultation bilaterally Cardio Rate: regular rate Rhythm: regular rhythm Heart sounds: S1 normal heart sound present and S2 normal heart sound present GI Palpation (GI): Soft to palpation, nontender and no masses Auscultation: normal bowel sounds General: Yes no CVA tenderness Male General Exam: Yes normal external exam Back/Spine/Pelvis Back: no CVA tenderness and No back tenderness Neuro General: patient oriented x3, gait normal, tone normal, moves all extremities, Normal light touch and pain sensation and no focal motor deficits Cranial nerves: Yes Equal, round and reactive pupils present and Yes Normal hearing present Cognition (Neuro): normal cognition Sensory Exam: No Sensory deficit (Neuro) Extrem General: Yes full ROM, Yes no joint enlargement and Yes no clubbing, cyanosis or edema Psych Appearance: grossly normal and well kempt Mental Status: mental status grossly normal Speech and movement: Normal speech and movement present Affect: normal affect Attitude: cooperative Thought content: Normal thought content present Results Reviewed Results Reviewed: Name: Harley Canseco Age/Sex: 73/M : 1950 Unit#: [id number] Attend Dr: Mary Walker MD Re08/04/24 Status: DEP REF Location: [facility] Disch: SPEC : [id number] BHUMIKA: 08/04/24 STATUS: COMP REQ : [id number] RECD: 08/04/24-[address]: Mary Walker MD COMP: 08/04/24-1159 ENTERED: 08/04/24-[address]: ORDERED: Met Prof Fast, AST, ALT, Lipid Panel, Vitamin D 25-OH Test Result Flag Reference Sodium 141 135-145 mmol/L Potassium 4.3 3.3-5.1 mmol/L CL 106 96-108 mmol/L CO2 27 22-29 mmol/L Gap 12 12-20 BUN 13 9-16 mg/dL Creat 0.93 0.5-1.4 mg/dL eGFR > 60 Chronic Kidney Disease: Estimated GFR < 60 mL/min/1.73m2 Severe Kidney Disease: Estimated GFR < 15 mL/min/1.73m2 FBS 195 H 60-99 mg/dL A fasting glucose of 126 mg/dl or greater on more than one occasion is considered diagnostic of diabetes. CA 9.2 8.4-10.2 mg/dL AST (GOT) 30 5-37 U/L ALT (GPT) 26 0-40 U/L Triglyceride 93 <150 mg/dL Desirable Triglyceride: less than 150 mg/dL Borderline High Triglyceride 150-199 mg/dL High Triglyceride: 200-499 mg/dL Very High Triglyceride: greater than or equal to 5OO mg/dL Cholesterol 111 <200 mg/dL Desirable Cholesterol: less than 200 mg/dL Borderline High Cholesterol: 200-239 mg/dL High Cholesterol: greater than 239 mg/dL LDL Calculated 48 <100 mg/dL Desirable LDL: less than 100 mg/dL Near Optimal/Above Optimal LDL: 110-129 mg/dL Borderline High LDL: 130-159 mg/dL High LDL: 160-189 mg/dL Very High LDL: greater than or equal to 190 mg/dL HDL 45 >40 mg/dL Desirable HDL: greater than 40 mg/dL Note: This HDL assay may give artificially low results in patients with liver disease. Vit D 25-OH Tot 52.1 >30 ng/mL Health Based Reference Values* < 20 ng/mL Deficient 20-30 ng/mL Insufficient > 30 ng/mL Sufficient Laboratory Tests 04/03/24 08/04/24 13:58 07:58 Estimat Average Glucose 174 Hgb A1c (Clinic) 7.6 H Hemoglobin A1c % 7.7 H Urine Creatinine 109.52 Urine Microalbumin 9.0 Microalb/Creat Ratio 8.2 Coding Level of Care Code Est Pt Level 4 (38434) Diagnoses Primary hypertension I10 Hypertension type: primary hypertension Class 1 obesity due to excess calories with serious comorbidity and body mass index (BMI) of 32.0 to 32.9 in adult E66.811; E66.09; Z68.32 Body mass index: BMI 32.0-32.9 Obesity classification: adult class 1 (BMI 30 - 34.9) Serious obesity comorbidity presence: with serious comorbidity Nocturnal leg cramps G47.62 Diabetes mellitus with hyperglycemia, without long-term current use of insulin E11.65 Additional Codes PHQ-9 - 28568 - PHQ-9 Billing: Yes ([id number]) OLIVIER-7 Assessment Billing - OLIVIER-7 Assessment Tool: OLIVIER-7 Assessment 38421 ([id number]) Assessment & Plan Assessment & Plan (1) HTN (hypertension): Code(s): I10 - Essential (primary) hypertension Category: Medical Qualifiers: Hypertension type: primary hypertension Qualified Code(s): I10 - Essential (primary) hypertension Plan: Blood pressure at goal of less than 130/80. Continue lisinopril 20 mg daily and metoprolol succinate ER 100 mg once a day.. Reinforced importance of following a low sodium diet, getting regular exercise, and lowering stress levels. (2) Obesity due to excess calories: Code(s): E66.09 - Other obesity due to excess calories Category: Medical Qualifiers: Body mass index: BMI 32.0-32.9 Obesity classification: adult class 1 (BMI 30 - 34.9) Serious obesity comorbidity presence: with serious comorbidity Qualified Code(s): E66.811 - Obesity, class 1; E66.09 - Other obesity due to excess calories; Z68.32 - Body mass index [BMI] 32.0-32.9, adult Plan: Discussed need to increase activity and weight reduction. Mediterranean diet is a healthy diet that helps, limit food high in fat, sugar, and calories. Eat slowly, pay attention to portion sizes, plan your meals ahead of time, start regular physical activity, at least 150 minutes of moderate intensity exercise, or 90 minutes per week of vigorous exercise. Keeping a food diary, tracking what you eat and your physical activity can help assess what improvements you can make. There are many health problems associated with being overweight/obese, so it is important to improve your diet and exercise. There are medications and surgical options available, but Lifestyle changes are the 1st step. (3) Nocturnal leg cramps: Comment: Improved with taking magnesium supplements Code(s): G47.62 - Sleep related leg cramps Category: Medical Plan: Continue magnesium supplements (4) Diabetes mellitus with hyperglycemia, without long-term current use of insulin: Code(s): E11.65 - Type 2 diabetes mellitus with hyperglycemia Category: Medical Plan: Hemoglobin A1c now is at 7.7%, will increase metformin dose to a 1000 mg in the morning with breakfast and 500 mg at night with supper, refill sent to his pharmacy. Stressed importance of following the recommended diabetic diet and stay active, get regular exercise. Orders: Orders Basic Metabolic Panel Fasting 10/18/24 E66.09 - Other obesity due to excess calories, E66.811 - Obesity, class 1, G47.62 - Sleep related leg cramps, I10 - Essential (primary) hypertension, Z68.32 - Body mass index [BMI] 32.0-32.9, adult Hemoglobin A1c 10/18/24 E66.09 - Other obesity due to excess calories, E66.811 - Obesity, class 1, G47.62 - Sleep related leg cramps, I10 - Essential (primary) hypertension, Z68.32 - Body mass index [BMI] 32.0-32.9, adult Aspartate Amino Transferase 10/18/24 E66.09 - Other obesity due to excess calories, E66.811 - Obesity, class 1, G47.62 - Sleep related leg cramps, I10 - Essential (primary) hypertension, Z68.32 - Body mass index [BMI] 32.0-32.9, adult Alanine Aminotransferase 10/18/24 E66.09 - Other obesity due to excess calories, E66.811 - Obesity, class 1, G47.62 - Sleep related leg cramps, I10 - Essential (primary) hypertension, Z68.32 - Body mass index [BMI] 32.0-32.9, adult Medications: Changed From metformin take metformin with supper 500 mg PO BID 90 days 180 tabs 1RF E11.65 - Type 2 diabetes mellitus with hyperglycemia To metformin Take 2 tablets or a 1000 mg in the morning with breakfast and 500 mg or 1 tablet at night with supper 270 tabs 1RF 90 days E11.65 - Type 2 diabetes mellitus with hyperglycemia
== END 2024-08-06 12:14 | disposition home or self-care (01) ==
PROVIDERS: PCP Internal Medicine; Visit Provider Internal Medicine
DX: I10 Essential (primary) hypertension (principal); E66.811 Obesity, class 1; E66.09 Other obesity due to excess calories; Z68.32 Body mass index [BMI] 32.0-32.9, adult; G47.62 Sleep related leg cramps; E11.65 Type 2 diabetes mellitus with hyperglycemia

== ENCOUNTER → 2024-08-06 11:23 | Outpatient (BNVA) | payer MEDICARE, SELFPAY | PROVIDERS: PCP Internal Medicine; Visit Provider Internal Medicine | DX: I10 Essential (primary) hypertension (principal); E66.09 Other obesity due to excess calories; Z68.32 Body mass index [BMI] 32.0-32.9, adult; E11.65 Type 2 diabetes mellitus with hyperglycemia; G47.62 Sleep related leg cramps; Z71.3 Dietary counseling and surveillance | CPT/HCPCS: 96127; 99212 ==

== ENCOUNTER 2024-09-25 10:43 | Outpatient (AMB) | payer MEDICARE, SELFPAY ==
--- NOTE | 2024-09-25 10:58 | A.OFFVIS_ITS ---
Vital Signs 09/25/24 10:59 Height 6 ft Weight 235 lb 14.314 oz BMI 32.0 BP 130/82 Blood Pressure Location Lt brachial Position Sitting Pulse 63 Intake Visit Reasons: 1 yr fu/ clear for colonoscopy/Ryan Intake Note: 1 year follow-up with ekg and pre-op clearance colonscopy feeling god Cook Specialty Foreign Food Required: No Allergies No Known Allergies Allergy (Verified 08/06/24 11:48) Medication List - Last Reconciled 09/25/24 by Kb Ariza MD albuterol sulfate 90 mcg/actuation 2 puffs inhalation Q6H PRN aspirin (Adult Low Dose Aspirin) 81 mg PO DAILY cholecalciferol (vitamin D3) 25 mcg PO DAILY lisinopril 20 mg PO DAILY magnesium 250 mg PO DAILY metformin Take 2 tablets or a 1000 mg in the morning with breakfast and 500 mg or 1 tablet at night with supper 90 days metoprolol succinate ER 100 mg PO DAILY rosuvastatin 20 mg PO BEDTIME HPI Comments Details: Harley comes for follow-up. He has been doing well from cardiac perspective. He denies any exertional chest pain or shortness of breath. Takes all his medications. He has hemoglobin A1c says is slightly further elevated. His me tformin was recently increased. Takes all his medications. Blood pressures been well controlled. Last LDL of 48 mg/dL. Has any heart failure symptoms. No lightheadedness, syncope, palpitations. [facility] Medical History Diabetes mellitus with hyperglycemia, without long-term current use of insulin History of cardiomyopathy Nocturnal leg cramps Obesity due to excess calories HTN (hypertension) CAD (coronary artery disease) Thoracic aortic aneurysm Surgical History H/O cardiac catheterization Family History Father Diabetes mellitus Mother CVD (cardiovascular disease) Myocardial infarction Sister HTN (hypertension) Breast cancer Sister Breast cancer HTN (hypertension) Brother Cancer of pancreas Lung cancer HTN (hypertension) Sister No problems noted. Sister No problems noted. Sister No problems noted. Sister No problems noted. Daughter No problems noted. Daughter No problems noted. Social History Housing: House Patient Tobacco Use Status: Former Tobacco user Tobacco use type: Cigarette Years Smoked: 42 e-Cigarette/Vaping Use: Never Used Second Hand Smoke Exposure: No service: No Current occupational status: retired Cognitive needs: No Hearing needs: No Vision needs: Yes Review of Systems Const Denies chills, Denies fatigue, Denies fever(s), Denies frequent falls, Denies weakness, Denies weight gain and Denies weight loss ENT Denies dizziness Card Denies chest pain, Denies leg edema, Denies lightheadedness, Denies palpitations, Denies dyspnea, Denies dyspnea on exertion, Denies orthopnea and Denies other (loss of consciousness) Resp Denies cough, Denies dyspnea and Denies dyspnea on exertion GI Denies hematochezia and Denies change in stool character Musc Denies abnormal gait, Denies muscle weakness, Denies numbness, Denies radiating pain into limb and Denies tingling Neuro Denies abnormal gait, Denies dizziness, Denies frequent falls, Denies numbness, Denies tingling and Denies weakness Endo Denies fatigue and Denies palpitations Physical Exam Vital Signs: Last Vital Signs Pulse 63 09/25/24 10:59 BP 130/82 09/25/24 10:59 BMI result Body Mass Index 32.0 Const General: cooperative, comfortable, alert and awake Nutritional Appearance: obese Orientation/consciousness: patient oriented x3 Limitations: no limitations Neck Neck: Yes trachea midline, Yes supple and Yes no JVD Chest Chest palpation & inspection: normal inspection of the chest Resp Effort & Inspection: normal respiratory effort Auscultation: clear to auscultation bilaterally Cardio Jugular venous distension: no JVD Palpation: normal PMI Rate: regular rate Rhythm: regular rhythm Heart sounds: S1 normal heart sound present and S2 normal heart sound present Skin General skin exam: no rashes or lesions noted Neuro General: patient oriented x3 and no focal motor deficits Extrem General: Yes no clubbing, cyanosis or edema Psych Appearance: grossly normal Office Procedures EKG Details: EKG shows normal sinus rhythm normal EKG 57869-[id number], Complete Assessment & Plan Assessment & Plan (1) CAD (coronary artery disease): Code(s): I25.10 - Atherosclerotic heart disease of upper [place] coronary artery without angina pectoris Category: Medical Plan: CAD remote with no recent symptoms suggestive of progressive atherosclerosis or angina. Continue aggressive medical therapy. Lifelong aspirin therapy is advised. Continue aggressive blood pressure control which is currently well optimized on current therapy with metoprolol as well as lisinopril. This also led to improvement in his LV ejection fraction. Importance of good blood pressure control was discussed. Target goal blood pressure less than 130/84 advised to monitor blood pressure at home. Continue high-intensity statin therapy with very well optimized LDL at this point in time. Encouraged to maintain activity level as tolerated. Advised to continue aggressive diabetes management goal hemoglobin A1c less than 7% being pursue through your office. (2) Thoracic aortic aneurysm: Code(s): I71.2 - Thoracic aortic aneurysm, without rupture Category: Medical Plan: Thoracic aortic aneurysm with moderate enlargement of thoracic aorta. Will follow-up echocardiogram in 1 month's time. Advised to continue aggressive blood pressure control. Advised to avoid sudden strenuous isometric exercise. Advised to seek emergency care if he was sudden significant retrosternal chest pain. (3) Preoperative cardiovascular examination: Code(s): Z01.810 - Encounter for preprocedural cardiovascular examination Plan: Preoperative cardiovascular risk stratification for colonoscopy and endoscopy. This is considered low risk procedure. From cardiac perspective he has good functional capacity and currently having no symptoms and is currently optimized to undergo the procedure with low to intermediate risk for perioperative cardiovascular morbidity mortality. Continue all medications with the exception of aspirin from cardiac perspective which can be held for 5-7 days prior to the procedure as per provider's discretion. Continue all other medications in the perioperative time. Will follow up in the clinic in 14 months time, sooner p.r.n.. Thank you for allowing me to partake in his care Orders: Orders CA echo transthoracic complete 1 Month I71.2 - Thoracic aortic aneurysm, without rupture Coding Level of Care Code Est Pt Level 4 (14733) Complex EM visit Add On G2211 Diagnoses CAD (coronary artery disease) I25.10 Thoracic aortic aneurysm I71.2 Preoperative cardiovascular examination Z01.810 CPT Codes EKG - CPT: 37623-Xolhhbhodaczjqdcg, Complete ([id number])
[2024-09-25 10:59] VITALS: BP 130/82; PULSE 63; BMI 32.0
--- OUTSIDE RECORDS SUMMARY | 2024-09-25 12:53 | XMS_ITS ---
Author Organization [facility] Address [address] [place] [id number] Care Team Providers Care Logistics And Planning Manager Name Role Phone Denise GRIMES, Mary Primary Care Provider Ander Mejía Jr Unavailable [phone] Allergies No Known Allergies REASON FOR VISIT The patient is seen today for consultation Medications Medication SIG (Take, Route, Frequency, Duration) Notes [...] for 30 day(s) Active Aspir-81 81mg Active Problems Problem Type SNOMED Code ICD Code Onset Dates Problem Status W/U Status Risk Notes Problem 432267010 Gastroesophageal reflux disease, unspecified whether esophagitis present (K21.9) Active confirmed Problem 89540154 Gastric intestin al metaplasia (K31.A0) Active confirmed Problem 686864798 Colon cancer screening (Z12.11) Active confirmed Vital Signs Temperature 97.7 degrees Fahrenheit 07/26/19 25 Blood pressure systolic 000 mm Hg 07/26/19 25 Blood pressure diastolic 00 mm Hg 025 Height 71.75 in 07/26/2024 Weight 235 lbs 07/26/2024 BMI 32.09 kg/m2 07/26/2024 Encounters Encounter Location Date Provider Diagnosis [facility] [address] [place] [address] 07/26/2024 Ander Ozuna Jr Gastroesophageal reflux disease, unspecified whether esophagitis present K21.9 ; Gastric intestinal metaplasia K31.A0 and Colon cancer screening Z12.11 Assessments Encounter Date Diagnosis (ICD Code) Assessment Notes Treatment Notes Treatment Clinical Notes Section Notes 07/26/2024 Gastroesophageal reflux disease, unspecified whether esophagitis present (ICD-10 - K21.9) Endoscopy material was printed We discussed gastroesophageal reflux disease today. We discussed diet, lifestyle modifications, and weight management. He will have upper endoscopy for further evaluation of his symptoms and for his history of gastric intestinal metaplasia. Colonoscopy will be arranged at the same time for colon cancer screening. He understands risks and benefits and agrees to proceed. He is advised to stop aspirin one week before the procedure and metformin the day before the procedure. 07/26/2024 Gastric intestinal metaplasia (ICD-10 - K31.A0) We discussed gastroesophageal reflux disease today. We discussed diet, lifestyle modifications, and weight management. He will have upper endoscopy for further evaluation of his symptoms and for his history of gastric intestinal metaplasia. Colonoscopy will be arranged at the same time for colon cancer screening. He understands risks and benefits and agrees to proceed. He is advised to stop aspirin one week before the procedure and metformin the day before the procedure. 07/26/2024 Colon cancer screening (ICD-10 - Z12.11) We discussed gastroesophageal reflux disease today. We discussed diet, lifestyle modifications, and weight management. He will have upper endoscopy for further evaluation of his symptoms and for his history of gastric intestinal metaplasia. Colonoscopy will be arranged at the same time for colon cancer screening. He understands risks and benefits and agrees to proceed. He is advised to stop aspirin one week before the procedure and metformin the day before the procedure. Plan Of Treatment Medication Medication Name Sig Start Date Stop [...] Provider Name:Ander santiago Jr, 10/09/2024 08:30:00 AM, [address] [place] [address], [phone], Progress Notes * AYDE PAULINO RDOB: 0 (73 yo M)Acc No.[id number]:07/26/2024 Progress Notes Patient:?AYDE PAULINO Provider:?Ander Ozuna MD :1950???Age:73 Y???Sex:Male Rahul e:07/26/2024 Address:[address] [place], [place] [id number] Pcp:Mary Walker MD Subjective: * Chief Complaints: * ???1. The patient is seen to day for consultation. * HPI: ???New symptom(s):? Ayde is a pleasant 73-year-old man seen today in consultation. He has a history of gastroesophageal reflux disease with substernal burning precipitated by typical foods including spicy foods and fatty foods. Symptoms have been well-controlled with diet. He previously underwent upper endoscopy in December of 2013 which showed a squamous papilloma, and 2 small superficial ulcers below the EG junction. Biopsies showed H. pylori and gastric intestinal metaplasia. His H. pylori infection was treated with antibiotics. ?He underwent colonoscopy in May of 2012 which was normal. Ten-year followup was recommended for 2021. He has no complaints of rectal bleeding or change in his bowel habits. Weight and appetite have been stable. * ROS:?General/Constitutional:?Change in appetite?denies.?Fatigue?denies.?ENT:?Patient denies?difficulty swallowing.?Respiratory:?Patient denies?shortness of breath.?Cardiovascular:?Patient denies?chest pain.?Gastrointestinal:?Comments?See HPI for details.?Genitourinary:?Difficulty urinating?denies.?Incontinence?denies.?Musculoskeletal:?Patient denies?muscle aches.?Skin:?Patient denies?pruritis.?Neurologic:?Patient denies?low back pain.?Psychiatric:?Patient denies?mental or physical abuse.? * Medical History:?Diabetes me llitus type 2, Hypertension, Hyperlipidemia, Thoracic aortic aneurysm, 4.7 cm 05/13, Coronary artery disease. * Surgical History:?Cardiac ca theterization . * Family History:?Father: dece ased, diagnosed with Diabetes.?Mother: , diagnosed with Heart disease.?Siblings: brother- pancreatic cancer.? No family history of colon cancer or liver cancer. * Social History:?Tobacco Use:?Tobacco Use/Smoking?Are you a: former smoker , How long has it been since you last smoked?: > 10 years.?Drugs/Alcohol:?Alcohol Screen?Points: 1, Interpretation: Negative.?Miscellaneous:?Marital status: . 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 * Medications:?Taking Magnesiu m 300 MG Capsule 1 capsule with a meal Orally Once a day, Taking Vitamin D-3 25 MCG (1000 UT) Capsule 1 capsule Orally Once a day, Taking Aspir-81 81mg , Taking Rosuvastatin Calcium 20 MG Tablet TAKE ONE TABLET BY MOUTH EVERY EVENING AT BEDTIME Oral , Taking Lisinopril 20 MG Tablet TAKE ONE TABLET BY MOUTH EVERY DAY Oral , Taking metFORMIN HCl 500 MG Tablet TAKE ONE TABLET BY MOUTH TWICE A DAY; TAKE WITH SUPPER Oral , Taking Metoprolol Succinate ER 100 MG Tablet Extended Release 24 Hour TAKE ONE TABLET BY MOUTH EVERY DAY Oral , Discontinued PriLOSEC prn , Discontinued Crestor 20mg , Medication List reviewed and reconciled with the patient * Allergies:?N.K.D.A. Objective: * Vitals:?Wt: 235 lbs, Ht: 71. 75 in, BMI:32.09 Index, BP: 000/00 mm Hg, Temp: 97.7. * Examination: ???General Examination: ?GENERAL APPEARANCE:?in no acute distress.?HEAD:?normocephalic.?EYES:?sclera non-icteric.?ORAL CAVITY:?mucosa moist.?NECK/THYROID:?no lymphadenopathy.?SKIN:?anicteric.?HEART:?S1, S2 normal, no murmurs.?LUNGS:?clear to auscultation bilaterally.?CHEST:?normal shape and expansion.?ABDOMEN:?soft, nontender, nondistended, bowel sounds present, no organomegaly .?EXTREMITIES:?no clubbing, cyanosis, or edema.?PSYCH:?cognitive function intact.? Assessment: * Assessment: 1.?Gastroesophageal reflux d isease, unspecified whether esophagitis present - K21.9 (Primary)?2.?Gastric intestinal metaplasia - K31.A0?3.?Colon cancer screening - Z12.11? We discussed gastroesophagea l reflux disease today. We discussed diet, lifestyle modifications, and weight management. He will have upper endoscopy for further evaluation of his symptoms and for his history of gastric intestinal metaplasia. Colonoscopy will be arranged at the same time for colon cancer screening. He understands risks and benefits and agrees to proceed. He is advised to stop aspirin one week before the procedure and metformin the day before the procedure. Plan: * Treatment: 2.?Colon cancer screening? Start MiraLax (colon prep), 8.3 ounce ((238) grams, mixed with Gatorade or Crystal Light, orally, begin at 5:00 p.m. the day before the procedure, 1 day, 1 container, Refills no refills.?Procedure: COLONOSCOPY (Ordered for 07/26/2024) * Procedure Codes:?G9903 Pt sc rn tbco id as non user * Preventive Medicine:? ??Counseling:?Care goal follow-up plan:?Above Normal BMI Follow-up?Giving encouragement to exercise,?BMI management provided?Yes.? ??Screenings:?Fall Risk Screening?Fall Risk Assessment:?No falls in the past year,?Screening:?No falls in the past year,?Assessment:?Not performed, no reason specified,?Plan of Care:?Not documented, no reason specified.? * Follow Up:?1 Year * * Sign off status: Completed true * Provider:?Ander Ozuna MD Date:?0 07/26/2024 Generated for Edgardo ferrer/Kenny/eTransmitting on:?09/25/2024 12:53 PM EDT History and Physical Notes * HPI (History of Present Illness) Category Sub-Category Detail Notes Category Not es New symptom(s) Ayde is a pleasant 73-year-old man seen today in consultation. He has a history of gastroesophageal reflux disease with substernal burning precipitated by typical foods including spicy foods and fatty foods. Symptoms have been well-controlled with diet. He previously underwent upper endoscopy in December of 2013 which showed a squamous papilloma, and 2 small superficial ulcers below the EG junction. Biopsies showed H. pylori and gastric intestinal metaplasia. His H. pylori infection was treated with antibiotics. He underwent colonoscopy in May of 2012 which was normal. Ten-year followup was recommended for 2021. He has no complaints of rectal bleeding or change in his bowel habits. Weight and appetite have been stable. Examination Category Sub-Category Detail Notes Category Not es General Examination GENERAL APPEARANCE: in no acute di stress HEAD: normocephalic EYES: sclera non-icteric NECK/THYROID: no lymphadenopathy HEART: S1, S2 normal, no mu rmurs CHEST: normal shape and exp ansion LUNGS: clear to auscultatio n bilaterally ABDOMEN: soft, nontender, non distended, bowel sounds present, no organomegaly SKIN: anicteric EXTREMITIES: no clubbing, cyanosi s, or edema PSYCH: cognitive function i ntact ORAL CAVITY: mucosa moist
--- OUTSIDE RECORDS SUMMARY | 2024-09-25 12:53 | XMS_ITS ---
Author Organization [facility] Address [address] [place] [phone] Care Team Providers Care Principal Consulting Engineer Name Role Phone Denise GRIMES, Mary Primary Care Provider Sara Ozuna Jr, Ander Glez REASON FOR VISIT NEW INSURANCE Encounters Encounter Location Date Provider Diagnosis [facility] [address] [place] [phone] 07/25/2024 Ander Ozuna Jr Plan Of Treatment Next Appt Details Provider Name:Ander santiago Jr, 10/09/2024 08:30:00 AM, [address] [place] [address] , [place], [phone], Progress Notes * AYDE PAULINODOB:1950 (73 yo M)Acc No.[id number]:07/25/2024 Patient:?AYDE PAULINO :1950???Age:73 Y???Sex:Male Address:[address] [place] [address], [phone] * true * Date:? Generated for Derreki carissa/Kenny/eTransmitting on:?09/25/2024 12:53 PM EDT
--- OUTSIDE RECORDS SUMMARY | 2024-09-25 12:54 | XMS_ITS | Patient Health Record ---
Author Organization [facility] Address [address] [place] [phone] Care Team Providers Care Explosive Ordnance Disposal Specialist Name Role Phone Denise GRIMES, Mary Primary Care Provider Ander Mejaí Jr Unavailable [phone] Allergies No Known Allergies Reason For Referral No Information Medications Medication SIG (Take, Route, Frequency, Duration) [...] OUTH EVERY DAY Oral for 90 Active Immunizations Vaccine Route Administration Date Status Comme nts Influenza Unknown 04/10/2024 Administered Problems Problem Type SNOMED Code ICD Code Onset Dates Problem Status W/U Status Risk Notes Problem Esophageal reflux (376102273) Esophageal reflux (530.81) Active confirmed Problem 396729962 Colon cancer screening (Z12.11) Active confirmed Problem 498398250 Gastroesophageal reflux disease, unspecified whether esophagitis present (K21.9) Active confirmed Problem 55390057 Gastric intestin al metaplasia (K31.A0) Active confirmed Vital Signs Temperature 97.7 degrees Fahrenheit 07/26/2024 Blood pressure diastolic 00 mm Hg 07/26/2024 Height 71.75 in 07/26/2024 Blood pressure systolic 000 mm Hg 07/26/2024 Weight 235 lbs 07/26/2024 BMI 32.09 kg/m2 07/26/2024 Encounters Encounter Location Date Provider Diagnosis [facility] [address] [place] [phone] 07/26/2024 Ander Ozuna Jr Gastroesophageal reflux disease, unspecified whether esophagitis present K21.9 ; Gastric intestinal metaplasia K31.A0 and Colon cancer screening Z12.11 [facility] [address] [place] [phone] 07/25/2024 Ander Ozuna Jr Assessments Encounter Date Diagnosis (ICD Code) Assessment [...] day before the procedure. Plan Of Treatment Future Test Test Name Order Date COLONOSCOPY 05/24/2012 UPPER GI ENDOSCOPY 09/26/2013 UPPER GI ENDOSCOPY 07/26/2024 COLONOSCOPY 07/26/2024 Next Appt Details Provider Name:Ander santiago Jr, 10/09/2024 08:30:00 AM, [address] [place] [address] , [place], [place], [phone], Insurance Providers Payer Name Payer Address Payer Phone Subscriber Number Group Number Insured Name Patient Relationship to Insured Coverage Start Date Coverage End Date [facility] [address] [place] [address] [id number] AYDE PAULINO Self - patient is the insured Medical (General) History Medical History History ICD Code Diabetes mellitus type 2 Hypertension Hyperlipidemia Thoracic aortic aneurysm, 4.7 cm 05/13 Coronary artery disease Surgical History Surgery Date(Month/Year) Cardiac catheterization
== END 2024-09-25 11:22 | disposition home or self-care (01) ==
LOC: HO.HCS 10:43
PROVIDERS: PCP Internal Medicine; Visit Provider Internal Medicine Cardiovascular Disease
DX: I25.10 Atherosclerotic heart disease of native coronary artery without angina pectoris (principal); I71.20 Thoracic aortic aneurysm, without rupture, unspecified; Z01.810 Encounter for preprocedural cardiovascular examination
CPT/HCPCS: 93010; 99214; G2211

== ENCOUNTER → 2024-09-25 10:43 | Outpatient (BNVA) | payer MEDICARE, SELFPAY | PROVIDERS: PCP Internal Medicine; Visit Provider Internal Medicine Cardiovascular Disease | DX: Z01.810 Encounter for preprocedural cardiovascular examination (principal); I10 Essential (primary) hypertension; I25.10 Atherosclerotic heart disease of native coronary artery without angina pectoris; I71.20 Thoracic aortic aneurysm, without rupture, unspecified; Z87.891 Personal history of nicotine dependence; Z79.899 Other long term (current) drug therapy | CPT/HCPCS: 93005; 99212 ==

== ENCOUNTER 2024-10-09 07:00 | Day surgery (SDC) | payer MEDICARE, SELFPAY ==
--- OUTSIDE RECORDS SUMMARY | 2024-08-16 13:07 | XMS_ITS ---
Author Organization [facility] Address [address] [place] [id number] Care Team Providers Care Tetryl Boiling Tub Operator Name Role Phone Denise GRIMES, Mary Primary Care Provider Ander Mejía Jr Unavailable [phone] ALLERGIES No Known Allergies REASON FOR VISIT [...] unspecified whether esophagitis present (K21.9) Active confirmed [id number] Problem Gastric intestinal metaplasia (K31.A0) Active confirmed 70669015 Problem Colon cancer screening (Z12.11) Active confirmed [id number] VITAL SIGNS Temperature 97.7 degrees Fahrenheit 07/26/19 25 Blood pressure systolic 000 mm Hg 07/26/19 25 Blood pressure diastolic 00 mm Hg 025 Height 71.75 in 07/26/2024 Weight 235 lbs 07/26/2024 BMI 32.09 kg/m2 07/26/2024 Encounters Encounter Location Date Provider Diagnosis [facility] [address] [place] [address] 07/26/2024 Ander Ozuna Jr Gastroesophageal reflux disease, [...] Provider Name:Ander santiago Jr, 10/09/2024 08:30:00 AM, [address] [place] [address] , [place], [place], [id number], Progress Notes * Examination Category Sub-Category Detail [...]
--- OUTSIDE RECORDS SUMMARY | 2024-08-16 13:07 | XMS_ITS ---
Author Organization [facility] Address [address] [place] [phone] Care Team Providers Care Dietary Aide Cook Name Role Phone Mary Walker MD Primary Care Provider Sara Ozuna Jr, Ander Glez REASON FOR VISIT NEW INSURANCE Encounters Encounter Location Date Provider Diagnosis [facility] [address] [place] [phone] 07/25/2024 Ander Ozuna Jr PLAN OF TREATMENT Next Appt Details Provider Name:Ander santiago Jr, 10/09/2024 08:30:00 AM, [address] [place] [address] , [place], [place], [phone],
--- OUTSIDE RECORDS SUMMARY | 2024-08-16 13:07 | XMS_ITS | Patient Health Record ---
Author Organization [facility] Address [address] [place] [phone] Care Team Providers Care Insulation Packer Name Role Phone Denise GRIMES, Mary Primary [...] Esophageal reflux (530.81) Active confirmed Esophageal reflux (002129640) Problem Colon cancer screening (Z12.11) Active confirmed [id number] Problem Gastroesophageal reflux disease, unspecified whether esophagitis present (K21.9) Active confirmed 262956801 Problem Gastric intestinal metaplasia (K31.A0) Active confirmed 58676477 VITAL SIGNS Temperature 97.7 degrees Fahrenheit 07/26/2024 Blood pressure diastolic 00 mm Hg 07/26/2024 Height 71.75 in 07/26/2024 Blood pressure systolic 000 mm Hg 07/26/2024 Weight 235 lbs 07/26/2024 BMI 32.09 kg/m2 07/26/2024 Encounters Encounter Location Date Provider Diagnosis [facility] [address] [place] [phone] 07/26/2024 Ander Ozuna Jr Gastroesophageal reflux disease, unspecified whether esophagitis present K21.9 ; Gastric intestinal metaplasia K31.A0 and Colon cancer screening Z12.11 [facility] [address] [place] [phone] 07/25/2024 Ander Ozuna Jr ASSESSMENTS Encounter Date [...] Provider Name:Ander santiago Jr, 10/09/2024 08:30:00 AM, [address] [place] [address] , [place], [place], [id number], Insurance Providers Payer Name Payer Address Payer Phone Subscriber Number Group Number Insured Name Patient Relationship to Insured Coverage Start Date Coverage End Date [facility] [facility] [address] [place] [address] [phone] [id number] AYDE PAULINO Self - patient is the insured MEDICAL (GENERAL) HISTORY Medical History History ICD Code Diabetes mellitus type 2 Hypertension Hyperlipidemia Thoracic aortic aneurysm, 4.7 cm 05/13 Coronary artery disease Surgical History Surgery Date(Month/Year) Cardiac catheterization
[2024-10-03 15:09] VITALS: BMI 32.1
--- NOTE | 2024-10-05 09:18 | P.CONAN_ITS ---
Documented by User: Sophia Hernandez NP 10/05/24 09:21 HPI - Anesthesia Eval Consult details Narrative: 73yo M for Upper Endoscopy and Colonoscopy [place] [facility] [place], TAA. Optimized per 09/2024 office visit [facility] Active Problems Active Problems: All Active Problems Diabetes mellitus with hyperglycemia, without long-term current use of insulin (Acute) Nocturnal leg cramps (Acute) Obesity due to excess calories (Acute) HTN (hypertension) (Acute) CAD (coronary artery disease) (Acute) Thoracic aortic aneurysm (Acute) Past Medical History Medical History (Updated 10/03/24 @ 15:13 by Bindu gNo RN) GERD (gastroesophageal reflux disease) Nocturnal leg cramps Obesity due to excess calories Diabetes mellitus with hyperglycemia, without long-term current use of insulin HTN (hypertension) History of cardiomyopathy CAD (coronary artery disease) Thoracic aortic aneurysm Family History Family History Father Diabetes mellitus Mother CVD (cardiovascular disease) Myocardial infarction Sister HTN (hypertension) Breast cancer Sister Breast cancer HTN (hypertension) Brother Cancer of pancreas Lung cancer HTN (hypertension) Sister No problems noted. Sister No problems noted. Sister No problems noted. Sister No problems noted. Daughter No problems noted. Daughter No problems noted. Surgical History Surgical History (Updated 10/03/24 @ 15:09 by Bindu Ngo RN) H/O colonoscopy H/O cardiac catheterization Social History Social History Housing: House Patient Tobacco Use Status: Former Tobacco user Tobacco use type: Cigarette Years Smoked: 42 e-Cigarette/Vaping Use: Never Used Second Hand Smoke Exposure: No Advance Directives: No Advance Directives Information Provided: Yes service: No Current occupational status: retired Cognitive needs: No Hearing needs: No Vision needs: Yes Meds Allergies Allergy/AdvReac Type Severity Reaction Status Date / Time No Known Allergies Allergy Verified 08/06/24 11:48 Home Medications ?Medication ?Instructions ?Recorded ?Confirmed ?Last Taken ?Type aspirin 81 mg tablet,delayed 81 mg PO DAILY 03/16/21 10/03/24 Unknown History release (Adult Low Dose Aspirin) magnesium 250 mg tablet 250 mg PO DAILY 08/22/23 10/03/24 Unknown History cholecalciferol (vitamin D3) 25 25 mcg PO DAILY 09/26/23 10/03/24 Unknown History mcg (1,000 unit) capsule Exam Height,Weight and Vital Signs: Height 5 ft 11.75 in Weight 106.594 kg Pertinent Lab Results Pertinent Lab Results: Laboratory Tests 08/04/24 09:08 Sodium 141 Potassium 4.3 Chloride 106 Carbon Dioxide 27 BUN 13 Creatinine 0.93 Narrative Narrative: EKG 09/2024 EKG Details: EKG shows normal sinus rhythm normal EKG ECHO 2023 Conclusions: - The left ventricular systolic function is normal. The calculated ejection fraction is 55% by biplane method. - No obvious valvular pathology seen on this study. - There is mild dilatation of the sinuses of Valsalva measuring 4.20 cm and moderate dilatation of the ascending aorta measuring 4.70 cm. Assessment and Plan Assessment Anesthesia Assessment: Chart Reviewed Documented by User: Umm Martinez MD 10/09/24 07:23 [facility] Past Medical History Medical History (Updated 10/03/24 @ 15:13 by Bindu Ngo RN) GERD (gastroesophageal reflux disease) Nocturnal leg cramps Obesity due to excess calories Diabetes mellitus with hyperglycemia, without long-term current use of insulin HTN (hypertension) History of cardiomyopathy CAD (coronary artery disease) Thoracic aortic aneurysm Family History Family History Father Diabetes mellitus Mother CVD (cardiovascular disease) Myocardial infarction Sister HTN (hypertension) Breast cancer Sister Breast cancer HTN (hypertension) Brother Cancer of pancreas Lung cancer HTN (hypertension) Sister No problems noted. Sister No problems noted. Sister No problems noted. Sister No problems noted. Daughter No problems noted. Daughter No problems noted. Family history of problems with anesthesia: No Surgical History Surgical History (Updated 10/03/24 @ 15:09 by Bindu Ngo RN) H/O colonoscopy H/O cardiac catheterization History of Problems with Anesthesia: No Social History Social History Housing: House Patient Tobacco Use Status: Former Tobacco user Tobacco use type: Cigarette Years Smoked: 42 e-Cigarette/Vaping Use: Never Used Second Hand Smoke Exposure: No Advance Directives: No Advance Directives Information Provided: Yes service: No Current occupational status: retired Cognitive needs: No Hearing needs: No Vision needs: Yes Meds Allergies Allergy/AdvReac Type Severity Reaction Status Date / Time No Known Allergies Allergy Verified 08/06/24 11:48 Home Medications ?Medication ?Instructions ?Recorded ?Confirmed ?Last Taken ?Type aspirin 81 mg tablet,delayed 81 mg PO DAILY 03/16/21 10/03/24 Unknown History release (Adult Low Dose Aspirin) magnesium 250 mg tablet 250 mg PO DAILY 08/22/23 10/03/24 Unknown History cholecalciferol (vitamin D3) 25 25 mcg PO DAILY 09/26/23 10/03/24 Unknown History mcg (1,000 unit) capsule Exam Airway Mallampati Class: II TM Dist: >3cm Neck ROM: Full Denture: Upper Assessment and Plan Assessment Anesthesia Assessment: Anesthesia Plan Discussed Final Anesthetic Review Family History of Problems with Anesthesia: No History of Problems with Anesthesia: No NPO: Yes ASA Class: III Final Preanesthetic Review: No Changes in Pt Med Stat, Meds/Allgs Chart Reviewed, Consent Obtained/Reviewed and Anes Risks/Benef Reviewed Patient Risk: Intermediate Procedure Risk: Low Anesthetic Plan Anesthetic Plan: TIVA Disposition: Standard PACU
[2024-10-09 07:30] VITALS: BP 141/82; PULSE 87; RESP 18; TEMP 36.6; O2SAT 98; BMI 30.5
[2024-10-09 07:40] LABS: Glucose, Whole Blood 177 mg/dL (60-115)
[2024-10-09] MEDS: Lactated Ringers 1,000 ML 100 ML IVCONT (08:02)
--- NOTE | 2024-10-09 08:18 | MHC.SHP ---
Pre-Procedural Eval Section A - 24 Hr Update-Section A only Date of Service: 10/09/24 Section B - Complete if H&P > 30 days Chief Complaint: gerd,screening Details of Present Illness: see h&P no chagnes Relevant Family History (Specify if Yes): No Relevant Social History: None Present Medications: see Short Stay Collaborative assessment Medical History: No relevant PMH History of Previous Operations: No relevant previous surgery Allergies: Allergies Allergy/AdvReac Type Severity Reaction Status Date / Time No Known Allergies Allergy Verified 10/09/24 08:05 Review of Systems Sugical H&P ROS: Negative: Constitution, Cardiovascular, Respiratory, Neurological, Psychiatric, Hem-Onc, Allergic/Immunologic, Gastrointestinal, Genitourinary, Musculoskeletal, Integumentary, Endocrine and Eyes/Ears/Nose/Throat Exam Surgical H&P Exam: Normal: HEENT, Normal: Heart, Normal: Lungs, Normal: Extremities, Normal: Abdomen, Normal: Skin and Normal: Neurological Plan Diagnosis/Plan: Unchanged I have reviewed the history and physical and performed a pertinent physical examination on my patient. No changes have occurred unless specified. Time Spent With Patient Time: Total time managing care of this patient today ____ minutes.
--- NOTE | 2024-10-09 08:57 | PM.OP ---
Brief Operative Note Date of Service: 10/09/24 Pre-op diagnosis: GIM screening Post-op diagnosis: same Procedure: egd colon Surgeon: Ander Ozuna MD Anesthesia: MAC Was an Internet Assessor used for this Procedure?: No Estimated blood loss (mL): 5 Pathology: other Condition: stable Disposition: PACU
[2024-10-09 08:59] VITALS: BP 95/53; PULSE 60; RESP 14; TEMP 36.1; O2SAT 99
[2024-10-09 09:14] VITALS: BP 100/52; PULSE 63; RESP 16; TEMP 37.3; O2SAT 95
--- NOTE | 2024-10-09 09:14 | OP_ITS ---
DATE OF SERVICE: 10/09/2024 SURGEON: Ander Ozuna MD INDICATIONS: Gastric intestinal metaplasia and colon cancer screening. PREOPERATIVE DIAGNOSIS: POSTOPERATIVE DIAGNOSIS: PROCEDURE PERFORMED: ESTIMATED BLOOD LOSS: COMPLICATIONS: ANESTHESIA: ASSISTANTS: SPECIMENS: PROCEDURES: Upper endoscopy with biopsy, colonoscopy to the cecum. MEDICATIONS: Monitored anesthesia care. DESCRIPTION OF PROCEDURE: History and physical were performed. The risks and benefits of the procedure were explained to the patient. Informed consent was obtained. The patient was placed in the left lateral decubitus position. The Olympus video gastroscope was introduced into the esophagus, stomach, and duodenum. Examination was performed. The scope was removed. He was repositioned for colonoscopy. A digital rectal exam was performed and was found to be normal. The Olympus pediatric video colonoscope was introduced into the rectum and advanced to the cecum. The cecum was identified by transillumination, palpation, and identification of ileocecal valve. Examination was performed. The scope was removed. He tolerated both procedures well and was returned to recovery in stable condition. FINDINGS: Upper endoscopy, esophagus: The esophagus was normal. There was no esophagitis. Stomach: The stomach was normal. Biopsies were obtained throughout the stomach because of the patient's history of gastric intestinal metaplasia. Duodenum: The bulb and second portion were normal. Colonoscopy: The terminal ileum was not examined. The visualized colonic mucosa was normal. The quality of the prep was good. No polyps were identified. There was mild sigmoid diverticulosis. Retroflexed examination showed small internal hemorrhoids. IMPRESSION: 1. Gastric intestinal metaplasia. 2. Normal colonoscopy. RECOMMENDATIONS: 1. Follow up the biopsy results. 2. Repeat 10 year screening colonoscopy is ooptional based on age. . MD JER Cornejo/KHOA / [id number] MTDD
== END 2024-10-09 10:00 | disposition home or self-care (01) ==
PROVIDERS: PCP Internal Medicine; Visit Provider Internal Medicine Gastroenterology
PROC: (CPT 43239; principal; 2024-10-09 08:30)
DX: Z12.11 Encounter for screening for malignant neoplasm of colon (principal); K57.30 Diverticulosis of large intestine without perforation or abscess without bleeding; K64.8 Other hemorrhoids; K31.A0 Gastric intestinal metaplasia, unspecified; K21.9 Gastro-esophageal reflux disease without esophagitis; I10 Essential (primary) hypertension; E78.5 Hyperlipidemia, unspecified; I25.10 Atherosclerotic heart disease of native coronary artery without angina pectoris; I71.20 Thoracic aortic aneurysm, without rupture, unspecified; Z79.82 Long term (current) use of aspirin; Z79.84 Long term (current) use of oral hypoglycemic drugs; Z79.899 Other long term (current) drug therapy; Z87.891 Personal history of nicotine dependence
CPT/HCPCS: 43239; G0121; 82947; 88305; 88313; 88342; J2003; J2704

== ENCOUNTER 2024-11-07 06:07 | Outpatient (REF) | payer MEDICARE, SELFPAY ==
[2024-11-07 10:20] LABS: Estimated Average Glucose 157 mg/dL; Hemoglobin A1C 185.5256 umol/L; Hemoglobin A1c % 7.1 % (<6.0); Total Hemoglobin (HGBA1C) 3453.0319 umol/L
[2024-11-07 11:35] LABS: Alanine Aminotransferase 17 U/L (0-40); Anion Gap 12 (12-20); Aspartate Amino Transferase 28 U/L (5-37); Blood Urea Nitrogen 19 mg/dL (9-16); Calcium 9.2 mg/dL (8.4-10.2); Carbon Dioxide 28 mmol/L (22-29); Chloride 104 mmol/L (96-108); Estimated Glomerular Filt Rate > 60; Glucose Fasting 139 mg/dL (60-99); Potassium 4.5 mmol/L (3.3-5.1); Sodium 139 mmol/L (135-145)
== END 2024-11-07 06:08 | disposition home or self-care (01) ==
LOC: HO.HMGCLDS 06:07
PROVIDERS: PCP Internal Medicine; Visit Provider Internal Medicine
DX: G47.62 Sleep related leg cramps (principal); I10 Essential (primary) hypertension; E66.811 Obesity, class 1; Z68.32 Body mass index [BMI] 32.0-32.9, adult
CPT/HCPCS: 36415; 80048; 83036; 84450; 84460

== ENCOUNTER 2024-11-08 09:11 | Outpatient (AMB) | payer MEDICARE, SELFPAY ==
--- NOTE | 2024-11-08 09:14 | MHC.PC.OV ---
Vital Signs 11/08/24 09:15 Height 5 ft 11 in Weight 229 lb BMI 31.9 BP 152/78 H Blood Pressure Location Lt brachial Position Sitting Respiration 16 Pulse 63 Pulse Source Pulse Oximeter Temp 98.2 F Temp Source Oral Pulse Oximetry (%) 99 Oxygen Delivery Method Room Air Intake Visit Reasons: 3 months f/up Intake Note: Pt is here today for his 3 mo.f/u Allergies No Known Allergies Allergy (Verified 11/18/24 03:41) Medication List - Last Reconciled 11/18/24 by Mary Walker MD albuterol sulfate 90 mcg/actuation 2 puffs inhalation Q6H PRN aspirin (Adult Low Dose Aspirin) 81 mg PO DAILY cholecalciferol (vitamin D3) 50 mcg PO DAILY lisinopril 20 mg PO DAILY magnesium 250 mg PO DAILY metformin Take 2 tablets or a 1000 mg in the morning with breakfast and 500 mg or 1 tablet at night with supper 90 days metoprolol succinate ER 100 mg PO DAILY omeprazole 20 mg PO DAILY rosuvastatin 20 mg PO BEDTIME Tobacco use date assessed: 11/08/24 Fall risk assessment: No Falls in past year Last assessed Fall Risk: 11/08/24 Dental Screening Dental Screen Date: 11/08/24 Did you have a dental visit in the last 12 months?: Yes Did you have a dental problem in the last 6 months where you did not have access to dental care?: No Was dental information given to patient?: Patient has dentist HPI 3 months f/up HPI Details 73 year-old male with history of type 2 diabetes mellitus, hypertension, dyslipidemia, here today for his follow-up. Patient states that he has not really been following recommended diet, but has been taking his medicines. Not much exercise this past winter. No complaints at present time [facility] Medical History GERD (gastroesophageal reflux disease) Nocturnal leg cramps Obesity due to excess calories Diabetes mellitus with hyperglycemia, without long-term current use of insulin HTN (hypertension) History of cardiomyopathy CAD (coronary artery disease) Thoracic aortic aneurysm Surgical History H/O colonoscopy H/O cardiac catheterization Family History Father Diabetes mellitus Mother CVD (cardiovascular disease) Myocardial infarction Sister HTN (hypertension) Breast cancer Sister Breast cancer HTN (hypertension) Brother Cancer of pancreas Lung cancer HTN (hypertension) Sister No problems noted. Sister No problems noted. Sister No problems noted. Sister No problems noted. Daughter No problems noted. Daughter No problems noted. Social History Housing: House Patient Tobacco Use Status: Former Tobacco user Tobacco use type: Cigarette Years Smoked: 42 e-Cigarette/Vaping Use: Never Used Second Hand Smoke Exposure: No service: No Current occupational status: retired Cognitive needs: No Hearing needs: No Vision needs: Yes Questionnaire Thrive Questionnaire Date Thrive assessed: 08/04/24 I am a: Patient What is your living situation today?: I have a steady place to live Within the past 12 months, did the food you bought not last and you didn't have the money to get more?: Never true Within the past 12 months, did you worry whether your food would run out before you got money to buy more?: Never true Do you have trouble paying for medicines?: No Do you have trouble getting transportation to medical appointments?: No Do you have trouble paying your heating and electricity bill?: No Do you have trouble taking care of your child, family member or friend?: No Do you have trouble with day-to-day activities such as bathing, preparing meals, shopping, managing finances, etc.?: No Are you currently unemployed and looking for a job?: No Are you interested in more education?: No Please select the resources that you would like help with: None Currently or been in a relationship where the following occur: No concerns reported THRIVE Score: 0 OLIVIER-7 AMB Questionnaire OLIVIER-7 Date OLIVIER - 7 assessed: 08/06/24 Source: Developed by Drs. Barrington Morocho, Pat Eli, Moi Morin and colleagues, with an educational natanael from [employer]. Review of Systems Const Denies chills, Denies fatigue, Denies fever(s), Denies frequent falls, Denies weakness and Denies weight loss Eyes Denies change in vision ENT Reports no additional complaints and Reports Normal hearing present Card Denies chest pain, Denies leg edema, Denies lightheadedness, Denies palpitations, Denies dyspnea, Denies dyspnea on exertion, Denies orthopnea and Denies other (loss of consciousness) Resp Denies cough, Denies dyspnea and Denies dyspnea on exertion GI Denies hematochezia and Denies change in stool character Reports no additional complaints Musc Denies abnormal gait, Denies muscle weakness, Denies numbness, Denies radiating pain into limb and Denies tingling Neuro Reports Normal hearing present, Denies abnormal gait, Denies frequent falls, Denies numbness, Denies Sensory deficit (Neuro), Denies tingling and Denies weakness Psych Reports no additional complaints Endo Denies fatigue and Denies palpitations Germain/Lymph Reports no additional complaints Aller/Immun Reports no additional complaints Physical exam (Primary Care) Vital Signs: Last Vital Signs Temp 98.2 F 11/08/24 09:15 Pulse 63 11/08/24 09:15 Resp 16 11/08/24 09:15 BP 152/78 H 11/08/24 09:15 Pulse Ox 99 11/08/24 09:15 Oxygen Delivery Method Room Air 11/08/24 09:15 BMI result Body Mass Index 31.9 Tobacco/Smoking Status: Tobacco use Status Tobacco use date assessed 11/08/24 11/08/24 09:26 Patient Tobacco Use Status Former Tobacco user 11/08/24 09:16 Tobacco use type Cigarette 11/08/24 09:16 e-Cigarette/Vaping Use Never Used 11/08/24 09:16 Thrive Assessment: Date of Thrive Assessment Date Thrive assessed 08/04/24 11/08/24 09:16 Currently or been in a relationship where the following occur: No concerns reported Const General: comfortable, no acute distress and alert Nutritional Appearance: obese Orientation/consciousness: patient oriented x3 HENMT Ears: external ears normal General nose exam: Normal external nose present and No nasal discharge present Mouth: oropharynx normal and moist mucous membranes Eyes General: appearance normal, both eyes and all related structures Conjunctivae: conjunctivae normal Sclerae: sclerae normal Pupils: Equal, round and reactive pupils present EOM: EOMs intact bilaterally Neck Neck: Yes full ROM, Yes no lymphadenopathy and Yes supple Chest Chest palpation & inspection: normal inspection of the chest Resp Effort & Inspection: normal respiratory effort and able to speak in complete sentences Auscultation: clear to auscultation bilaterally Cardio Rate: regular rate Rhythm: regular rhythm Heart sounds: S1 normal heart sound present and S2 normal heart sound present GI Palpation (GI): Soft to palpation, nontender and no masses Auscultation: normal bowel sounds Back/Spine/Pelvis Back: No back tenderness Neuro General: patient oriented x3, gait normal, tone normal, moves all extremities, Normal light touch and pain sensation and no focal motor deficits Cranial nerves: Yes Equal, round and reactive pupils present and Yes Normal hearing present Cognition (Neuro): normal cognition Sensory Exam: No Sensory deficit (Neuro) Extrem General: Yes full ROM, Yes no joint enlargement and Yes no clubbing, cyanosis or edema Psych Appearance: grossly normal and well kempt Mental Status: mental status grossly normal Speech and movement: Normal speech and movement present Affect: normal affect Attitude: cooperative Thought content: Normal thought content present Results Reviewed Results Reviewed: Laboratory Tests 11/07/24 06:25 Estimat Average Glucose 157 Hemoglobin A1c % 7.1 H Name: Harley Canseco Age/Sex: 73/M : 1950 Unit#: [id number] Attend Dr: Mary Walker MD Re11/07/24 Status: DEP REF Location: [facility] Disch: SPEC : [id number] BHUMIKA: 11/07/24 STATUS: COMP REQ : [id number] RECD: 11/07/24-[address]: Mary Walker MD COMP: 11/07/24 ENTERED: 11/07/[address]: ORDERED: Met Prof Fast, AST, ALT Test Result Flag Reference Sodium 139 135-145 mmol/L Potassium 4.5 3.3-5.1 mmol/L CL 104 96-108 mmol/L CO2 28 22-29 mmol/L Gap 12 12-20 BUN 19 H 9-16 mg/dL Creat 0.91 0.5-1.4 mg/dL eGFR > 60 Chronic Kidney Disease: Estimated GFR < 60 mL/min/1.73m2 Severe Kidney Disease: Estimated GFR < 15 mL/min/1.73m2 FBS 139 H 60-99 mg/dL A fasting glucose of 126 mg/dl or greater on more than one occasion is considered diagnostic of diabetes. CA 9.2 8.4-10.2 mg/dL AST (GOT) 28 5-37 U/L ALT (GPT) 17 0-40 U/L Coding Level of Care Code Est Pt Level 4 (82600) Complex EM visit Add On G2211 Diagnoses Diabetes mellitus with hyperglycemia, without long-term current use of insulin E11.65 Primary hypertension I10 Hypertension type: primary hypertension Assessment & Plan Assessment & Plan (1) Diabetes mellitus with hyperglycemia, without long-term current use of insulin: Code(s): E11.65 - Type 2 diabetes mellitus with hyperglycemia Category: Medical Plan: Recent lab results reviewed with patient, with higher hemoglobin A1c at present compared to last check. Continued on metformin at same dose and rosuvastatin 20 mg at night. Reinforced importance of following diabetic diet and regular exercise with patient. Counseled regarding importance of yearly diabetes retinopathy screening. Patient advised to inspect feet daily, for any signs of injury, callus or infection. Compliance with diet and regular exercise again stressed. Blood pressure goal is less than 130/80, goal LDL is less than 100 and goal hemoglobin A1c is less than 7% follow-up appointment made in--6-months, after fasting labs done. (2) HTN (hypertension): Code(s): I10 - Essential (primary) hypertension Category: Medical Qualifiers: Hypertension type: primary hypertension Qualified Code(s): I10 - Essential (primary) hypertension Plan: Blood pressure today elevated, reinforced importance of taking medication and dietary compliance, currently on lisinopril 20 mg daily goal blood pressure less than 130/80. Orders: Orders Hemoglobin A1c 04/20/25 E11.65 - Type 2 diabetes mellitus with hyperglycemia, E66.811 - Obesity, class 1, E66.09 - Other obesity due to excess calories, Z68.32 - Body mass index [BMI] 32.0-32.9, adult, I10 - Essential (primary) hypertension, I25.10 - Atherosclerotic heart disease of havasupai coronary artery without angina pectoris Alanine Aminotransferase 04/20/25 E11.65 - Type 2 diabetes mellitus with hyperglycemia, E66.811 - Obesity, class 1, E66.09 - Other obesity due to excess calories, Z68.32 - Body mass index [BMI] 32.0-32.9, adult, I10 - Essential (primary) hypertension, I25.10 - Atherosclerotic heart disease of havasupai coronary artery without angina pectoris Aspartate Amino Transferase 04/20/25 E11.65 - Type 2 diabetes mellitus with hyperglycemia, E66.811 - Obesity, class 1, E66.09 - Other obesity due to excess calories, Z68.32 - Body mass index [BMI] 32.0-32.9, adult, I10 - Essential (primary) hypertension, I25.10 - Atherosclerotic heart disease of [place]vasup[place] coronary artery without angina pectoris Lipid Panel 04/20/25 E11.65 - Type 2 diabetes mellitus with hyperglycemia, E66.811 - Obesity, class 1, E66.09 - Other obesity due to excess calories, Z68.32 - Body mass index [BMI] 32.0-32.9, adult, I10 - Essential (primary) hypertension, I25.10 - Atherosclerotic heart disease of havasupai coronary artery without angina pectoris Vitamin D 25-OH Total 04/20/25 E11.65 - Type 2 diabetes mellitus with hyperglycemia, E66.811 - Obesity, class 1, E66.09 - Other obesity due to excess calories, Z68.32 - Body mass index [BMI] 32.0-32.9, adult, I10 - Essential (primary) hypertension, I25.10 - Atherosclerotic heart disease of havasup[place] coronary artery without angina pectoris PSA,Total (Free>4and<10) 04/20/25 E11.65 - Type 2 diabetes mellitus with hyperglycemia, E66.811 - Obesity, class 1, E66.09 - Other obesity due to excess calories, Z68.32 - Body mass index [BMI] 32.0-32.9, adult, I10 - Essential (primary) hypertension, I25.10 - Atherosclerotic heart disease of [place]vasup[place] coronary artery without angina pectoris Basic Metabolic Panel Fasting 04/20/25 E11.65 - Type 2 diabetes mellitus with hyperglycemia, E66.811 - Obesity, class 1, E66.09 - Other obesity due to excess calories, Z68.32 - Body mass index [BMI] 32.0-32.9, adult, I10 - Essential (primary) hypertension, I25.10 - Atherosclerotic heart disease of [place]vasup[place] coronary artery without angina pectoris
[2024-11-08 09:15] VITALS: BP 152/78; PULSE 63; RESP 16; TEMP 36.8; O2SAT 99; BMI 31.9
--- OUTSIDE RECORDS SUMMARY | 2024-11-08 09:27 | XMS_ITS ---
Author Organization [facility] Address [address] [place] [address] Care Team Providers Care Meat Counter Clerk Name Role Phone Denise GRIMES, Mary Primary Care Provider Sara Ozuna Jr, Ander Glez REASON FOR VISIT gerd,screening Encounters Encounter Location Date Provider Diagnosis [facility] Outpatient [address] [place] [phone] 10/09/2024 Ander Ozuna Jr Colon cancer screening [...] Next Appt Details Provider Name:Ander santiago Jr, 04/18/2025 02:15:00 PM, [address] [facility], [address], [place], [address], Progress Notes * AYDE PAULINO RDOB: 0 (73 yo M)Acc No.[id number]:10/09/2024 EGD and COL/MAC Patient:?AYDE PAULINO Provider:?Ander Ozuna MD :1950???Age:73 Y???Sex:Male Rahul e:10/09/2024 Address:[address] [facility], [facility] giovany [facility] Pcp:Mary Walker MD Subjective: * Chief Complaints: * ???1. Gerd,screening. * Medical History:? Objective: * Vitals:? 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 Plan: * Treatment: * Procedure Codes:?66411 DIAGN OSTIC COLONOSCOPY, 0529F INTRVL 3+YRS PTS CLNSCP DOCD, 0528F RCMND FLW-UP 10 YRS DOCD, Modifiers: 1P , 72965 UPPER GI ENDOSCOPY, BIOPSY * * The named appointment provid er may or may not be the originator of this progress note, and it is not deemed complete until electronically signed by the appointment provider. Sign off status: Pending * Provider:?Ander Ozuna MD Date:?0 10/09/2024 Generated for Edgardo ferrer/Kenny/eTransmitting on:?11/08/2024 09:27 AM EDT
--- OUTSIDE RECORDS SUMMARY | 2024-11-08 09:28 | XMS_ITS ---
Author Organization [facility] Address [address] [place] [address] Care Team Providers Care Hospice Team Lead Name Role Phone Denise GRIMES, Mary Primary Care Provider Ander Mejía Jr Unavailable [phone] Allergies No Known Allergies REASON FOR VISIT [...] Problem Status W/U Status Risk Notes Problem 879397664 Gastroesophageal reflux disease, unspecified whether esophagitis present (K21.9) Active confirmed Problem 96690403 Gastric intestin al metaplasia (K31.A0) Active confirmed Problem 259663983 Colon cancer screening (Z12.11) Active confirmed Vital Signs Temperature 97.7 degrees Fahrenheit 07/26/19 25 Blood pressure systolic 000 mm Hg 07/26/19 25 Blood pressure diastolic 00 mm Hg 025 Height 71.75 in 07/26/2024 Weight 235 lbs 07/26/2024 BMI 32.09 kg/m2 07/26/2024 Encounters Encounter Location Date Provider Diagnosis [facility] [address] [place] [address] 07/26/2024 Ander Ozuna Jr Gastroesophageal reflux disease, [...] 1 Year, Reason: Provider Name:Ander santiago Jr, 04/18/2025 02:15:00 PM, [address] [place] [address], [address], [place], [address], Progress Notes * AYDE PAULINO RDOB: 0 (73 yo M)Acc No.[id number]:07/26/2024 Progress Notes Patient:?AYDE PAULINO Provider:?Ander Ozuna MD :1950???Age:73 Y???Sex:Male Rahul e:07/26/2024 Address:[address] [place], [place] [id number] Pcp:Mary Walekr MD Subjective: * Chief Complaints: * ???1. [...] status: . 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 * Medications:?Taking Magnesiu m 300 MG Capsule [...] MD Date:?0 07/26/2024 Generated for Edgardo ferrer/Kenny/eTransmitting on:?11/08/2024 09:27 AM EDT History and Physical Notes * HPI [...]
--- OUTSIDE RECORDS SUMMARY | 2024-11-08 09:28 | XMS_ITS | Patient Health Record ---
Author Organization [facility] Address [address] [place] [address] Care Team Providers Care Blanket Washer Name Role Phone Denise GRIMES, Mary Primary Care Provider Ander Mejía Jr Allergies No Known Allergies Results Component Value Reference Range Notes Glucose, Whole Blood Reviewed date:10/09/2024 04:32:10 PM Interpretation: Performing Lab:[facility], [address] [place] [phone] Notes/Report: Glucose, Whole Blood 177 60-115 mg/dL METER #: [id number] Pathology Reviewed date:10/15/2024 08:31:40 AM Interpretation: Performing Lab:[facility], [address] [place] [phone] Notes/Report: --------- ----- Name: Ayde Canseco ge/Sex: 73/M : 1950 Unit#: [id number] Attend Dr: Ander Ozuna MD Re10/09/24 Status : [facility] Location: [facility] Disch: --------- ----- SPEC : RECD : 10/09/24 STATUS: BECKY XAVIER NUM: [id number] BHUMIKA: 10/09/[address] [facility] [address]: Ander Ozuna MD ENTERED: 10/09/24 SP TYPE: Surgical OTHR DR: Mary Walker MD ORDERED: HE Stain/ , Gross Micro L4/5, IHC/2, Special st. 2, H. pylori/2, AB/PAS/ THIS IS A CORRECT ED REPORT 10/11/246 This is a corrected report. Any previous version s are stored internally and are available if necessary. Diagnosis A. Stomach, antrum l kaylen curvature, biopsy: Antral-type mucosa with moderate chronic, focally active, infl ammation and intestinal metaplasia; indefinite for dysplasia; no Helicobacter organis m seen; multiple additional levels examined. B. Stomach, antrum g reater curvature, biopsy: Antral-type mucosa with moderate chronic inactive inflammatio n and intestinal metaplasia; negative for dysplasia; no Helicobacter organism seen. C. Stomach, angulari s, biopsy: Antral-type and oxyntic mucosa with moderate chronic inactive inflammatio n and intestinal metaplasia; negative for dysplasia; no Helicobacter organism seen. D. Stomach, body gre ater curvature, biopsy: Oxyntic mucosa with mild chronic inactive inflammation; no Hel icobacter organisms seen. E. Stomach, body les ser curvature, biopsy: Oxyntic mucosa with mild chronic inactive inflammation, partia l atrophy and focal intestinal metaplasia; negative for dysplasia; no Helicobacter organism seen. Note: Corrected Report Not e (10/11/2024): Update the description and diagnosis on part A. No other changes are made. Clinical History Gastric intestinal metaplasia Microscopic Description A-E. Microscopic sec tions examined. Intestinal metaplasia is seen in A, B, C and E and no metaplastic changes are seen in D, supported by AB/PAS stains; no Helicobacter organisms are seen, supported by H . pylori immunostain (A and D). CONTINUED ON NEXT PAGE --------- ----- Name: Ayde Canseco ge/Sex: 73/M : 1950 Unit#: [id number] Attend Dr: Ander Ozuna MD Re10/09/24 Status : [facility] Location: [facility] Disch: --------- ----- SPEC : RECD : 10/09/24 STATUS: BECKY MORENITA NUM: [id number] BHUMIKA: 10/09/[address] [facility] [address]: Ander Ozuna MD ENTERED: 10/09/24 SP TYPE: Surgical OTHR DR: Mary Walker MD ORDERED: HE Stain/15 , Gross Micro L4/5, IHC/2, Special st. 2/5, H. pylori/2, AB/PAS/5 Material Received A. Antrum lesser curvature bx B. Antrum greater cu rvature bx C. Angularis bx D. Body greater curvature bx E. Body lesser curvature bx Gross Description Received in five parts. Part A: Received in formalin labeled ?antrum lesser curvature bx? are 2 zabala-pink irregular tissue fragments gerson suring 0.25 and 0.3 cm, submitted in toto in a cassette labeled A. Part B: Received in formalin labeled antrum greater curvature bx? are 2 zabala-pink irregular tissue fragments gerson suring 0.15 and 0.3 cm, submitted in toto in a cassette labeled B. Part C: Received in formalin labeled ?angularis? are 2 zabala-pink irregular tissue fragments measuring 0.2 and 0. 35 cm, submitted in toto in a cassette labeled C. Part D: Received in formalin labeled body greater curvature bx? are 2 zabala-pink irregular tissue fragments eac h measuring 0.25 cm, submitted in toto in a cassette labeled D. Part E: Received in formalin labeled ?body lesser curvature bx are 2 zabala-pink irregular tissue fragments gerson suring 0.15 and 0.25 cm, submitted in toto in a cassette labeled E. CEDS This case was review ed intradepartmentally (A). Special studies orde red and performed: Immunostain for H. pylori on A and D; AB/PAS stains on A, B, C, D and E Copies To: Ander Ozuna MD [address] [place], [place] [id number] Mary Walker MD [address] [address] CONTINUED ON NEXT PAGE --------- ----- Name: Ayde Canseco ge/Sex: 73/M : 1950 Unit#: [id number] Attend Dr: Ander Ozuna MD Re10/09/24 Status : [facility] Location: [facility] Disch: --------- ----- SPEC : RECD : 10/09/24 STATUS: BECKY XAVIER NUM: [id number] BHUMIKA: 10/09/[address] [facility] [address]: Ander Ozuna MD ENTERED: 10/09/24-03 23 SP TYPE: Surgical OTHR DR: Mary Walker MD ORDERED: HE Stain/15 , Gross Micro L4/5, IHC/2, Special st. 2, H. pylori/2, AB/PAS/5 Copies To: (Continued) [phone] --------- ----- Signed (si gnature on file) Landon Allen MD 10/12/24 1529 --------- ----- END OF REPORT Reason For Referral No Information Medications Medication [...] Oral for 90 Active Aspir-81 81mg Active Omeprazole 20 MG 1 capsule 1/2 to 1 h our before morning meal Orally Once a day for 30 days 10/15/2024 Active Metoprolol Succinate ER 100 MG TAKE [...] W/U Status Risk Notes Problem Esophageal reflux (962826462) Esophageal reflux (530.81) Active confirmed Problem 395820231 Colon cancer screening (Z12.11) Active confirmed Problem 511559944 Gastroesophageal reflux disease, unspecified whether esophagitis present (K21.9) Active confirmed Problem 56994019 Gastric intestin al metaplasia (K31.A0) Active confirmed Vital Signs Temperature 97.7 degrees Fahrenheit 07/26/2024 Blood pressure diastolic 00 mm Hg 07/26/2024 Height 71.75 in 07/26/2024 Blood pressure systolic 000 mm Hg 07/26/2024 Weight 235 lbs 07/26/2024 BMI 32.09 kg/m2 07/26/2024 Encounters Encounter Location Date Provider Diagnosis [facility] Outpatient [address] [place] [phone] 10/09/2024 Ander Ozuna Jr Colon cancer screening Z12.11 ; Gastric intestinal metaplasia K31.A0 and Gastro-esophageal reflux disease without esophagitis K21.9 [facility] [address] [place] [phone] 07/26/2024 Ander Ozuna Jr Gastroesophageal reflux disease, unspecified whether esophagitis present K21.9 ; Gastric intestinal metaplasia K31.A0 and Colon cancer screening Z12.11 [facility] [address] [place] [phone] 07/25/[address] [facility] [address] [address] 10/15/2024 Ander Ozuna Jr Assessments Encounter Date Diagnosis (ICD Code) Assessment Notes Treatment Notes Treatment Clinical Notes Section Notes 10/09/2024 Colon cancer screening (ICD-10 - Z12.11) 10/09/2024 Gastric intestinal metaplasia (ICD-10 - K31.A0) 07/26/2024 Gastroesophageal reflux disease, unspecified whether esophagitis [...] and metformin the day before the procedure. 10/09/2024 Gastro-esophageal reflux disease without esophagitis (ICD-10 - K21.9) 07/26/2024 Colon cancer screening (ICD-10 - Z12.11) [...] Provider Name:Ander santiago Jr, 04/18/2025 02:15:00 PM, [address] [place] [address], [address], [place], [address], Insurance Providers Payer Name Payer Address Payer Phone Subscriber Number Group Number Insured Name Patient Relationship to Insured Coverage Start Date Coverage End Date [facility] [address] [place] [address] [id number] AYDE CANSECO Self - patient is the insured Medical (General) History Medical History History ICD Code Diabetes mellitus type 2 Hypertension Hyperlipidemia Thoracic aortic aneurysm, 4.7 cm 05/13 Coronary artery disease Surgical History Surgery Date(Month/Year) Cardiac catheterization
--- OUTSIDE RECORDS SUMMARY | 2024-11-08 09:28 | XMS_ITS ---
Author Organization [facility] Address [address] [place] [address] Care Team Providers Care Accounts Receivable Analyst Name Role Phone Mary Walker MD Primary Care Provider Sara Ozuna Jr, Ander Glez REASON FOR VISIT path Medications Medication SIG (Take, Route, Fr equency, Duration) Notes Start Date End Date Status Omeprazole 20 MG 1 capsule 1/2 to 1 h our before morning meal Orally Once a day for 30 days 10/15/2024 Active Encounters Encounter Location Date Provider Diagnosis [facility] [address] [address] 10/15/2024 Ander Ozuna Jr Plan Of Treatment Medication Medication Name Sig Start Date Stop Date Notes Omeprazole 20 MG 1 capsule 1/2 to 1 h our before morning meal Orally Once a day for 30 days 10/15/2024 Next Appt Details Provider Name:Ander santiago Jr, 04/18/2025 02:15:00 PM, [address] [place] [address], [address] [facility], [place], [address], Progress Notes * AYDE PAULINO RDOB: 0 (73 yo M)Acc No.[id number]:10/15/2024 Patient:?AYDE PAULINO :1950???Age:73 Y???Sex:Male Address:[address] [place] [address] [address] [place], [address] * Refills? Start Omeprazole Capsule Delayed Release, 20 MG, Orally, 30, 1 capsule 1/2 to 1 hour before morning meal, Once a day, 30 days, Refills=5 * true * Date:? Generated for Edgardo ferrer/Kenny/Rodney on:?11/08/2024 09:27 AM EDT
== END 2024-11-08 10:03 | disposition home or self-care (01) ==
LOC: HO.HMCC 09:11
PROVIDERS: PCP Internal Medicine; Visit Provider Internal Medicine
DX: E11.65 Type 2 diabetes mellitus with hyperglycemia (principal); I10 Essential (primary) hypertension

== ENCOUNTER → 2024-11-08 09:11 | Outpatient (BNVA) | payer MEDICARE, SELFPAY | PROVIDERS: PCP Internal Medicine; Visit Provider Internal Medicine | DX: E11.65 Type 2 diabetes mellitus with hyperglycemia (principal); I10 Essential (primary) hypertension; E78.5 Hyperlipidemia, unspecified; E66.811 Obesity, class 1; E66.09 Other obesity due to excess calories; I25.10 Atherosclerotic heart disease of native coronary artery without angina pectoris; Z68.32 Body mass index [BMI] 32.0-32.9, adult; Z68.31 Body mass index [BMI] 31.0-31.9, adult | CPT/HCPCS: 99212 ==

== ENCOUNTER 2025-05-07 06:43 | Outpatient (REF) | payer MEDICARE, SELFPAY ==
[2025-05-07 11:15] LABS: Hemoglobin A1C 121.0873 umol/L
[2025-05-07 11:17] LABS: Alanine Aminotransferase 25 U/L (0-40); Anion Gap 10 (12-20); Aspartate Amino Transferase 30 U/L (5-37); Blood Urea Nitrogen 12 mg/dL (9-16); Calcium 8.9 mg/dL (8.4-10.2); Carbon Dioxide 29 mmol/L (22-29); Chloride 105 mmol/L (96-108); Cholesterol 102 mg/dL (<200); Estimated Glomerular Filt Rate > 60; HDL Cholesterol 42 mg/dL (>40); Potassium 4.2 mmol/L (3.3-5.1); Sodium 140 mmol/L (135-145); Triglycerides 104 mg/dL (<150)
[2025-05-07 11:32] LABS: PSA,Total (Free>4and<10) 0.51 ng/mL (0.00-4.00)
== END 2025-05-07 06:44 | disposition home or self-care (01) ==
LOC: HO.HMGCLDS 06:43
PROVIDERS: PCP Internal Medicine; Visit Provider Internal Medicine
DX: E11.65 Type 2 diabetes mellitus with hyperglycemia (principal); E66.811 Obesity, class 1; Z68.32 Body mass index [BMI] 32.0-32.9, adult; I10 Essential (primary) hypertension; I25.10 Atherosclerotic heart disease of native coronary artery without angina pectoris; Z12.5 Encounter for screening for malignant neoplasm of prostate
CPT/HCPCS: 36415; 80048; 80061; 82306; 83036; 84153; 84450; 84460

== ENCOUNTER 2025-05-08 10:04 | Outpatient (AMB) | payer MEDICARE, SELFPAY ==
--- OUTSIDE RECORDS SUMMARY | 2024-10-09 03:30 | XMS_ITS ---
Author Organization [facility] Address [address] [place] [id number] Care Team Providers Care Sprayer Automatic Spray Machine Name Role Phone Denise GRIMES, Mary Primary Care Provider Sara Ozuna Jr, Ander Glez REASON FOR VISIT gerd,screening Encounters Encounter Location Date Provider Diagnosis [facility] [place] [facility] [address] [place] [id number] 10/09/2024 Ander Ozuna Jr Colon cancer screening Z12.11 ; Gastric intestinal metaplasia K31.A0 and Gastro-esophageal reflux disease without esophagitis K21.9 Assessments Encounter Date Diagnosis (ICD Code) Assessment Notes Treatment Notes Treatment Clinical Notes Section Notes 10/09/2024 Colon cancer screening (ICD-10 - Z12.11) 10/09/2024 Gastric intestinal metaplasia (ICD-10 - K31.A0) 10/09/2024 Gastro-esophagea l reflux disease without esophagitis (ICD-10 - K21.9) Plan Of Treatment Next Appt Details Provider Name:Ander santiago Jr, 07/24/2025 11:20:00 AM, [address] [facility], [address], [place], [address], Progress Notes * AYDE PAULINO RDOB: 0 (74 yo M)Acc No.[id number]:10/09/2024 EGD and COL/MAC Patient: AYDE BROWN Provider: Akhil Ozuna MD :1950 A ge:73 Y S ex:Male Date:10/09/2024 Address:[address] [facility] [place], [id number] Pcp:Mary Walker MD Subjective: * Chief Complaints: * G erd,screening Assessment: * Assessment: 1. C olon cancer screening - Z12.11 (Primary) 2 . G astric intestinal metaplasia - K31.A0 3 . G maricruz-esophageal reflux disease without esophagitis - K21.9? Plan: * Procedure Codes: 4 5378 DIAGNOSTIC [id number] INTRVL 3+YRS PTS CLNSCP [id number] RCMND FLW-UP 10 YRS DOCD, Modifiers: 1P 69759 UPPER GI ENDOSCOPY, BIOPSY Billing Information: * Procedure Codes: 32881 DIAGNOSTIC COLONOSCOPY. 0529F INTRVL 3+YRS PTS CLNSCP DOCD. 0528F RCMND FLW-UP 10 YRS DOCD. Modifiers: 1P 00338 UPPER GI ENDOSCOPY, BIOPSY. * The named appointment provid er may or may not be the originator of this progress note, and it is not deemed complete until electronically signed by the appointment provider. Sign off status: Pending * Provider: Akhil Ozuna MD Date: 0 10/09/2024 Generated for Edgardo ferrer/Kenny/Leroyitting on: 07/08/2024 06:58 PM EST
--- OUTSIDE RECORDS SUMMARY | 2025-04-18 09:15 | XMS_ITS ---
Author Organization [facility] Address [address] [facility] [address] [place] [address] Care Team Providers Care Gas Leak Inspector Name Role Phone Denise GRIMES, Mary Primary Care Provider Sara Ozuna Jr, Ander Glez [phone] REASON FOR VISIT Patient presents today for gastric intestinal metaplasia W/indefinite for dysplasia Encounters Encounter Location Date Provider Diagnosis [facility] [address] [facility] [address] [place] [phone] 04/18/2025 Ander Ozuna Jr Plan Of Treatment Next Appt Details Provider Name:Ander santiago Jr, 07/24/2025 11:20:00 AM, [address] [facility], [address], [place], [address], Progress Notes * AYDE PAULINO RDOB: 0 (74 yo M)Acc No.[id number]:04/18/2025 Progress Notes Patient: Papo BOURGEOIS AYDE Epperson Provider: Akhil Ozuna MD :1950 A ge:74 Y S ex:Male Date:04/18/2025 Address: [place], [place] Pcp:Mary Walker MD Subjective: * Chief Complaints: * P atient presents today for gastric intestinal metaplasia W/indefinite for dysplasia * The named appointment provid er may or may not be the originator of this progress note, and it is not deemed complete until electronically signed by the appointment provider. Sign off status: Pending * Provider: Akhil Ozuna MD Date: Generated for Edgardo ferrer/Kenny/Rodney on: 07/08/2024 06:58 PM EST
--- NOTE | 2025-05-08 10:37 | A.OFFPC_ITS ---
Vital Signs 05/08/25 10:38 Height 5 ft 11 in Weight 227 lb BMI 31.7 BP 138/80 Blood Pressure Location Rt brachial Position Sitting Respiration 16 Pulse 62 Pulse Source Pulse Oximeter Temp 98.8 F Temp Source Oral Pulse Oximetry (%) 98 Oxygen Delivery Method Room Air Intake Visit Reasons: Annual PE Intake Note: Pt is here today for his PE Saturator Required: No Allergies No Known Allergies Allergy (Verified 05/08/25 10:49) Medication List - Last Reconciled 05/08/25 by Mary Walker MD albuterol sulfate 90 mcg/actuation 2 puffs inhalation Q6H PRN aspirin (Adult Low Dose Aspirin) 81 mg PO DAILY cholecalciferol (vitamin D3) 50 mcg PO DAILY lisinopril 20 mg PO DAILY magnesium 250 mg PO DAILY metformin Take 2 tablets or a 1000 mg in the morning with breakfast and 500 mg or 1 tablet at night with supper 90 days metoprolol succinate ER 100 mg PO DAILY omeprazole 20 mg PO DAILY rosuvastatin 20 mg PO BEDTIME Tobacco use date assessed: 05/08/25 Fall risk assessment: No Falls in past year Last assessed Fall Risk: 05/08/25 Dental Screening Dental Screen Date: 05/08/25 Did you have a dental visit in the last 12 months?: Yes Did you have a dental problem in the last 6 months where you did not have access to dental care?: No Was dental information given to patient?: Patient has dentist HPI Annual PE HPI Details 74 year-old male with history of type 2 diabetes mellitus, hypertension, dyslipidemia, here today for his physical exam, The patient reports a new onset of intermittent chest pain, described as a pressure sensation, which he also feels in his back. The pain is not prolonged, occurs about once a week, and resolves on its own without associated shortness of breath, arm pain, or choking sensation. He has a history of a normal EKG and an echocardiogram in 2019. The patient has a history of type 2 diabetes and is currently on metformin 1500 mg. He admits to not closely watching his diet, which includes foods such as potatoes and rice. His cholesterol and vitamin D levels are normal. He reports sometimes experiencing bloating, which may be related to greasy foods or dairy intake. His prostate is reported as normal. 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 Brook Johnson, and was referred to [facility] for evaluation. He underwent a colonoscopy and endoscopy in September of this year with Dr. Ozuna, who prescribed omeprazole, but a follow-up appointment was mi ssed and rescheduled for July or August. The patient recently received his flu shot. He is up-to-date on his pneumonia vaccine and had a Tdap in 2010, but is due for a tetanus booster. He has not received the shingles or RSV vaccines. [facility] Medical History GERD (gastroesophageal reflux disease) Nocturnal leg cramps Obesity due to excess calories Diabetes mellitus with hyperglycemia, without long-term current use of insulin HTN (hypertension) History of cardiomyopathy CAD (coronary artery disease) Thoracic aortic aneurysm Surgical History H/O colonoscopy H/O cardiac catheterization Family History Father Diabetes mellitus Mother CVD (cardiovascular disease) Myocardial infarction Sister HTN (hypertension) Breast cancer Sister Breast cancer HTN (hypertension) Brother Cancer of pancreas Lung cancer HTN (hypertension) Sister No problems noted. Sister No problems noted. Sister No problems noted. Sister No problems noted. Daughter No problems noted. Daughter No problems noted. Social History Housing: House Patient Tobacco Use Status: Former Tobacco user Tobacco use type: Cigarette Years Smoked: 42 e-Cigarette/Vaping Use: Never Used Second Hand Smoke Exposure: No service: No Current occupational status: retired Cognitive needs: No Hearing needs: No Vision needs: Yes Questionnaire Thrive Questionnaire Date Thrive assessed: 08/04/24 I am a: Patient What is your living situation today?: I have a steady place to live Within the past 12 months, did the food you bought not last and you didn't have the money to get more?: Never true Within the past 12 months, did you worry whether your food would run out before you got money to buy more?: Never true Do you have trouble paying for medicines?: No Do you have trouble getting transportation to medical appointments?: No Do you have trouble paying your heating and electricity bill?: No Do you have trouble taking care of your child, family member or friend?: No Do you have trouble with day-to-day activities such as bathing, preparing meals, shopping, managing finances, etc.?: No Are you currently unemployed and looking for a job?: No Are you interested in more education?: No Please select the resources that you would like help with: None Currently or been in a relationship where the following occur: No concerns reported THRIVE Score: 0 OLIVIER-7 AMB Questionnaire OLIVIER-7 Date OLIVIER - 7 assessed: 08/06/24 Source: Developed by Drs. Barrington Morocho, Pat Eli, Moi Morin and colleagues, with an educational natanael from [email or web address]. Review of Systems Const Denies chills, Denies fatigue, Denies fever(s), Denies frequent falls, Denies weakness and Denies weight loss Eyes Details: sees Brook Johnson OD this year Denies change in vision ENT Reports no additional complaints and Reports Normal hearing present Card Reports as per HPI, Denies leg edema, Denies lightheadedness, Denies palpitations and Denies dyspnea Resp Denies cough and Denies dyspnea GI Denies hematochezia and Denies change in stool character Reports no additional complaints Musc Denies abnormal gait, Denies muscle weakness, Denies numbness, Denies radiating pain into limb and Denies tingling Skin/Breast Denies lesions and Denies rash Neuro Reports Normal hearing present, Denies abnormal gait, Denies frequent falls, Denies numbness, Denies Sensory deficit (Neuro), Denies tingling and Denies weakness Psych Reports no additional complaints Endo Denies fatigue and Denies palpitations Germain/Lymph Reports no additional complaints Aller/Immun Reports no additional complaints Physical exam (Primary Care) Vital Signs: Last Vital Signs Temp 98.8 F 05/08/25 10:38 Pulse 62 05/08/25 10:38 Resp 16 05/08/25 10:38 BP 138/80 05/08/25 10:38 Pulse Ox 98 05/08/25 10:38 Oxygen Delivery Method Room Air 05/08/25 10:38 BMI result Body Mass Index 31.7 Tobacco/Smoking Status: Tobacco use Status Tobacco use date assessed 05/08/25 05/08/25 10:42 Patient Tobacco Use Status Former Tobacco user 05/08/25 10:42 Tobacco use type Cigarette 05/08/25 10:42 e-Cigarette/Vaping Use Never Used 05/08/25 10:42 Thrive Assessment: Date of Thrive Assessment Date Thrive assessed 08/04/24 05/08/25 10:42 Currently or been in a relationship where the following occur: No concerns reported Const General: comfortable, no acute distress and alert Nutritional Appearance: obese Orientation/consciousness: patient oriented x3 HENMT Ears: external ears normal General nose exam: Normal external nose present and No nasal discharge present Mouth: oropharynx normal and moist mucous membranes Eyes General: appearance normal, both eyes and all related structures Conjunctivae: conjunctivae normal Sclerae: sclerae normal Pupils: Equal, round and reactive pupils present EOM: EOMs intact bilaterally Neck Neck: Yes full ROM, Yes no lymphadenopathy and Yes supple Chest Chest palpation & inspection: normal inspection of the chest Resp Effort & Inspection: normal respiratory effort and able to speak in complete sentences Auscultation: clear to auscultation bilaterally Cardio Rate: regular rate Rhythm: regular rhythm Heart sounds: S1 normal heart sound present and S2 normal heart sound present GI Palpation (GI): Soft to palpation, nontender and no masses Auscultation: normal bowel sounds General: Yes no CVA tenderness Back/Spine/Pelvis Back: no CVA tenderness and No back tenderness Skin General skin exam: no rashes or lesions noted Neuro General: patient oriented x3, gait normal, tone normal, moves all extremities, Normal light touch and pain sensation and no focal motor deficits Cranial nerves: Yes Equal, round and reactive pupils present and Yes Normal hearing present Cognition (Neuro): normal cognition Sensory Exam: No Sensory deficit (Neuro) Extrem General: Yes full ROM, Yes no joint enlargement and Yes no clubbing, cyanosis or edema Psych Appearance: grossly normal and well kempt Mental Status: mental status grossly normal Speech and movement: Normal speech and movement present Affect: normal affect Results Reviewed Results Reviewed: Laboratory Tests 08/04/24 05/07/25 07:58 06:52 Estimat Average Glucose 154 Hemoglobin A1c % 7.0 H Microalb/Creat Ratio 8.2 Name: Harley Canseco Age/Sex: 74/M : 1950 Unit#: [id number] Attend Dr: Mary Walker MD Re05/07/25 Status: DEP REF [facility]: [facility] Disch: SPEC : [id number] BHUMIKA: 05/07/25 STATUS: COMP REQ : [id number] RECD: 05/07/25-[address]: Mary Walker MD COMP: 05/07/25 ENTERED: 05/07/[address] [facility] [address]: ORDERED: Met Prof Fast, AST, ALT, Lipid Panel, Vitamin D 25-OH Test Result Flag Reference Sodium 140 135-145 mmol/L Potassium 4.2 3.3-5.1 mmol/L CL 105 96-108 mmol/L CO2 29 22-29 mmol/L Gap 10 L 12-20 BUN 12 9-16 mg/dL Creat 0.82 0.5-1.4 mg/dL eGFR > 60 Chronic Kidney Disease: Estimated GFR < 60 mL/min/1.73m2 Severe Kidney Disease: Estimated GFR < 15 mL/min/1.73m2 FBS 165 H 60-99 mg/dL A fasting glucose of 126 mg/dl or greater on more than one occasion is considered diagnostic of diabetes. CA 8.9 8.4-10.2 mg/dL AST (GOT) 30 5-37 U/L ALT (GPT) 25 0-40 U/L Triglyceride 104 <150 mg/dL Desirable Triglyceride: less than 150 mg/dL Borderline High Triglyceride 150-199 mg/dL High Triglyceride: 200-499 mg/dL Very High Triglyceride: greater than or equal to 5OO mg/dL Cholesterol 102 <200 mg/dL Desirable Cholesterol: less than 200 mg/dL Borderline High Cholesterol: 200-239 mg/dL High Cholesterol: greater than 239 mg/dL LDL Calculated 40 <100 mg/dL Desirable LDL: less than 100 mg/dL Near Optimal/Above Optimal LDL: 110-129 mg/dL Borderline High LDL: 130-159 mg/dL High LDL: 160-189 mg/dL Very High LDL: greater than or equal to 190 mg/dL HDL 42 >40 mg/dL Desirable HDL: greater than 40 mg/dL Note: This HDL assay may give artificially low results in patients with liver disease. Vitamin D 25-OH 41.2 >30 ng/mL Health Based Reference Values* < 20 ng/mL Deficient 20-30 ng/mL Insufficient > 30 ng/mL Sufficient Coding Level of Care Code Est Pt Prev Care >65y(56703) Diagnoses Annual visit for general adult medical examination with abnormal findings Z00. CAD (coronary artery disease) I25.10 Primary hypertension I10 Hypertension type: primary hypertension Diabetes mellitus with hyperglycemia, without long-term current use of insulin E11.65 Class 1 obesity due to excess calories with serious comorbidity and body mass index (BMI) of 32.0 to 32.9 in adult E66.811; E66.09; Z68.32 Body mass index: BMI 32.0-32.9 Obesity classification: adult class 1 (BMI 30 - 34.9) Serious obesity comorbidity presence: with serious comorbidity Intermittent chest pain R07.9 Assessment & Plan Assessment & Plan (1) Annual visit for general adult medical examination with abnormal findings: Code(s): Z00. - Encounter for general adult medical examination with abnormal findings Plan: Reviewed recent fasting lab results with patient. Continue with regular dental visit every 6 months and yearly eye exam which is currently up-to-date.. Take adequate calcium in diet and vitamin-D 3 at 2000 IU per cap once a day, in add ition to weight-bearing exercises to help maintain good muscle tone and weight control. Instructed to do self-testicular exam check for any mass. Up-to-date with his screening colonoscopy. Up-to-date with his flu vaccine and pneumococcal vaccine. (2) CAD (coronary artery disease): Comment: follows w/[facility] Code(s): I25.10 - Atherosclerotic heart disease of [place] coronary artery without angina pectoris Category: Medical Plan: patient's cholesterol is well-controlled on rosuvastatin , continue aspirin 81 mg daily (3) HTN (hypertension): Code(s): I10 - Essential (primary) hypertension Category: Medical Qualifiers: Hypertension type: primary hypertension Qualified Code(s): I10 - Essential (primary) hypertension Plan: Continue lisinopril 20 mg daily and metoprolol succinate ER 100 mg daily. Reinforced importance of following a low sodium diet, getting regular exercise, and lowering stress levels. (4) Diabetes mellitus with hyperglycemia, without long-term current use of insulin: Code(s): E11.65 - Type 2 diabetes mellitus with hyperglycemia Category: Medical Plan: The patient will continue metformin 1500 mg daily. If his A1C is above 7% at the next check, the dose will be increased to twice a day. Dietary counseling was provided regarding moderation of high-glycemic foods such as rice and potatoes. Follow-up labs will be ordered for August. (5) Obesity due to excess calories: Code(s): E66.09 - Other obesity due to excess calories Category: Medical Qualifiers: Body mass index: BMI 32.0-32.9 Obesity classification: adult class 1 (BMI 30 - 34.9) Serious obesity comorbidity presence: with serious comorbidity Qualified Code(s): E66.811 - Obesity, class 1; E66.09 - Other obesity due to excess calories; Z68.32 - Body mass index [BMI] 32.0-32.9, adult Plan: Stressed importance of adhering to recommended diet and getting regular exercise. (6) Intermittent chest pain: Code(s): R07.9 - Chest pain, unspecified Plan: The patient reports new, intermittent, pressure-like chest pain, none at present . Given his history of diabetes, a cardiac etiology must be considered despite some features suggesting a musculoskeletal origin. 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 A stress test may be indicated. Orders: Orders Alanine Aminotransferase 08/18/25 I10 - Essential (primary) hypertension, I25.10 - Atherosclerotic heart disease of [place] coronary artery without angina pectoris, I71.2 - Thoracic aortic aneurysm, without rupture, E11.65 - Type 2 diabetes mellitus with hyperglycemia, E66.811 - Obesity, class 1, E66.09 - Other obesity due to excess calories, Z68.32 - Body mass index [BMI] 32.0-32.9, adult, Z00.01 - Encounter for general adult medical examination with abnormal findings Basic Metabolic Panel Fasting 08/18/25 I10 - Essential (primary) hypertension, I25.10 - Atherosclerotic heart disease of [place] coronary artery without angina pectoris, I71.2 - Thoracic aortic aneurysm, without rupture, E11.65 - Type 2 diabetes mellitus with hyperglycemia, E66.811 - Obesity, class 1, E66.09 - Other obesity due to excess calories, Z68.32 - Body mass index [BMI] 32.0-32.9, ad ult, Z00.01 - Encounter for general adult medical examination with abnormal findings Lipid Panel 08/18/25 I10 - Essential (primary) hypertension, I25.10 - Atherosclerotic heart disease of [place] coronary artery without angina pectoris, I71.2 - Thoracic aortic aneurysm, without rupture, E11.65 - Type 2 diabetes mellitus with hyperglycemia, E66.811 - Obesity, class 1, E66.09 - Other obesity due to excess calories, Z68.32 - Body mass index [BMI] 32.0-32.9, adult, Z00.01 - Encounter for general adult medical examination with abnormal findings Vitamin D 25-OH Total 08/18/25 I10 - Essential (primary) hypertension, I25.10 - Atherosclerotic heart disease of [place] coronary artery without angina pectoris, I71.2 - Thoracic aortic aneurysm, without rupture, E11.65 - Type 2 diabetes mellitus with hyperglycemia, E66.811 - Obesity, class 1, E66.09 - Other obesity due to excess calories, Z68.32 - Body mass index [BMI] 32.0-32.9, adult, Z00.01 - Encounter for general adult medical examination with abnormal findings Hemoglobin and Hematocrit 08/18/25 I10 - Essential (primary) hypertension, I25.10 - Atherosclerotic heart disease of [place] coronary artery without angina pectoris, I71.2 - Thoracic aortic aneurysm, without rupture, E11.65 - Type 2 diabetes mellitus with hyperglycemia, E66.811 - Obesity, class 1, E66.09 - Other obesity due to excess calories, Z68.32 - Body mass index [BMI] 32.0-32.9, adult, Z00.01 - Encounter for general adult medical examination with abnormal findings Aspartate Amino Transferase 08/18/25 I10 - Essential (primary) hypertension, I25.10 - Atherosclerotic heart disease of [place] coronary artery without angina pectoris, I71.2 - Thoracic aortic aneurysm, without rupture, E11.65 - Type 2 diabetes mellitus with hyperglycemia, E66.811 - Obesity, class 1, E66.09 - Other obesity due to excess calories, Z68.32 - Body mass index [BMI] 32.0-32.9, adult, Z00.01 - Encounter for general adult medical examination with abnormal findings Hemoglobin A1c 08/18/25 I10 - Essential (primary) hypertension, I25.10 - Atherosclerotic heart disease of [place] coronary artery without angina pectoris, I71.2 - Thoracic aortic aneurysm, without rupture, E11.65 - Type 2 diabetes mellitus with hyperglycemia, E66.811 - Obesity, class 1, E66.09 - Other obesity due to excess calories, Z68.32 - Body mass index [BMI] 32.0-32.9, adult, Z00.01 - Encounter for general adult medical examination with abnormal findings Microalbumin, Random (w Creat) 08/18/25 I10 - Essential (primary) hypertension, I25.10 - Atherosclerotic heart disease of [place] coronary artery without angina pectoris, I71.2 - Thoracic aortic aneurysm, without rupture, E11.65 - Type 2 diabetes mellitus with hyperglycemia, E66.811 - Obesity, class 1, E66.09 - Other obesity due to excess calories, Z68.32 - Body mass index [BMI] 32.0-32.9, adult, Z00.01 - Encounter for general adult medical examination with abnormal findings
[2025-05-08 10:38] VITALS: BP 138/80; PULSE 62; RESP 16; TEMP 37.1; O2SAT 98; BMI 31.7
--- OUTSIDE RECORDS SUMMARY | 2025-05-08 18:58 | XMS_ITS | Patient Health Record ---
Author Organization [facility] Address [address] [place] [address] Care Team Providers Care Search Engine Marketing Manager Name Role Phone Denise GRIMES, Mary Primary Care Provider Ander Mejía Jr Unavailable [phone] Allergies No Known Allergies Results Component Value Reference Range Flag Notes Glucose, Whole Blood Reviewed date:10/09/2024 04:32:10 PM Interpretation: Performing Lab:[facility], [address] [place] [phone] Notes/Report: Glucose, Whole Blood 177 60-115 mg/dL H [facility] #: [id number] Pathology Reviewed date:10/15/2024 08:31:40 AM Interpretation: Performing Lab:[facility], [address] [place] [phone] Notes/Report: Reason For Referral No Information Medications Medication SIG (Take, Route, Frequency, Duration) Notes Start Date End Date Status Vitamin D-3 25 MCG (1000 UT) Capsule 1 capsule Orally Once a day; Duration: 30 day(s) Active Magnesium 300 MG Capsule 1 capsule with a meal Orally Once a day; Duration: 30 day(s) Active MiraLax (colon prep) 8.3 ounce ((238) grams mixed with Gatorade or Crystal Light orally begin at 5:00 p.m. the day before the procedure; Duration: 1 day 07/26/2024 Active Rosuvastatin Calcium 20 MG Tablet TAKE ONE TABLET BY MOUTH EVERY EVENING AT BEDTIME Oral; Duration: 90 Active Aspir-81 81mg Active Metoprolol Succinate ER 100 MG Tablet Extended Release 24 Hour TAKE ONE TABLET BY MOUTH EVERY DAY Oral; Duration: 90 Active Omeprazole 20 MG Capsule Delayed Release TAKE ONE CAPSULE BY MOUTH 1/2 TO 1 HOUR BEFORE MORNING MEAL ONCE DAILY; Duration: 30 Active metFORMIN HCl 500 MG Tablet TAKE ONE TAB LET BY MOUTH TWICE A DAY; TAKE WITH SUPPER Oral; Duration: 90 Active Lisinopril 20 MG Tablet TAKE ONE TABLET BY MOUTH EVERY DAY Oral; Duration: 90 Active Immunizations Vaccine Route Administration Date Status Comme nts Influenza Unknown 04/10/2024 Administered Social History Social History Additional Details Category Social Info Options Details Miscellaneous: 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 Problems Problem Type SNOMED Code ICD Code Onset Dates Problem Status W/U Status Risk Notes Problem Esophageal reflux (832386874) Esophageal reflux (530.81) Active confirmed Problem Colon cancer screening (399864002) Colon cancer screening (Z12.11) Active confirmed Problem Gastroesophageal reflux disease (193571450) Gastroesophageal reflux disease, unspecified whether esophagitis present (K21.9) Active confirmed Problem Gastric intestinal metaplasia (42028922) Gastric intestinal metaplasia (K31.A0) Active confirmed Vital Signs Temperature 97.7 degrees Fahrenheit 07/26/2024 Blood pressure diastolic 00 mm Hg 07/26/2024 Height 71.75 in 07/26/2024 Blood pressure systolic 000 mm Hg 07/26/2024 Weight 235 lbs 07/26/2024 BMI 32.09 kg/m2 07/26/2024 Encounters Encounter Location Date Provider Diagnosis [facility] Outpatient [address] [place] [id number] 10/09/2024 Ander Ozuna Jr Colon cancer screening Z12.11 ; Gastric intestinal metaplasia K31.A0 and Gastro-esophageal reflux disease without esophagitis K21.9 [facility] [address] [place] [phone] 07/26/2024 Ander Ozuna Jr Gastroesophageal reflux disease, unspecified whether esophagitis present K21.9 ; Gastric intestinal metaplasia K31.A0 and Colon cancer screening Z12.11 [facility] [address] [place] [phone] 07/25/2024 Ander Ozuna Jr [facility] [address] [place] [phone] 10/15/2024 Ander Ozuna Jr [facility] [address] [place] [address] 04/16/2025 Ander Ozuna Jr Assessments Encounter Date Diagnosis (ICD Code) Assessment Notes Treatment Notes Treatment Clinical Notes Section Notes 10/09/2024 Gastric intestinal metaplasia (ICD-10 - K31.A0) 10/09/2024 Colon cancer screening (ICD-10 - Z12.11) 07/26/2024 Gastroesophageal reflux disease, unspecified whether esophagitis [...] esophagitis (ICD-10 - K21.9) Plan Of Treatment Future Test Test Name Order Date COLONOSCOPY 05/24/2012 UPPER GI ENDOSCOPY 09/26/2013 UPPER GI ENDOSCOPY 07/26/2024 COLONOSCOPY 07/26/2024 Next Appt Details Provider Name:Ander santiago Jr, 07/24/2025 11:20:00 AM, [address], [address], [place], [phone], Insurance Providers Payer Name Payer Address Payer Phone Subscriber Number Group Number Insured Name Patient Relationship to Insured Coverage Start Date Coverage End Date [facility] [address] [place] [address] [id number] AYDE PAULINO Self - patient is the insured Medical (General) History Medical History History ICD Code Diabetes mellitus type 2 Hypertension Hyperlipidemia Thoracic aortic aneurysm, 4.7 cm 05/13 Coronary artery disease Surgical History Surgery Date(Month/Year) Cardiac catheterization
== END 2025-05-08 11:19 | disposition home or self-care (01) ==
LOC: HO.HMCC 10:05
PROVIDERS: PCP Internal Medicine; Visit Provider Internal Medicine
DX: Z00.01 Encounter for general adult medical examination with abnormal findings (principal); I25.10 Atherosclerotic heart disease of native coronary artery without angina pectoris; I10 Essential (primary) hypertension; E11.65 Type 2 diabetes mellitus with hyperglycemia; E66.811 Obesity, class 1; E66.09 Other obesity due to excess calories; Z68.32 Body mass index [BMI] 32.0-32.9, adult; R07.9 Chest pain, unspecified

== ENCOUNTER → 2025-05-08 10:04 | Outpatient (BNVA) | payer MEDICARE, SELFPAY | PROVIDERS: PCP Internal Medicine; Visit Provider Internal Medicine | DX: Z00.01 Encounter for general adult medical examination with abnormal findings (principal); I25.10 Atherosclerotic heart disease of native coronary artery without angina pectoris; I10 Essential (primary) hypertension; E11.65 Type 2 diabetes mellitus with hyperglycemia; E66.811 Obesity, class 1; E66.09 Other obesity due to excess calories; R07.9 Chest pain, unspecified; Z68.31 Body mass index [BMI] 31.0-31.9, adult | CPT/HCPCS: 99397 ==